=== PATIENT | male | born 1945 | race Caucasian/White ===

== ENCOUNTER 2024-08-06 20:17 | Emergency (ER) | payer MEDICARE, BC, SELFPAY ==
[2024-08-06] VITALS (7 sets, daily range): BP systolic 124–136; BP diastolic 76–81; PULSE 72–78; RESP 12–23; TEMP 36.8–36.9; O2SAT 93–95; BMI 29.8; BMI 40.6
--- NOTE | 2024-08-06 21:32 | PD.EDBACK ---
ED Back Injury Pain RME/HPI General Chief Complaint: Back Pain/Injury Stated Complaint: BACK PAIN Time Seen by Provider: 08/06/24 21:34 Source: patient, EMS, RN notes reviewed and old records reviewed Arrival date/time: 08/06/24 20:17 Mode of arrival: EMS Limitations: no limitations RME / HPI RME / HPI Narrative: 78-year-old male with past medical history of diabetes, CKD, hypertension, prostate cancer with ? Mets, HFpEF on 80 mg of Lasix who presented to the ED due to back pain. Patient states that she has been having stabbing, non-radiationg back pain for the past 3 months, increased today rated 10 out of 10, denies any trauma to the area, he also endorses some shortness of breath but relates it to the pain at this time. Patient denies other associated symptoms to include fever, urinary complaints, hematuria, acute chest pain, syncope, or abdominal pain. Improved with rest, worse with movement today Patient at baseline uses a walker to perform his ADLs however currently is unable to walk, however is able to extend the knee bend the knee bilaterally with equal sensation on all 4 extremities, he denies any urinary or bowel incontinence Treatments prior to arrival: other (No meds prior to arrival) Related Data Home Medications ?Medication ?Instructions ?Recorded ?Confirmed aspirin 81 mg capsule 81 mg PO QDAY 12/15/22 12/15/22 atorvastatin 20 mg tablet 20 mg PO QDAY 12/15/22 12/15/22 clonidine HCl 0.1 mg tablet 0.1 mg PO QDAY 12/15/22 12/15/22 dapagliflozin propanediol 10 mg 10 mg PO QDAY 12/15/22 12/15/22 tablet (Farxiga) finerenone 20 mg tablet (Kerendia) 20 mg PO QDAY 12/15/22 12/15/22 furosemide 40 mg tablet (Lasix) 40 mg PO QAM 12/15/22 12/15/22 hydralazine 50 mg tablet 50 mg PO TID 12/15/22 12/15/22 pantoprazole 40 mg tablet,delayed 40 mg PO QDAY 12/15/22 12/15/22 release pregabalin 50 mg capsule 50 mg PO QDAY 12/15/22 12/15/22 sildenafil 25 mg tablet 25 mg PO QDAY PRN Lung function 12/15/22 12/15/22 sitagliptin phosphate 100 mg 100 mg PO QDAY 12/15/22 12/15/22 tablet (Januvia) Allergies Allergy/AdvReac Type Severity Reaction Status Date / Time No Known Allergies Allergy Verified 08/06/24 20:20 Review of Systems Review of Systems Systems Reviewed: All systems reviewed, normal except as documented ED Exam Narrative Physical exam: Physical Exam GENERAL: NAD, AAOx3, obese HEENT: Moist mucosa. Eyes open, symmetrical, & clear CARDIO: Heart RRR, no obvious murmurs PULM: No noted coughing/dyspnea CTA B/L, no R/W/R GI: Abdomen soft, nondistended, no pain on palpation. BSx4 SKIN/MSK/EXT: No wounds/rashes/edema/amputations, no pain on palpation. Pedal pulses present B/L NEURO: AAOx3, able to move all 4 extremities, good extension and fexion of all 4 extremities, reflexes on B/L lower extremities +2, anal wink present. Normal L4-5 S1 reflexes motor or sensory. General Limitations: Present no limitations Course Course Course Narrative: 2149 CBC, CMP, Mag, UA ordered, CT lumbar wo contrast ordered 2209 CBC, CMP unremarkable, creatinine 2.1 which is around the patients baseline, pending CT lumbar at [facility] time [address] shows Postop fluid collection posterior to L4 4 x 3.3 x 2.5 cm, Status post transpedicular lumbar fusion L4-S1 with anatomic alignment, Small fractures involving the inferior left endplate L3, clinical correlation is advised, Moderate spinal stenosis L3-L4. Will order MRI lumbar spine w/wo contrast in the am. Quality Measures none Orders Category Date Time Status Insert IV STAT Care 08/06/24 21:45 Active MRI Screening NOW Care 08/07/24 00:[address] lumbar spine wo con Stat Exams 08/06/24 21:36 Completed MR lumbar spine wo/w con Stat Exams 08/07/24 Ordered CBC Stat Lab 08/06/24 22:10 Completed CMP [Comprehensive Metabolic Panel] Stat Lab 08/06/24 22:10 Completed Magnesium Stat Lab 08/06/24 22:10 Completed Urinalysis Stat Lab 08/06/24 20:54 Completed HYDROmorphone INJ [Dilaudid Inj] Med 08/06/24 22:10 Discontinued 0.5 mg IVP X1 ONE BiPAP / CPAP HS RT 08/06/24 23:04 Active Vital Signs Vital signs: Vital Signs Temperature 98.4 F 08/06/24 20:18 Pulse Rate 77 08/06/24 20:18 Respiratory Rate 17 08/06/24 20:18 Blood Pressure 124/76 08/06/24 20:18 Pulse Oximetry (%) 93 L 08/06/24 20:18 Oxygen Delivery Method Nasal Cannula 08/06/24 20:18 Oxygen Flow Rate 6 08/06/24 20:18 Back Pain / Injury MDM Narrative MDM Narrative:: 78-year-old male with past medical history of diabetes, CKD, hypertension, prostate cancer with ? Mets, HFpEF on 80 mg of Lasix who presented to the ED due to back pain. Patient states that she has been having back pain for the past 3 months ran out rated 10 out of 10 he also endorses some shortness of breath but relates it to the pain at this time. Patient at baseline uses a walker to perform his ADLs however currently is unable to walk, however is able to extend the knee bend the knee bilaterally with equal sensation on all 4 extremities, he denies any urinary or bowel incontinence. Labs evaluated found to be negative. Patient without abdominal pain, no pulsatile abdominal mass, doubt AAA. CT lumbar spine showed Small fractures involving the inferior left endplate L3, axial image 83, Moderate spinal stenosis L3-L4, Postop fluid collection posterior to L4 4 x 3.3 x 2.5 cm. Will order Lumbar MRI w/wo con to be done in the am. Patient data External records reviewed:: [facility] previous records Clinical information provided by:: patient and family Social determinants that could affect healthcare access:: none Patient has the following chronic illnesses:: HFpEF, CKD, HTN, DM, prostate cancer How is presenting disease/condition affected by chronic disease/condition?: caused by Evaluation data The following diagnostics were reviewed and interpreted by me:: lab results Lab and/or radiology exams considered but not ordered:: CT abdomen Interpretation Summary: No anemia, thrombocytopenia, or leukocytosis. BUN/creatinine 37/2.1 but the patient's baseline creatinine is approximately 1.8-2.0, urinalysis without evidence of infection. Medications / Prescriptions Medications or Prescriptions considered but not ordered:: see above Medication administrations:: Medication Administration History Discontinued Medications Hydromorphone HCl (Hydromorphone Inj 2 Mg/Ml Vial) 0.5 mg IVP X1 ONE Stop: 08/06/24 22:11 Last Admin: 08/06/24 22:22 Dose: 0.5 mg Documented By: CG as above Consultations Consultation(s) initiated? (list below): No Diagnosis Differential diagnosis back pain/injury: lumbar radiculopathy, sciatica, renal colic and AAA Most likely diagnosis given after review of the tests above:: radiculopathy of lumbar spine Admission Indicated Admission indicated?: not indicated (Patient signed out pending MRI) Admission Request Was there a request for admission?: No Disposition Plan Disposition Plan: other (specify) (Signed out to ED attending, Dr Ashley, pending MRIs, reevaluation, and final disposition.) Discharge Plan Plan Discharge Disposition comment: Stable at sign out Prescriptions/Referrals Prescriptions/Med Rec: No Action furosemide [Lasix] 40 mg Tablet 40 mg PO QAM clonidine HCl 0.1 mg Tablet 0.1 mg PO QDAY atorvastatin 20 mg Tablet 20 mg PO QDAY sildenafil 25 mg Tablet 25 mg PO QDAY PRN (Reason: Lung function) Rx Instructions: administer 30 minutes to 4 hours before activity pantoprazole 40 mg Tablet,Delayed Release (Dr/Ec) 40 mg PO QDAY hydralazine 50 mg Tablet 50 mg PO TID pregabalin 50 mg Capsule 50 mg PO QDAY Januvia 100 mg Tablet 100 mg PO QDAY Farxiga 10 mg Tablet 10 mg PO QDAY Kerendia 20 mg Tablet 20 mg PO QDAY aspirin 81 mg Capsule 81 mg PO QDAY Referrals: No Primary/Family,Physician [Primary Care Provider] - In 1 week Problem List Clinical Impression: Acute back pain Patient/Caregiver Discharge Instructions Print Language: Bulgarian Attestation Attestation I did a history and physical exam, was present during the pertinent positive negatives of the history physical exam, review of systems, management of the patient emergency department with the resident, reviewed his note and agree
--- NOTE | 2024-08-06 21:36 | XR_ITS ---
Examination: CT lumbar spine, without contrast. 2-D sagittal reconstructions. 2-D coronal reconstructions. 3-D reconstructions. Date and time of exam:August 07, 1999 2517 hours INDICATIONS: Onset back pain today CTDI: vol (mGy):71 DLP: (mGycm):1848 Technique: Multiple 1.25 mm axial sections of the lumbar spine without intravenous contrast have been obtained. 2-D sagittal and coronal reconstructions have been obtained. 3-D reconstructions have been obtained. Low dose protocols were performed. One or more of the following dose reduction techniques were used; automated exposure control, adjustment of the mA and/or KV according to patient size, use of iterative reconstruction technique. Findings: Status post transpedicular lumbar fusion L4-S1 with anatomic alignment Laminectomies L3-L5 Lumbar pedicles and transverse processes intact Degenerative disc disease L2-L3, L3-L4 with gas and disc phenomena Postop fluid collection posterior to L4 4 x 3.3 x 2.5 cm A small fractures involving the inferior left endplate of L3, axial image 83, clinical correlation advised L3-L4 spinal stenosis, axial image 65, secondary to facet arthropathy with moderate left mild right neural foraminal stenosis IMPRESSION: Status post transpedicular lumbar fusion L4-S1 with anatomic alignment Small fractures involving the inferior left endplate L3, axial image 83, clinical correlation is advised Moderate spinal stenosis L3-L4
[2024-08-06 22:07] LABS: Collection Type, Urine Clean Catch; Squamous Epithelial Cell,Urine 0 /hpf (0-5)
[2024-08-06] MEDS: HYDROmorphone INJ 2 MG/ML VIAL 0.5 MG IVP (22:22)
[2024-08-06 22:26] LABS: Bilirubin,Urine Negative (Negative); Blood,Urine Negative (Negative); Clarity,Urine Clear (Clear/Hazy); Color,Urine Lt-Yellow (Lt Yel-Yel); Glucose, Urine 3+ (Negative); Ketones,Urine Negative (Negative); Leukocyte Esterase,Urine Negative (Negative); Nitrite,Urine Negative (Negative); PH,Urine 6.0 (5.0-7.0); Protein,Urine Trace (Neg - Trace); RBC,Urine 3 /hpf (0-3); Specific Gravity,Urine 1.010 (1.001-1.035); Urobilinogen,Urine Negative mg/dL (0.0-1.0); WBC,Urine 1 /hpf (0-5)
[2024-08-06 22:41] LABS: Basophils # (Auto) 0.1 Thou/mm3 (0.0-0.2); Basophils % (Auto) 1 % (0-2.5); Eosinophils # (Auto) 0.3 Thou/mm3 (0.0-0.5); Eosinophils % (Auto) 4 % (0-10); Hematocrit 44.8 % (41.0-53.0); Hemoglobin 16.1 g/dL (13.5-16.0); Immature Granulocytes Auto 0.03 Thou/mm3 (0.00-0.00); Lymphocytes # (Auto) 0.6 Thou/mm3 (1.0-4.8); Lymphocytes % (Auto) 7 % (10-50); Mean Corpuscular HGB Conc 35.9 g/dl (31.0-37.0); Mean Corpuscular Hemoglobin 30.1 pg (25.0-35.0); Mean Corpuscular Volume 84 fL (80-100); Monocytes # (Auto) 1.0 Thou/mm3 (0.0-0.8); Monocytes % (Auto) 12 % (0-12); Neutrophils # (Auto) 6.7 Thou/mm3 (1.8-7.7); Neutrophils % (Auto) 77 % (37-80); Nucleated Red Blood Cell # 0.00 Thou/mm3 (0.00-0.00); Nucleated Red Blood Cell % 0 /100 WBC (0); Platelet Count 176 Thou/mm3 (140-440); RDW Standard Deviation 50.7 fL (35.1-43.9); Red Blood Count 5.34 Miln/mm3 (4.50-5.90); White Blood Count 8.8 Thou/mm3 (3.8-10.6)
[2024-08-06 23:03] LABS: Alanine Aminotransferase 8 U/L (10-49); Albumin, Serum 4.4 gm/dL (3.4-4.8); Albumin/Globulin Ratio 1.5 (1.2-2.2); Alkaline Phosphatase 77 U/L (46-116); Anion Gap 9 (7-16); Aspartate Amino Transferase < 10 U/L (0-34); BUN/Creatinine Ratio 18 Ratio (12-20); Bilirubin,Total 0.5 mg/dL (0.3-1.2); Blood Urea Nitrogen 37 mg/dL (9-23); Calcium 9.4 mg/dL (8.3-10.6); Calcium (Corrected) 9.4 mg/dL (8.5-10.1); Carbon Dioxide 28.5 mMol/L (20.0-31.0); Chloride 98 mMol/L (98-107); Creatinine (Component) 2.1 mg/dL (0.6-1.3); Estimated Creatinine Clearance 29.5 mL/min (>60); Globulin 2.9 gm/dL (2.3-3.5); Glucose 111 mg/dL (74-106); Magnesium 2.1 mg/dL (1.6-2.6); Osmolality,Calculated 279 (275-295); Potassium 4.1 mMol/L (3.4-5.1); Sodium 135 mMol/L (136-145); Total Protein 7.3 gm/dL (5.7-8.2); eGFR 32 See Note
[2024-08-07] VITALS (13 sets, daily range): BP systolic 107–149; BP diastolic 64–92; PULSE 61–79; RESP 12–20; TEMP 36.1–37; O2SAT 92–99
--- NOTE | 2024-08-07 | XR_ITS ---
Examination: MRI lumbar spine without contrast Date and time of exam: August 07, 2024 1415 hours INDICATIONS: Back pain stabbing sensation 3 months Technique: Multiple MRI axial and sagittal sections lumbar spine. Sagittal T2-weighted images, TR 3500, TE 118 T1 weighted transverse sections, TR 688 T8.5, T2-weighted sagittal sections T1 weighted sagittal sections TR 621, TE 30 T2 axial sections, TR 4, 190, TE 84. Findings: Adequate alignment lumbar vertebral bodies Laminectomies L4, L5 with transpedicular lumbar stabilization L4-S1 No lumbar fracture Hemangiomatous change L3 L5-S1 3 mm left paracentral disc bulge L4-L5 2 mm central lumbar disc bulge L3-L4 9 mm central lumbar disc bulge extending to the foraminal regions with moderate bilateral L3 ganglionic compression L2-L3 5 mm right foraminal disc bulge producing moderate right L2 ganglionic compression L1-L2 no disc protrusion IMPRESSION: L5-S1 3 mm left paracentral disc bulge L4-L5 2 mm central lumbar disc bulge L3-L4 9 mm central lumbar disc bulge extending to the foraminal regions with moderate bilateral L3 ganglionic compression L2-L3 5 mm right foraminal disc bulge producing moderate right L2 ganglionic compression
--- NOTE | 2024-08-07 03:16 | PC.NURSE ---
WE HAD DOWN TIME FROM [id number].
--- NOTE | 2024-08-07 07:21 | EDNOTE_ITS ---
Emergency Room Addendum Addendum Narrative: 0600: Care assumed from Dr. Rain, the previous shift emergency physician. Past medical, surgical, social and family history reviewed. Vitals and home medications reviewed. I will assume the care of the patient at this time, pending MRI lumbar spine w/wo con. Please refer to the emergency department record for history and examination from initial visit.?The following addendum documentation note is intended to reflect any pending information, findings, or radiology results not included in the patient?s initial chart. We reviewed all the results, analysis, and treatment plans. Patient states he is followed by spine surgeon Dr. Abrams in [place] and has an appointment scheduled 08/27/2023. Patient mentioned he was scheduled for an MRI tomorrow. However, not that he had the MRI performed today, will wait for his appointment on 08/26/2024. Patient is amenable to discharge. RADIOLOGY Ordering Physician: Alyce Ashley MD Date of Service: 08/07/24 Procedure(s): MR lumbar spine wo con Accession Number(s): [id number] cc: Deon Mckeon MD; NO PRIMARY/FAMILY,PHYSICIAN; Alyce Ashley MD~ Examination: MRI lumbar spine without contrast Date and time of exam: August 07, 2024 1415 hours INDICATIONS: Back pain stabbing sensation 3 months Technique: Multiple MRI axial and sagittal sections lumbar spine. Sagittal T2-weighted images, TR 3500, TE 118 T1 weighted transverse sections, TR 688 T8.5, T2-weighted sagittal sections T1 weighted sagittal sections TR 621, TE 30 T2 axial sections, TR 4, 190, TE 84. Findings: Adequate alignment lumbar vertebral bodies Laminectomies L4, L5 with transpedicular lumbar stabilization L4-S1 No lumbar fracture Hemangiomatous change L3 L5-S1 3 mm left paracentral disc bulge L4-L5 2 mm central lumbar disc bulge L3-L4 9 mm central lumbar disc bulge extending to the foraminal regions with moderate bilateral L3 ganglionic compression L2-L3 5 mm right foraminal disc bulge producing moderate right L2 ganglionic compression L1-L2 no disc protrusion IMPRESSION: L5-S1 3 mm left paracentral disc bulge L4-L5 2 mm central lumbar disc bulge L3-L4 9 mm central lumbar disc bulge extending to the foraminal regions with moderate bilateral L3 ganglionic compression L2-L3 5 mm right foraminal disc bulge producing moderate right L2 ganglionic compression Dictated By: Deon Mckeon MD Signed By: <Electronically signed by Deon Mckeon MD in [place]>08/07/24 1455
--- NOTE | 2024-08-07 08:32 | PC.NURSE ---
Report received from pm nurse, patient to er with c/o generalized back pain, awaiting MRI, patient rates pain at 4/10 at this time and states it is tolerable, patient on bipap at 65% Fi02 with 02 sats at 98% at this time and is falling asleep intermittently. Patient has h/o sleep apnea. at bedside, patient has no other needs at this time, call light within reach.
--- NOTE | 2024-08-07 09:44 | PC.OT ---
Called pathology technician states their machine is down at this time, unknown when it will be available, charge nurse, Leidy made aware as well as patient and at bedside made aware.
--- NOTE | 2024-08-07 10:45 | PC.NURSE ---
Patient assisted with urinal by his . Patient sleeping internittently. Patient remains on bipap and is awaiting MRI. Patient and have no other needs at this time.
--- NOTE | 2024-08-07 14:00 | PC.NURSE ---
Patient at proof technician helper states MR Lumbar spine can not be done do to patient's creatinine being elevated, Dr. Ashley made aware, new orders received.
--- NOTE | 2024-08-07 15:57 | PC.NURSE ---
Patient back from MRI patient's on 5l oxymask, 02 sats 82-84%, Dr. Ashley made aware, RT called to place patient back on bi pap.
--- NOTE | 2024-08-07 16:30 | PC.NURSE ---
at bedside states patient uses home 02 and cpap at night, 5l 02 as needed and continuosly at home if neede, Dr. Ashley made aware states can go home and bring 02 to ER to be discharged home with, patient and made aware.
--- NOTE | 2024-08-07 17:45 | PC.NURSE ---
Patient sitting up in wheelchair on 5l/oxymask, 02 sats 91%, per patient normal 02 sats on oxygen is 90-91%, ok to d/c per Dr. Ashley, awaiting MRI cd then will d/c home
== END 2024-08-07 17:25 | disposition home or self-care (01) ==
PROVIDERS: Student in an Organized Health Care Education/Training Program; Emergency Provider Emergency Medicine
DX: M54.9 Dorsalgia, unspecified (principal); I13.0 Hypertensive heart and chronic kidney disease with heart failure and stage 1 through stage 4 chronic kidney disease, or unspecified chronic kidney disease; E11.22 Type 2 diabetes mellitus with diabetic chronic kidney disease; N18.9 Chronic kidney disease, unspecified; I50.30 Unspecified diastolic (congestive) heart failure; M51.379 Other intervertebral disc degeneration, lumbosacral region without mention of lumbar back pain or lower extremity pain; M51.369 Other intervertebral disc degeneration, lumbar region without mention of lumbar back pain or lower extremity pain; M48.061 Spinal stenosis, lumbar region without neurogenic claudication
CPT/HCPCS: 36415; 72131; 72148; 80053; 81001; 83735; 85025; 94660; 96374; 99284; J1171

== ENCOUNTER 2024-08-07 22:18 | Emergency (ER) | payer MEDICARE, BC, SELFPAY ==
[2024-08-07 22:19] VITALS: PULSE 76
[2024-08-07 22:23] VITALS: BP 116/66; PULSE 81; RESP 19; TEMP 37.2; O2SAT 91
--- NOTE | 2024-08-07 22:23 | EKG_ITS ---
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: : 1945 Requested By: ED Temporary Provider Order Number: [id number] Reading MD: ED Temporary Provider Measurements Intervals Drake Rate: 80 P: 38 PA: 189 QRS: 150 QRSD: 115 T: 22 QT: 411 QTc: 476 Interpretive Statements SINUS RHYTHM INDETERMINATE AXIS INCOMPLETE RIGHT BUNDLE BRANCH BLOCK [90+ ms QRS DURATION, TERMINAL R IN V1/V2, 40+ ms S IN I/aVL/V4/V5/V6] POSSIBLE RIGHT VENTRICULAR HYPERTROPHY [SOME/ALL OF: PROMINENT R IN V1, LATE TRANSITION, RAD, RUDY, SSS] POSSIBLE ANTERIOR MYOCARDIAL INFARCTION , OF INDETERMINATE AGE [30 ms Q WAVE IN V3/V4, OR R < 0.2 mV IN V4] Compared to ECG 12/12/2022 09:36:51 Incomplete right bundle-branch block now present Myocardial infarct finding now present Right bundle-branch block no longer present /store/S0/[id number].pdf
[2024-08-07 22:33] VITALS: O2SAT 95
--- NOTE | 2024-08-07 23:02 | PD.EDSOB ---
ED SOB =RME/HPI General Chief Complaint: Shortness of Breath/Dyspnea Stated Complaint: SOB Time Seen by Provider: 08/07/24 22:47 Source: patient and RN notes reviewed Arrival date/time: 08/07/24 22:18 Limitations: no limitations RME / HPI RME / HPI Narrative: Dr. Smith's Main ED Evaluation: 78yo male with a history of DM, CKD, HTN, prostate CA with ? Mets, HFpEF, NICOLAS BIBA from home presents to the ED for a chief complaint of shortness of breath. Patient states he started having left-sided chest pain (that has since resolved) and shortness of breath just HYPOID GEAR TESTER. Patient states he was unable to bring up his oxygen at home, so he called 911 to come in for evaluation. Patient denies any fever, chills, N/V, weakness, new back pain or any other associated symptoms. Patient is on CPAP at home. Patient denies any tobacco use. NKA. Related Data Home Medications ?Medication ?Instructions ?Recorded ?Confirmed aspirin 81 mg capsule 81 mg PO QDAY 12/15/22 08/07/24 atorvastatin 20 mg tablet 20 mg PO QDAY 12/15/22 08/07/24 dapagliflozin propanediol 10 mg 10 mg PO QDAY 12/15/22 08/07/24 tablet (Farxiga) finerenone 20 mg tablet (Kerendia) 20 mg PO .qod 12/15/22 08/07/24 furosemide 40 mg tablet (Lasix) 80 mg PO QAM 12/15/22 08/07/24 hydralazine 50 mg tablet 50 mg PO TID 12/15/22 08/07/24 pregabalin 50 mg capsule 50 mg PO QDAY 12/15/22 08/07/24 sildenafil 25 mg tablet 25 mg PO QDAY PRN Lung function 12/15/22 08/07/24 sitagliptin phosphate 100 mg 100 mg PO QDAY 12/15/22 08/07/24 tablet (Januvia) carvedilol 6.25 mg tablet 40 mg PO BID 08/07/24 08/07/24 tirzepatide 10 mg/0.5 mL 10 mg subcut 08/07/24 subcutaneous pen injector (Dre) Allergies Allergy/AdvReac Type Severity Reaction Status Date / Time No Known Allergies Allergy Verified 08/07/24 22:27 Review of Systems Review of Systems Systems Reviewed: All systems reviewed, normal except as documented Past Medical History Past Medical History NEUROLOGIC: Positive Neurological Disorders, Dementia (early dementia) and Brain Tumor; Negative Cerebrovascular Accident, Transient Ischemic Attacks (TIA), Alzheimer's Disease, Parkinson's Disease, Meningitis, Seizures, Epilepsy, Multiple Sclerosis, Cerebral Palsy, Amyotrophic Lateral Sclerosis (ALS/Tanya Gehrig's), Guillain-[place] Syndrome, Spina Bifida, Paralysis, Peripheral Neuropathy, Joseph's Palsy, Subdural Hematoma, Migraine, Head Trauma, Spinal Cord Injury or Traumatic Brain Injury CARDIAC: Positive Cardiac Disorders, Hypercholesterolemia, Congestive Heart Failure, Cardiomyopathy, Edema, Cellulitis, Deep Vein Thrombosis and Hypertension; Negative Myocardial Infarction, Cardiac Arrhythmia, Atrial Fibrillation, Angina, Heart Murmur, Coronary Artery Disease, Atherosclerotic Heart Disease, Peripheral Vascular Disease, Aneurysm, Congenital Heart Disease, Valvular Heart Disease, Rheumatic Fever, Pericarditis, Hypotension or Varicose Veins RESPIRATORY: Positive Bronchitis (in the past), Pneumonia (in the past), Tuberculosis (in past) and Sleep Apnea (use machine at night); Negative Chronic Obstructive Pulmonary Disease (COPD), Asthma, Emphysema, Pulmonary Fibrosis, Cystic Fibrosis, Pulmonary Embolism or Pulmonary Edema GASTROINTESTINAL: Positive Ulcer, Hemorrhoids and Obesity; Negative Gastrointestinal Disorders, Hepatitis, Cirrhosis, Pancreatitis, Celiac Disease, Gall Bladder Disease, Gastrointestinal Bleed, Esophageal Varices, Overton's Esophagus, Colitis, Ulcerative Colitis, Diverticulitis, Diverticulosis, Colorectal Cancer, Irritable Bowel, Crohn's Disease, Obstructive Bowel, Hiatal Hernia or Gastroesophageal Reflux Disease GENITOURINARY: Positive Genitourinary Disorders, Renal Disease, Prostate Cancer and Benign Prostatic Hyperplasia; Negative Kidney Stones, Polycystic Kidney Disease, Neurogenic Bladder, Inguinal Hernia or Dialysis REPRODUCTIVE: Negative Fibroids or Testicular Cancer MUSCULOSKELETAL: Positive Musculoskeletal Disorders, Scoliosis and Carpal Tunnel Syndrome; Negative Muscular Dystrophy, Myasthenia Gravis, Marfan's Syndrome, Bone Cancer, Arthritis, Rheumatoid Arthritis, Osteoporosis, Gout, Fibromyalgia, Fractures, Degenerative Joint Disease, Osteomyelitis or Poliovirus ENT: Positive Cataracts; Negative Glaucoma, Blind, Retinal Detachment, Macular Degeneration, Ear Infection, Deafness, Head Trauma or Eye Prosthesis ENDOCRINE: Positive Endocrine Disorders and Diabetes Mellitus Type 2; Negative Diabetes Mellitus Type 1, Hypoglycemia, [place]'s Syndrome, Betito's Disease, Hyperthyroidism, Hypothyroidism, Parathyroid Disease, Pituitary Disease, Syndrome of Inappropriate Antidiuretic Hormone (SIADH), Adrenal Disease or Graves' Disease HEMATOLOGIC: Negative Blood Disorders, Anemia, Leukemia, Hemophilia, Thalassemia, Sickle Cell Disease or Clotting Problems PSYCHO/SOCIAL: Positive Post Traumatic Stress Disorder; Negative Psychiatric Problems, Schizophrenia, Recreational Drug Use, Bipolar Disorder, Depression, Anxiety, Behavior Problems, Self-Mutilation, Attention Deficit Disorder, Attention Deficit Hyperactivity Disorder or Eating Disorder OTHER HISTORY: Positive Hospitalization, Autoimmune Disease, Falls, Anesthesia Reactions (trigger PTSD), Radiation Therapy, Chicken Pox, Measles, Mumps, Cancer (stage 4 cancer in back, shoulder and ribs) and Prostate Cancer; Negative Down Syndrome, Autism, Developmental Delay, Shingles, Blood Transfusions, Blood Transfusion Reaction, Organ Transplant, Chemotherapy, Hyperbaric Therapy, MRSA, VRSA, Vancomycin-Resistant Enterococci, Human Immunodeficiency Virus (HIV), Rubella (Azeri Measles), Pertussis, Clostridium Difficile, Colorectal Cancer, Lung Cancer or Testicular Cancer Family History FAMILY HISTORY: Positive Family Cardiac Disorders and Family Surgery; Negative Family Psychiatric Problems, Family Respiratory Disorders, Family Gastrointestinal Problems, Family Cancer or Family Anesthesia Reaction Surgical History SURGICAL: Negative Cardiac Surgery, Open Heart Surgery, Coronary Artery Bypass Graft, Valve Replacement, Vascular Surgery, Coronary Stent, Cardiac Catheterization, Pacemaker, Angiogram, Auto Implanted Cardiovert Defib, Carotid Endarterectomy, Endocrine Surgery, Thyroidectomy, Ear Surgery, Tympanostomy Tube, Eye Surgery, Nose Surgery, Oral Surgery, Tonsillectomy, Adenoidectomy, Cochlear Implant, Corneal Transplant, Throat Surgery, Abdominal Surgery, Tracheostomy, Gastric Bypass Surgery, Gastrostomy, Bowel Surgery, Nephrectomy, Transurethral Resection, Joint Replacement, Amputation, Open Reduction Internal Fixation, Arthroscopy, Neurologic Surgery, Brain Shunt, Vasectomy or Organ Transplant Social History SMOKING STATUS: Never smoker SUBSTANCE USE: does not use ED Exam General Limitations: Present no limitations General appearance: Present alert, in no apparent distress, obese and other (appears chronically ill) Head Head exam: Present atraumatic Eye Eye exam: Present normal appearance, PERRL and EOMI ENT ENT exam: Present normal exam, normal oropharynx and mucous membranes moist Neck Neck exam: Present normal inspection, full ROM and trachea midline Chest Chest inspection: Present normal inspection and symmetric chest wall rise Respiratory Respiratory exam: Present other (minimal crackles); Absent respiratory distress, wheezes or accessory muscle use Cardiovascular Cardiovascular exam: Present regular rate, normal rhythm and normal heart sounds Abdominal Exam Abdominal exam: Present soft and normal bowel sounds Extremities Exam Extremities exam: Present normal inspection and full ROM Back Exam Back exam: Present normal inspection and full ROM Neurological Exam Neurological exam: Present alert, oriented X3 and CN II-XII intact Psychiatric Psychiatric exam: Present normal affect and normal mood Skin Skin exam: Present warm, dry, intact and normal color Course Course Course Narrative: CXR is ordered for determining the etiology of shortness of breath. Quality Measures none Orders Category Date Time Status EKG (ED ONLY) *Do not use* NOW Care 08/07/24 22:23 Completed EKG (ED ONLY) *Do not use* NOW Care 08/07/24 23:11 Completed Referral Physical Therapy Stat Cons 08/08/24 04:19 Active EKG (ED Only) Stat Exams 08/07/24 22:23 Draft EKG (ED Only) Stat Exams 08/07/24 23:11 Draft XR chest 1V portable Stat Exams 08/07/24 23:11 Completed B-Type Natriuretic Peptide Stat Lab 08/07/24 23:41 Completed CBC Stat Lab 08/07/24 23:41 Completed Comprehensive Metabolic Panel Stat Lab 08/07/24 23:41 Completed Drug Screen,Urine Stat Lab 08/08/24 01:55 Completed LDH (Lactate Dehydrogenase) Stat Lab 08/07/24 23:41 Completed Magnesium Stat Lab 08/07/24 23:41 Completed Partial Thromboplastin Time Stat Lab 08/07/24 23:41 Completed Prothrombin Time with INR Stat Lab 08/07/24 23:41 Completed Troponin I Stat Lab 08/07/24 23:41 Completed Troponin I Stat Lab 08/08/24 04:48 Received Urinalysis Stat Lab 08/08/24 01:55 Completed O2 [Oxygen Delivery] NOW RT 08/07/24 22:27 Active Vital Signs Vital signs: Vital Signs Temperature 98.9 F 08/07/24 22:23 Pulse Rate 81 08/07/24 22:23 Respiratory Rate 19 08/07/24 22:23 Blood Pressure 116/66 08/07/24 22:23 Pulse Oximetry (%) 91 L 08/07/24 22:23 Oxygen Delivery Method Room Air 08/07/24 22:23 Shortness of Breath / Dyspnea MDM Narrative MDM Narrative:: 78-year-old male with history of diabetes, hypertension, chronic renal insufficiency, high cholesterol return to the emergency department for increasing oxygen level tonight. The patient is normally on 5 L of oxygen. In the emergency department EKG does not show any ST elevations or depressions. Blood pressure here is 116/66 and 95% on 5 L. White count is 10 without ischemia, anemia, or thrombocytopenia INR is 1.2. Chest x-ray does not show acute CHF. Patient claims he is more weak. If the patient cannot take care of himself at home then he will need a PT OT evaluation. At this time I do not believe the patient is having a pulmonary embolism Patient data External records reviewed:: [facility] previous records (Per chart review, patient states he was seen here yesterday for back pain.) Clinical information provided by:: patient Social determinants that could affect healthcare access:: none Patient has the following chronic illnesses:: DM, CKD, HTN, prostate CA with ? Mets, HFpEF, NICOLAS How is presenting disease/condition affected by chronic disease/condition?: exacerbated by Evaluation data The following diagnostics were reviewed and interpreted by me:: lab results, radiology exam(s) and EKG tracing(s) Lab and/or radiology exams considered but not ordered:: none Interpretation Summary: EKG done at 2225, NSR, rate of 80, incomplete RBBB, DC: 159, QTc: 447, ST changes in V2 and V3, no ST elevations or depressions, according to my interpretation. Medications / Prescriptions Medications or Prescriptions considered but not ordered:: none Medication administrations:: as above Consultations Consultation(s) initiated? (list below): No Diagnosis Shortness of Breath Differential Diagnosis: community acquired pneumonia and other (CHF exacerbation, STEMI, NSTEMI, atypical chest pain) Most likely diagnosis given after review of the tests above:: see clinical impression below Admission Indicated Admission indicated?: not indicated Admission Request Was there a request for admission?: No Disposition Plan Disposition Plan: other (specify) (PT/OT for possible placement. Signed out to Dr. Morales pending final disposition) Discharge Plan Prescriptions/Referrals Prescriptions/Med Rec: No Action furosemide [Lasix] 40 mg Tablet 80 mg PO QAM atorvastatin 20 mg Tablet 20 mg PO QDAY sildenafil 25 mg Tablet 25 mg PO QDAY PRN (Reason: Lung function) Rx Instructions: administer 30 minutes to 4 hours before activity hydralazine 50 mg Tablet 50 mg PO TID pregabalin 50 mg Capsule 50 mg PO QDAY Januvia 100 mg Tablet 100 mg PO QDAY dapagliflozin propanediol [Farxiga] 10 mg Tablet 10 mg PO QDAY Kerendia 20 mg Tablet 20 mg PO .qod aspirin 81 mg Capsule 81 mg PO QDAY carvedilol 6.25 mg tablet 40 mg PO BID Mounjaro 10 mg/0.5 mL pen injector 10 mg SUBCUT Patient Comments: INJECT 10MG SUBCUTANEOUSLY WEEKLY Referrals: No Primary/Family,Physician [Primary Care Provider] - In 1 week Problem List Clinical Impression: NICOLAS (obstructive sleep apnea) Patient/Caregiver Discharge Instructions Print Language: Polish
--- NOTE | 2024-08-07 23:11 | XR_ITS ---
Examination: AP chest single view TECHNIQUE: Portable sitting AP chest single view Date and time: August 07, 2024 11:31 PM Comparison March 18, 2022 INDICATION: Shortness of breath today. FINDINGS: Mild enlargement cardiac contour Prominent vascular congestion including central vascular engorgement No lobar pneumonia Moderate osteopenia IMPRESSION: Prominent vascular congestion No lobar pneumonia
--- NOTE | 2024-08-07 23:11 | EKG_ITS ---
[facility] Test Date: 2024-08-07 Pat Name: IVONE BENOIT Department: Room: - Gender: Male Nicu Rn: : 1945 Requested By: Red Mcmahon Order Number: [id number] Reading MD: Red Mcmahon Measurements Intervals [place] Rate: 80 P: 42 ID: [id number] QRS: 148 QRSD: 114 T: 19 QT: 387 QTc: 448 Interpretive Statements SINUS RHYTHM INDETERMINATE AXIS INCOMPLETE RIGHT BUNDLE BRANCH BLOCK [90+ ms QRS DURATION, TERMINAL R IN V1/V2, 40+ ms S IN I/aVL/V4/V5/V6] POSSIBLE RIGHT VENTRICULAR HYPERTROPHY [SOME/ALL OF: PROMINENT R IN V1, LATE TRANSITION, RAD, RUDY, SSS] POSSIBLE ANTERIOR MYOCARDIAL INFARCTION , OF INDETERMINATE AGE [30 ms Q WAVE IN V3/V4, OR R < 0.2 mV IN V4] INFERIOR MYOCARDIAL INFARCTION , OF INDETERMINATE AGE [40+ ms Q WAVE AND/OR ST/T ABNORMALITY IN II/aVF] Compared to ECG 12/12/2022 09:36:51 Incomplete right bundle-branch block now present Myocardial infarct finding now present Right bundle-branch block no longer present /store/S0/[id number].pdf
[2024-08-07 23:53] LABS: Basophils # (Auto) 0.1 Thou/mm3 (0.0-0.2); Basophils % (Auto) 1 % (0-2.5); Eosinophils # (Auto) 0.2 Thou/mm3 (0.0-0.5); Eosinophils % (Auto) 2 % (0-10); Hematocrit 46.5 % (41.0-53.0); Hemoglobin 16.1 g/dL (13.5-16.0); Immature Granulocytes Auto 0.04 Thou/mm3 (0.00-0.00); Lymphocytes # (Auto) 0.4 Thou/mm3 (1.0-4.8); Lymphocytes % (Auto) 4 % (10-50); Mean Corpuscular HGB Conc 34.6 g/dl (31.0-37.0); Mean Corpuscular Hemoglobin 30.2 pg (25.0-35.0); Mean Corpuscular Volume 87 fL (80-100); Monocytes # (Auto) 1.0 Thou/mm3 (0.0-0.8); Monocytes % (Auto) 10 % (0-12); Neutrophils # (Auto) 9.0 Thou/mm3 (1.8-7.7); Neutrophils % (Auto) 84 % (37-80); Nucleated Red Blood Cell # 0.00 Thou/mm3 (0.00-0.00); Nucleated Red Blood Cell % 0 /100 WBC (0); Platelet Count 173 Thou/mm3 (140-440); RDW Standard Deviation 54.4 fL (35.1-43.9); Red Blood Count 5.33 Miln/mm3 (4.50-5.90); White Blood Count 10.7 Thou/mm3 (3.8-10.6)
[2024-08-08] VITALS (7 sets, daily range): BP systolic 111–127; BP diastolic 58–72; PULSE 81–84; RESP 17–87; TEMP 36.6–37; O2SAT 93–96; BMI 41.5
[2024-08-08 00:22] LABS: INR 1.2 (0.9-1.3); Partial Thromboplastin Time 29.1 Seconds (22.0-36.0); Prothrombin Time 12.5 Seconds (9.0-12.2)
[2024-08-08 00:36] LABS: B-Type Natriuretic Peptide 183 pg/mL (0-100)
[2024-08-08 00:51] LABS: Alanine Aminotransferase < 7 U/L (10-49); Albumin, Serum 4.0 gm/dL (3.4-4.8); Albumin/Globulin Ratio 1.4 (1.2-2.2); Alkaline Phosphatase 74 U/L (46-116); Anion Gap 9 (7-16); Aspartate Amino Transferase 10 U/L (0-34); BUN/Creatinine Ratio 19 Ratio (12-20); Bilirubin,Total 0.7 mg/dL (0.3-1.2); Blood Urea Nitrogen 37 mg/dL (9-23); Calcium 9.5 mg/dL (8.3-10.6); Calcium (Corrected) 9.5 mg/dL (8.5-10.1); Carbon Dioxide 27.5 mMol/L (20.0-31.0); Chloride 100 mMol/L (98-107); Creatinine (Component) 2.0 mg/dL (0.6-1.3); Globulin 2.9 gm/dL (2.3-3.5); Glucose 130 mg/dL (74-106); Magnesium 2.1 mg/dL (1.6-2.6); Osmolality,Calculated 282 (275-295); Potassium 4.0 mMol/L (3.4-5.1); Sodium 136 mMol/L (136-145); Total Protein 6.9 gm/dL (5.7-8.2); Troponin I 0.020 ng/mL (0.0-0.045); eGFR 34 See Note
[2024-08-08 01:03] LABS: LDH (Lactate Dehydrogenase) 206 U/L (120-246)
[2024-08-08 02:12] LABS: Collection Type, Urine Clean Catch; Squamous Epithelial Cell,Urine 0 /hpf (0-5)
[2024-08-08 02:22] LABS: Bilirubin,Urine Negative (Negative); Blood,Urine Negative (Negative); Clarity,Urine Clear (Clear/Hazy); Color,Urine Yellow (Lt Yel-Yel); Glucose, Urine 3+ (Negative); Hyaline Casts,Urine < 1 /hpf (0-1); Ketones,Urine Negative (Negative); Leukocyte Esterase,Urine Negative (Negative); Nitrite,Urine Negative (Negative); PH,Urine 6.0 (5.0-7.0); Protein,Urine 1+ (Neg - Trace); RBC,Urine 1 /hpf (0-3); Specific Gravity,Urine 1.019 (1.001-1.035); Urobilinogen,Urine Negative mg/dL (0.0-1.0); WBC,Urine < 1 /hpf (0-5)
[2024-08-08 04:00] LABS: Amphetamine/Methamp Scrn,U Negative (Negative); Barbiturate Screen,Urine Negative (Negative); Benzodiazepines Screen,Urine Negative (Negative); Benzoylecgonine Screen, Ur Negative (Negative); Fentanyl Screen,Urine Negative (Negative); Opiate Screen,Urine Positive (Negative); THC Screen,Urine Negative (Negative)
[2024-08-08 05:26] LABS: Troponin I 0.022 ng/mL (0.0-0.045)
--- NOTE | 2024-08-08 06:23 | PD.EDADDENDU ---
Emergency Room Addendum Addendum Narrative: 0600: Care assumed from Dr. Rain the previous shift emergency physician. Past medical, surgical, social and family history reviewed. Vitals and home medications reviewed. I will assume the care of the patient at this time, pending PT/OT for possible placement and final disposition. Please refer to the emergency department record for history and examination from initial visit.? Physical exam by me shows patient under no acute distress at this time. environmental services supervisor set up home health to start on 08/13. 1200: Patient discharged with home health and was told to follow up with his PCP to discuss long-term home placement. Continue same medications.\ Diagnoses: -Obstructive sleep apnea -Weakness
--- NOTE | 2024-08-08 09:10 | PC.CC ---
Patient is a 78 year-old male who presents to the hospital from home for SBO. ASW received referral for possible SNF placement. ASWKera made ebrk-oe-duow contact with patient. ASW introduced self, role, and reason for visit. Patient appeared alert and oriented to self, location, and situation. ASW completed initial with patient's , Christelle Cabello as he has the oxygen mask and unable to answer question. Patient's reports that her and the patient live home alone. She reports that patient has had a hard time ambulating and completing his own ADLs recently. Patient does have a lift chair at home and two different walker that patient he uses to ambulate. Patient uses a C-PAP machine at home. ASW informed patient and that the patient would require a 3 midnight stay for SNF placement to be authorized by insurance. Patient does not meet criteria for in-patient admit per Dr. Morales. ASW offered patient and Home Health Services. Patient and requested [facility]. Patient's primary provider is Jose. ASW to send referral for home health services.
--- NOTE | 2024-08-08 10:21 | PC.NURSE ---
ATTEMPTED TO GET PT UP FROM BED SO HE CAN USE THE URINAL, PT WAS UNABLE TO STAND UP AND WAS PLACED BACK ON THE BED.
--- NOTE | 2024-08-08 10:43 | PC.CC ---
[facility] was able to accept the patient Start of Date 08/13/2024. ASW made telephone contact with , Christelle who was receptive to information and start date. ASW, Kera was informed by Dr. Morales that he will be discharging the patient back home and to arrange transportation. Patient is on 6 Liter of Oxygen and is not able to ambulate requiring gurney transport back home. Patient's is unable to provide patient for transportation and is concerned about the patient returning back home. ASW informed that is patient worsens to return to the ED. ASW obtained an [facility] for [facility] from screw machine set up operator Светлана. Transportation arranged for 1200.
--- NOTE | 2024-08-08 10:59 | PC.CC ---
ASW informed patient and patient's Christelle that transportation was arranged for 12:00pm.
== END 2024-08-08 12:12 | disposition home or self-care (01) ==
PROVIDERS: Emergency Medicine; Student in an Organized Health Care Education/Training Program; Emergency Provider Family Medicine; PCP Internal Medicine
DX: G47.33 Obstructive sleep apnea (adult) (pediatric) (principal); I45.10 Unspecified right bundle-branch block; I13.0 Hypertensive heart and chronic kidney disease with heart failure and stage 1 through stage 4 chronic kidney disease, or unspecified chronic kidney disease; E11.22 Type 2 diabetes mellitus with diabetic chronic kidney disease; Z79.84 Long term (current) use of oral hypoglycemic drugs; E78.00 Pure hypercholesterolemia, unspecified; I50.30 Unspecified diastolic (congestive) heart failure; I42.9 Cardiomyopathy, unspecified; N18.9 Chronic kidney disease, unspecified
CPT/HCPCS: 36415; 71045; 80053; 80307; 81001; 83615; 83735; 83880; 84484; 85025; 85610; 85730; 93005; 99283

== ENCOUNTER 2024-08-14 10:51 | Inpatient (IN) | payer MEDICARE, BC, SELFPAY ==
[2024-08-14] VITALS (8 sets, daily range): BP systolic 141–197; BP diastolic 74–103; PULSE 62–74; RESP 18–24; TEMP 36.6; O2SAT 95–98; BMI 40.6
--- NOTE | 2024-08-14 11:08 | EKG_ITS ---
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1945 Requested By: ED Temporary Provider Order Number: [id number] Reading MD: ED Temporary Provider Measurements Intervals [place] Rate: 73 P: 59 [place]: 196 QRS: 143 QRSD: 132 T: 48 QT: 403 QTc: 445 Interpretive Statements SINUS RHYTHM RIGHT AXIS DEVIATION [QRS AXIS > 100] RIGHT BUNDLE BRANCH BLOCK [120+ ms QRS DURATION, UPRIGHT V1, 40+ ms S IN I/aVL/V4/V5/V6] Compared to ECG 08/07/2024 22:25:33 Right-axis deviation now present Right bundle-branch block now present Indeterminate axis no longer present Incomplete right bundle-branch block no longer present Myocardial infarct finding no longer present /store/S0/[id number]/ecg/[id number].pdf
--- NOTE | 2024-08-14 11:53 | EDNOTE_ITS ---
ED General RME/HPI General Chief complaint: Weakness Stated complaint: WEAKNESS Time Seen by Provider: 08/14/24 11:24 Arrival date/time: 08/14/24 10:51 RME / HPI RME / HPI narrative: DR. VORA MAIN ED EVALUATION: 78 year old male presents to the Emergency Department [facility] with complaints of generalized weakness, inability to ambulate, and left leg lower leg pain. Patient states he last saw Dr. Gueavra a week ago and today over the phone was told to come in for admission to be placed in a prison. PMHx: Lumbar spine surgery 20 years ago. Diabetes, CKD, hypertension, prostate cancer with ? Mets, HFpEF on 80 mg of Lasix. Social Hx: No tobacco, alcohol, or substance use. Related Data Home Medications ?Medication ?Instructions ?Recorded ?Confirmed aspirin 81 mg capsule 81 mg PO QDAY 12/15/2208/07 atorvastatin 20 mg tablet 20 mg PO QDAY 12/15/2208/07 dapagliflozin propanediol 10 mg 10 mg PO QDAY 12/15/22 08/07/24 tablet (Farxiga) finerenone 20 mg tablet (Kerendia) 20 mg PO .qod 12/1508/07/24 furosemide 40 mg tablet (Lasix) 80 mg PO QAM 12/15/22 08/07/24 hydralazine 50 mg tablet 50 mg PO TID 12/15/22 pregabalin 50 mg capsule 50 mg PO QDAY 12/15/2208/07 sildenafil 25 mg tablet 25 mg PO QDAY PRN Lung funct ion 12/15/22 08/07/24 sitagliptin phosphate 100 mg 100 mg PO QDAY 12/15/22 0 08/07/24 tablet (Januvia) carvedilol 6.25 mg tablet 40 mg PO BID 08/07/24 tirzepatide 10 mg/0.5 mL 10 mg subcut 08/07/24 subcutaneous pen injector (Dre) Allergies Allergy/AdvReac Type Severity Reaction Status Date / Time No Known Allergies Allergy Verified 08/07/24 22:27 Review of Systems Review of Systems Systems Reviewed: All systems reviewed, normal except as documented Past Medical History Past Medical History NEUROLOGIC: Positive Neurological Disorders, Dementia and Brain Tumor CARDIAC: Positive Cardiac Disorders, Hypercholesterolemia, Congestive Heart Failure, Cardiomyopathy, Edema, Cellulitis, Deep Vein Thrombosis and Hypertension RESPIRATORY: Positive Bronchitis, Pneumonia, Tuberculosis and Sleep Apnea GASTROINTESTINAL: Positive Ulcer, Hemorrhoids and Obesity GENITOURINARY: Positive Genitourinary Disorders, Renal Disease, Prostate Cancer and Benign Prostatic Hyperplasia MUSCULOSKELETAL: Positive Musculoskeletal Disorders, Scoliosis and Carpal Tunnel Syndrome ENT: Positive Cataracts ENDOCRINE: Positive Endocrine Disorders and Diabetes Mellitus Type 2 PSYCHO/SOCIAL: Positive Post Traumatic Stress Disorder OTHER HISTORY: Positive Hospitalization, Autoimmune Disease, Falls, Radiation Therapy, Chicken Pox, Mumps and Prostate Cancer Family History FAMILY HISTORY: Positive Family Cardiac Disorders and Family Surgery Social History SMOKING STATUS: Never smoker SUBSTANCE USE: does not use ED Exam Narrative Physical exam: Physical Exam: General: The vital signs were reviewed. The patient is non-toxic, in no apparent distress and appears healthy with a patent airway, no respiratory distress and has no apparent circulatory problems. Head & Scalp: Normocephalic, atraumatic. Face: Appears normal and is without lesions, deformity. Ears: Left external pinna appears normal. Right external pinna appears normal. Eyes: The sclera is anicteric. No obvious photophobia. The Left and Right Orbit/Lid/Conjunctiva appears normal without swelling, discoloration or injection. Nose: The nose is without deformity, discharge or tenderness; Throat: Appears normal. The mucous membranes are pink and moist without exudates, redness or mass seen. The tongue appears normal. Neck: The neck is supple and no apparent mass or adenopathy. Chest: The chest wall is normal in size and symmetry and has no chest wall tenderness or crepitus. The patient displays normal ventilator effort without retractions, accessory muscle use and has adequate air movement bilaterally with no wheezes and no rales. Cardiovascular: Regular rate and rhythm; No murmurs, rubs, or gallops; Gastrointestinal: The abdomen appears normal. No obvious hernias or mass. The abdomen is soft and benign, non-distended, with no pain, no guarding and no rebound tenderness. Bowel sounds are present and normal sounding. No CVA tenderness. Genitourinary: Back/Spine: Tenderness over low back Extremities/Musculoskeletal/lymphatic: The bilateral upper and lower extremities are warm. There is no evidence of arterial insufficiency. There is no evidence of venous insufficiency/edema. The patient spontaneously moves bilateral upper and lower extremities with no pain and no limitation of movement. There is no apparent, injury or trauma. Skin: The skin is warm, dry and intact. No rashes. No petechia. No purpura. No abnormal bruising. The color is appropriate with no cyanosis. Mental status/Psychiatric: Mental status is appropriate for age. The patient has no apparent delusions, visual hallucinations, no apparent audible hallucinations. The patient has no apparent suicidal thoughts/ideation and no apparent homicidal thoughts/ideation. Neurological: The patient is awake, alert, interactive, cordial, cooperative and is oriented to name and situation. The patient follows commands and answers historical question with no impairment. There is no visual disturbance apparent. The pupils are equal and reactive bilaterally with normal eye movements and no diplopia The bilateral upper and lower extremities have normal strength, normal range of motion and normal functioning. The gait, station and balance not tested as patient is unable to stand and walk due to intractable back pain Course Quality Measures none Orders Category Date Time Status Admit to Inpatient Status Routine Admission 08/14/24 13:18 Active Patient Condition Routine Admission 08/14/24 13:18 Ordered Continuous Pulse Oximetry NOW Care 08/14/24 13:22 Active EKG (ED ONLY) *Do not use* NOW Care 08/14/24 11:08 Completed Miscellaneous Nursing Order NOW Care 08/14/24 13:33 Active Notify provider NEEDED Care 08/14/24 13:18 Active Strict Intake and Output Routine Care 08/14/24 13:22 Ordered Consult to Cardiology Routine Cons 08/14/24 13:32 Ordered Diet Low Sodium (2gm) Diet 08/14/24 Dinner Active EKG (ED Only) Stat Exams 08/14/24 11:08 Draft CBC AM DRAW Lab 08/15/24 05:00 Ordered CBC AM DRAW Lab 08/16/24 05:00 Ordered CBC AM DRAW Lab 08/17/24 05:00 Ordered CBC Stat Lab 08/14/24 12:12 Completed CMP [Comprehensive Metabolic Panel] Stat Lab 08/14/24 12:12 Completed Comprehensive Metabolic Panel AM DRAW Lab 08/15/24 05:00 Ordered Comprehensive Metabolic Panel AM DRAW Lab 08/16/24 05:00 Ordered Comprehensive Metabolic Panel AM DRAW Lab 08/17/24 05:00 Ordered Magnesium AM DRAW Lab 08/15/24 05:00 Ordered Phosphorous AM DRAW Lab 08/15/24 05:00 Ordered Acetaminophen Tab [Tylenol Tab] Med 08/14/24 13:22 Active 650 mg PO Q6H PRN HYDROcodone*/APAP 5/325 [Pablo 5/325] Med 08/14/24 12:37 Discontinued 1 tab PO X1 ONE HYDROmorphone INJ [Dilaudid Inj] Med 08/14/24 12:22 Discontinued 1 mg IVP X1 ONE Heparin Inj Med 08/14/24 14:00 Active 5,000 unit SC Q8HR Morphine Inj Med 08/14/24 13:27 Active 2 mg IVP Q4HR PRN Ondansetron Inj [Zofran Inj] Med 08/14/24 13:22 Active 4 mg IVP Q6H PRN Ondansetron Inj [Zofran Inj] Med 08/14/24 12:22 Discontinued 4 mg IVP X1 ONE Code Status Routine Oth 08/14/24 13:17 Ordered Oxygen Delivery PRN RT 08/14/24 13:22 Active Vital Signs Vital signs: Vital Signs Temperature 97.9 F 08/14/24 10:54 Pulse Rate 72 08/14/24 10:54 Respiratory Rate 20 08/14/24 10:54 Blood Pressure 179/89 H 08/14/24 10:54 Pulse Oximetry (%) 97 08/14/24 10:54 Oxygen Delivery Method Nasal Cannula 08/14/24 10:54 Oxygen Flow Rate 6 08/14/24 10:54 Discharge Plan Plan Patient Disposition: Admit Acute Care w/in Hospital Discharge Disposition comment: Dr Guevara intractable pain Problem List Clinical Impression: Intractable back pain, Diabetes, Unable to ambulate, Chronic renal insufficiency MDM Narrative MDM hospital course: Patient is sent here by Dr. Aguero as he is been to this emergency department 3 times prior to today in the past couple weeks for intractable back pain and CT and MRIs that reveal bulging disc. He saw his neurosurgeon and the PA advised him that he is not a surgical candidate because he is unable to care for himself and the is unable to get him up and his pain is not controlled he is back for reevaluation. I contacted Dr. Aguero the patient's primary care and she wants admit the patient for intractable pain. Note the recent labs were done which were essentially negative. At this time patient will be admitted. Note I reviewed the CTs and MRIs and shows the pathology as we mentioned above above the level of the previous surgery I spoke with patient's primary care doctor Dr. Aguero and she wants to admit the patient for intractable pain. Note there are some chronic renal insufficiency. I, Ronit Chan, am scribing for and in the presence of Dr. Vora. Clinical Information Provided by patient and EMS Medical Records Reviewed [facility] and EMS Meds/Rx Considered, not Ordered None Labs/Rad/Tests considered, not Ordered None Chronic Illness/Social Conditions Add or document further as needed: Lumbar spine surgery 20 years ago. Diabetes, CKD, hypertension, prostate cancer with ? Mets, HFpEF on 80 mg of Lasix. EKG EKG Interpretation narrative: My interpretation: EKG performed at 1109 hours, sinus rhythm, rate 73, no STEMI Lab Interpretation Labs: see narrative above Imaging Imaging interpretation: none Medication Administration(s) Medication Administration History Acetaminophen (Acetaminophen 325 Mg Tablet) 650 mg PO Q6H PRN PRN Reason: Fever >100.3 or pain 1-3 Stop: 09/13/24 13:21 Dextrose (Dextrose 50%-Water Inj 50 Ml Syringe) 25 ml IV Q15MIN PRN PRN Reason: BG 50-70 responsive npo pt Stop: 09/13/24 15:55 Dextrose (Dextrose 50%-Water Inj 50 Ml Syringe) 50 ml IV Q15MIN PRN PRN Reason: BG <50 OR BG <70 & pt unresponsive Stop: 09/13/24 15:55 Glucagon (Glucagon Inj 1 Mg Vial) 1 mg IM Q15MIN PRN PRN Reason: BG <70, and no IV access Heparin Sodium (Porcine) (Heparin Sod Inj 5000 Unit/Ml Vial) 5,000 unit SC Q8HR [facility] Stop: 08/28/24 13:59 Insulin Human Lispro (Insulin Lispro (Admelog) 1 Unit/0.01 Ml Unit) 0 unit SC [facility]; Protocol Stop: 09/13/24 16:59 Morphine Sulfate (Morphine Sulf Inj 10 Mg/Ml Vial) 2 mg IVP Q4HR PRN PRN Reason: PAIN SCALE 7-10 (Severe Stop: 08/19/24 13:26 Ondansetron HCl (Ondansetron Inj 2 Mg/Ml Inj 2 Ml) 4 mg IVP Q6H PRN; Protocol PRN Reason: NAUSEA OR VOMITING Stop: 09/13/24 13:21 Discontinued Medications Hydrocodone Bitart/Acetaminophen (Hydrocodone/Apap 5/325 Tablet) 1 tab PO X1 ONE Stop: 08/14/24 12:38 Last Admin: 08/14/24 13:17 Dose: 1 tab Documented By: SHANNON Hydromorphone HCl (Hydromorphone Inj 2 Mg/Ml Vial) 1 mg IVP X1 ONE Stop: 08/14/24 12:23 Last Admin: 08/14/24 12:30 Dose: Not Given Documented By: NATALIIA Non-Admin Reason: Cancelled by Provider Ondansetron HCl (Ondansetron Inj 2 Mg/Ml Inj 2 Ml) 4 mg IVP X1 ONE; Protocol Stop: 08/14/24 12:23 Last Admin: 08/14/24 13:14 Dose: Not Given Documented By: SHANNON Non-Admin Reason: Change of Condition Consultations/Discussions re: Management Consult #1: Date/time: 08/14/24 12:26 pm Physician, specialty, service, details: Discussed test HPI, PMHx, lab, radiology results and/or management with Dr. Meyers ri. Wants to admit for intractable pain. Diagnosis Differential diagnosis: intractable pain, gait problems, DVT Most likely dx, and/or detailed dx discussion: Intractable back pain Diabetes Unable to ambulate Dispositon Disposition: Admit
--- NOTE | 2024-08-14 12:20 | PC.NURSE ---
Patient states pain 10/10. Informed ER provider and received verbal order from Dr. Vora for 1 mg Dilaudid IV and 4 mg Zofran IV
[2024-08-14 13:01] LABS: Basophils # (Auto) 0.1 Thou/mm3 (0.0-0.2); Basophils % (Auto) 1 % (0-2.5); Eosinophils # (Auto) 0.4 Thou/mm3 (0.0-0.5); Eosinophils % (Auto) 5 % (0-10); Hematocrit 44.3 % (41.0-53.0); Hemoglobin 15.9 g/dL (13.5-16.0); Immature Granulocytes Auto 0.02 Thou/mm3 (0.00-0.00); Lymphocytes # (Auto) 0.4 Thou/mm3 (1.0-4.8); Lymphocytes % (Auto) 6 % (10-50); Mean Corpuscular HGB Conc 35.9 g/dl (31.0-37.0); Mean Corpuscular Hemoglobin 30.2 pg (25.0-35.0); Mean Corpuscular Volume 84 fL (80-100); Monocytes # (Auto) 0.6 Thou/mm3 (0.0-0.8); Monocytes % (Auto) 9 % (0-12); Neutrophils # (Auto) 5.3 Thou/mm3 (1.8-7.7); Neutrophils % (Auto) 78 % (37-80); Nucleated Red Blood Cell # 0.00 Thou/mm3 (0.00-0.00); Nucleated Red Blood Cell % 0 /100 WBC (0); Platelet Count 186 Thou/mm3 (140-440); RDW Standard Deviation 49.9 fL (35.1-43.9); Red Blood Count 5.27 Miln/mm3 (4.50-5.90); White Blood Count 6.8 Thou/mm3 (3.8-10.6)
[2024-08-14] MEDS: HYDROcodone/APAP 5/325 TABLET 1 TAB PO (13:17)
[2024-08-14 13:30] LABS: Alanine Aminotransferase < 7 U/L (10-49); Albumin, Serum 4.1 gm/dL (3.4-4.8); Albumin/Globulin Ratio 1.4 (1.2-2.2); Alkaline Phosphatase 87 U/L (46-116); Anion Gap 8 (7-16); Aspartate Amino Transferase < 10 U/L (0-34); BUN/Creatinine Ratio 17 Ratio (12-20); Bilirubin,Total 0.7 mg/dL (0.3-1.2); Blood Urea Nitrogen 36 mg/dL (9-23); Calcium 8.9 mg/dL (8.3-10.6); Calcium (Corrected) 8.9 mg/dL (8.5-10.1); Carbon Dioxide 34.1 mMol/L (20.0-31.0); Chloride 97 mMol/L (98-107); Creatinine (Component) 2.1 mg/dL (0.6-1.3); Estimated Creatinine Clearance 41.4 mL/min (>60); Globulin 2.9 gm/dL (2.3-3.5); Glucose 159 mg/dL (74-106); Osmolality,Calculated 288 (275-295); Potassium 3.9 mMol/L (3.4-5.1); Sodium 139 mMol/L (136-145); Total Protein 7.0 gm/dL (5.7-8.2); eGFR 32 See Note
--- NOTE | 2024-08-14 13:36 | ESHP_ITS ---
<Statement entered by Erica Antoine MD - 08/14/24 16:20> Jimmy Trujillo is a 78 year old male with PMH of hypertension, hyperlipidemia, type 2 diabetes mellitus, CKD stage III, NICOLAS on 5L O2 at home, and HFpEF (EF 55- 60% in 2022) presenting to ED 08/14/24. Per , his mobility is declining due to severe back pain and LE pain. Family is requesting SNF placement for additional PT until any surgical intervention can be done. Patient follows cardiology Dr. Streeter outpatient with most recent visit in May. No changes in management at that time. At bedside he was saturating 96% on 5-6L NC. Admit for acute CHF exacerbation with diuresis, INOs, CPAP HS, oxygen PRN. The patient's management plan was discussed with my attending physician Dr. Guevara. Erica Antoine, PGY-2 Documentation for date of: 08/14/24 HPI History of Present Illness Chief complaint: SOB, CHF Intractable back pain, falls History of present illness: Chief Complaint: Intractable ack and leg pain, weakness HPI: Jimmy Trujillo is a 78 year old male with a past medical hx including multiple comorbidities including hypertension, hyperlipidemia, type 2 diabetes mellitus, obesity, CHF, NICOLAS, CKD stage III who arrived in the emergency department with his with the complaint of back pain (hx of slipped discs) that has been worsening over the last 3 months (for the current episode) along with associated leg pain and poor mobility. Patient states that he sees an orthopedic doctor in [place]. The patient states that last week he fell and was unable to walk with his walker (baseline) ever since then. Without the walker before the fall, the patient's gait is limited. Patient also has extensive cardiac history with CHF/cardiomyopathy. His states that he has a Cardiac history and sees Dr. Streeter (last seen in May and next appt with him Next Monday08/19/2024). States he uses CPAP with 5L O2 every night. Patient came to the emergency department twice and this is his third visit to the emergency department. Past Medical History: Diabetes, Intractable back pain, Weakness, NICOLAS, CHF, HTN Surgical Hx: None noted Medications: Januvia 100 mg, Farxiga 10 mg, Kerendia 20 mg every other day, Mounjaro 10 mg Fer AM, Furosdemide 80 mg, Hydralazine 50 mg 3x/day, Carvedilol 40 mg am/pm, pregabalin 50 mg x2 qhs, sildenafil 20 mg, atorvastatin 20 mg, aspirin 81 mg, vitamin d3 2000 iu, vitamin b12 1000 mg. 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 Labs notable for BUN 36, Cr 2.1 (appears to be about baseline), glucose 159; EKG sinus rhythm. REVIEW OF SYSTEMS: CONST: Negative for fever, body aches and chills. HENT: Negative for neck pain/stiffness, headache, congestion, sore throat, swelling. EYES: Negative for discharge/pain or vision changes. RESP: Negative for cough/hemoptysis and shortness of breath. CV: Negative chest pain, difficulty breathing, palpitations. ABD: Negative pain, nausea, vomiting. : Negative increase frequency, dysuria, blood in urine or stool. MUSC: Endorses Back and Leg pain. SKIN: Negative rash, lesions/sores. NEURO: Endorses diffuse lower extremity mild weakness, Negative headache, dizziness. Past Medical History Past Medical History NEUROLOGIC: Positive Neurological Disorders, Dementia and Brain Tumor CARDIAC: Positive Cardiac Disorders, Hypercholesterolemia, Congestive Heart Failure, Cardiomyopathy, Edema, Cellulitis, Deep Vein Thrombosis and Hypertension RESPIRATORY: Positive Bronchitis, Pneumonia, Tuberculosis and Sleep Apnea GASTROINTESTINAL: Positive Ulcer, Hemorrhoids and Obesity GENITOURINARY: Positive Genitourinary Disorders, Renal Disease, Prostate Cancer and Benign Prostatic Hyperplasia MUSCULOSKELETAL: Positive Musculoskeletal Disorders, Scoliosis and Carpal Tunnel Syndrome ENT: Positive Cataracts ENDOCRINE: Positive Endocrine Disorders and Diabetes Mellitus Type 2 PSYCHO/SOCIAL: Positive Post Traumatic Stress Disorder OTHER HISTORY: Positive Hospitalization, Autoimmune Disease, Falls, Radiation Therapy, Chicken Pox, Mumps and Prostate Cancer Family History FAMILY HISTORY: Positive Family Cardiac Disorders and Family Surgery Social History SMOKING STATUS: Never smoker SUBSTANCE USE: does not use Exam Vital Signs Temp Pulse Resp BP Pulse Ox O2 Del Method O2 Flow Rate 97.9 F 72 24 H 151/100 H 98 Nasal Cannula 6 08/14/24 10:54 08/14/24 11:33 08/14/24 11:33 08/14/24 11:33 08/14/24 11:33 08/14/24 11:33 08/14/24 11:33 Narrative Exam Gen: A&Ox3, NAD, resting in bed. Obese gentleman by BMI seen in the ER. HEENT: NCAT, EOMI, not icteric. Moist mucous membranes. Neck: Supple, full range of motion, no observable masses, No meningeal sign. Lungs: On 6L NC, No Respiratory distress. CV: RRR, 2+ edema in the lower extremities Abdomen: Soft, nondistended, No rebound tenderness. MSK: No joint swelling, no redness. Skin: No rashes, petechiae, lesions. Stasis dermatitis of the lower extremities Neuro: No focal neuro deficits; diffuse mild weakness in lower extremities. Psych: Appropriate for situation. Results: Labs 08/15/24 05:12 08/15/24 05:12 Labs: Short CBC 08/14/24 Range/Units 12:12 WBC 6.8 (3.8-10.6) Thou/mm3 Hgb 15.9 (13.5-16.0) g/dL Hct 44.3 (41.0-53.0) % Plt Count 186 (140-440) Thou/mm3 BMP 08/14/24 12:12 Sodium 139 Potassium 3.9 Chloride 97 L Carbon Dioxide 34.1 H BUN 36 H Creatinine 2.1 H Glucose 159 H Calcium 8.9 Liver Function 08/14/24 Range/Units 12:12 Total Bilirubin 0.7 (0.3-1.2) mg/dL AST < 10 (0-34) U/L ALT < 7 L (10-49) U/L Alkaline Phosphatase 87 (46-116) U/L Albumin 4.1 (3.4-4.8) gm/dL Quality Measures Quality Measures VTE prophylaxis Advance care planning discussed with:: patient and spouse Medications Home Medications and Allergies Home Medications ?Medication ?Instructions ?Recorded ?Confirmed ?Type aspirin 81 mg capsule 81 mg PO .evening 12/15/22 0 08/15/24 History atorvastatin 20 mg tablet 20 mg PO HS 12/15/22 5 History dapagliflozin propanediol 10 mg 10 mg PO QDAY 12/15/22 08/15/24 History tablet (Farxiga) finerenone 20 mg tablet (Kerendia) 20 mg PO .qod 12/1508/15/24 History furosemide 40 mg tablet (Lasix) 80 mg PO QAM 12/15/22 08/15/24 History hydralazine 50 mg tablet 50 mg PO TID 12/15/22 History pregabalin 50 mg capsule 100 mg PO .evening 12/15/22 08/15/24 History sildenafil 25 mg tablet 20 mg PO .evening PRN Lung f unction 12/15/22 08/15/24 History sitagliptin phosphate 100 mg 100 mg PO QDAY 12/15/22 0 08/15/24 History tablet (Januvia) carvedilol 6.25 mg tablet 6.25 mg PO BID 08/07/2408/06 History tirzepatide 10 mg/0.5 mL 10 mg subcut QWEEK 08/07/24 08/15/24 History subcutaneous pen injector (Dre) cholecalciferol (vitamin D3) 25 2,000 unit PO QDAY 11/3008/15/24 History mcg (1,000 unit) tablet (Vitamin D3) Allergies Allergy/AdvReac Type Severity Reaction Status Date / Time No Known Allergies Allergy Verified 08/07/24 22:27 Visit Medications Acetaminophen (Acetaminophen 325 Mg Tablet) 650 mg PO Q6H PRN PRN Reason: Fever >100.3 or pain Stop: 09/13/24 13:21 Heparin Sodium (Porcine) (Heparin Sod Inj 5000 Unit/Ml Vial) 5,000 unit SC Q8HR [facility]OD Stop: 08/28/24 13:59 Morphine Sulfate (Morphine Sulf Inj 10 Mg/Ml Vial) 2 mg IVP Q4HR PRN PRN Reason: PAIN SCALE 7-10 (Severe Stop: 08/19/24 13:26 Ondansetron HCl (Ondansetron Inj 2 Mg/Ml Inj 2 Ml) 4 mg IVP Q6H PRN; Protocol PRN Reason: NAUSEA OR VOMITING Stop: 09/13/24 13:21 Discontinued Medications Hydrocodone Bitart/Acetaminophen (Hydrocodone/Apap 5/325 Tablet) 1 tab PO X1 ONE Stop: 08/14/24 12:38 Last Admin: 08/14/24 13:17 Dose: 1 tab Hydromorphone HCl (Hydromorphone Inj 2 Mg/Ml Vial) 1 mg IVP X1 ONE Stop: 08/14/24 12:23 Last Admin: 08/14/24 12:30 Dose: Not Given Ondansetron HCl (Ondansetron Inj 2 Mg/Ml Inj 2 Ml) 4 mg IVP X1 ONE; Protocol Stop: 08/14/24 12:23 Last Admin: 08/14/24 13:14 Dose: Not Given Assessment & Plan Plan In summary, Jimmy Trujillo is 76-year-old male with multiple comorbidities including hypertension, hyperlipidemia, type 2 diabetes mellitus, CKD stage III who presented to the ED with a chief complaint of intractable back pain, associated leg pain and immobility. #CHF//hypoxic respiratory failure Patient with congestive heart failure. Continue with furosemide 80 mg, carvedilol 40 mg. - monitor I/Os, clinical status Cardiology was consulted #Intractable Back pain #Leg pain #Immobility #Weakness Patient has chronic back pain that has been worsening over the last 3 months. Patient's baseline ambulation includes using a walker. Last week, patient fell and has not been able to use a walker and has been bed bound, unable to ambulate since due to feeling weak as well. Failed outpatient p.o. pain management. - Ordered acetaminophen 650 mg q6h PRN (ckd), morphine IV for severe pain. - Monitor/Address pain appropriately. #CKD Stage III - home meds: Furosdemide 80 mg, Farxiga 10 mg, Kerendia 20 mg every other day, Mounjaro 10 mg Monday AM. - Pharmacy renal dosing - Monitoring/correcting/repleting electrolytes as needed - Monitoring I/Os #Type 2 Diabetes - home meds: (see above under CKD problem) - A1c 6.0 (11/2023) - SSI, glucose checks ACHS #PHTN #NICOLAS Patient uses CPAP with 5L at night - pain/nausea mgmt PRN - CPAP HS, O2 support PRN, keep O2 sats 88-92%. #HTN Home meds include hydralazine 50 mg, carvedilol 40 mg. #HLD Home meds include atorvastatin 20 mg. Health Maintenance Diet: Low Sodium/carb consist GI: No prophylaxis DVT: Heparin SubQ Espinal: No Dispo: Tele Code: DNR/DNI Patient was seen, plan was discussed with attending Dr. Paola Vivar MD PGY-1 Internal Medicine Attending Provider Attestation/Addendum Patient seen and examined with resident physician Dr. Vivar. Note reviewed, agree with findings and recommendations with few changes made. Patient has hypoxic respiratory failure secondary to CHF /NICOLAS-continue with diuretics patient apparently having intractable back pain for the last 3 weeks with frequent falls and unable to take care of him at home. She brought him to the ED twice. Imaging showed patient has significant disc bulge and stenosis. He was supposed to get shots and other treatment options at [place] family intervention specialist Not a surgical candidate. Will admit him for pain management, physical therapy and disposition to rehab. Plan of care discussed with at bedside.
[2024-08-14] MEDS: HEPARIN SOD INJ 5000 UNIT/ML VIAL SC (16:51)
--- NOTE | 2024-08-14 21:24 | PD.RESCONSUL ---
HPI Data of Consult Requesting Physician: Ken Guevara MD Admitting Provider: Ken Guevara MD Attending Provider: Ken Guevara MD Primary Care Provider: Ken Guevara MD Consult Narrative History of present illness: The patient is a 78-year-old gentleman with past medical history significant for HFpEF, initially severe PAH with RSVP of 100 mmHg by right heart cath but currently stable, PAD, NICOLAS, DM type II, hyperlipidemia, hypertension, CKD, obesity, BPH and lumbar disc bulge presented to ED on 08/14/2024 with chief complaint of worsening of back pain leading to ground-level fall. After the fall, he has not been able to walk with his walker. He has been seeing an orthopedic provider at [place], he will be following up next Monday. He had recently presented to ED on 08/08/2024, and was discharged after social service set up at home, and further being managed for generalized weakness. However, his weakness continued to worsen along with his back pain. He was recommended by his in the ED. He was saturating 98% on 5 L NC, that is close to his baseline. He denied any headache, chest pain, palpitations, leg swelling, orthopnea or PND, or severe SOB. He also denied any urinary symptoms, fever or chills, nausea or vomiting. During my evaluation in the ED, His vitals were 194/97, pulse 62, saturating 95% on 5 L NC. Labs revealed stable white count of 6.8, hemoglobin 15.9, potassium 3.9, bicarb 34.1, creatinine 2.1, BUN 36, GFR 32, EKG revealed sinus rhythm with RBBB and right axis deviation. PMH: As mentioned above SHX: Back surgery, cardiac cath, Family history: Father and mother had hypertension Social history: Lives with at [place], denies any tobacco use, alcohol use or any illicit drug use Allergies: No known allergies Medications: Furosemide 80 Mg daily, aspirin 81 Mg daily, atorvastatin 20 Mg daily, pregabalin 50 Mg twice daily, Januvia 100 Mg daily, Farxiga 10 Mg daily, sildenafil 25 Mg daily, carvedilol 25 Mg twice daily. Cardiology consultation was done for further management of HFpEF, PAH, hyperlipidemia, and PAD management. cc:: cc: Ken Guevara MD Review of Systems Review of Systems Systems Reviewed: All systems reviewed, normal except as documented Exam Vital Signs Temp Pulse Resp BP Pulse Ox O2 Del Method O2 Flow Rate 97.8 F 62 20 141/79 H 95 Nasal Cannula 5 08/14/24 20:09 08/14/24 20:09 08/14/24 20:09 08/14/24 21:01 08/14/24 20:09 08/14/24 18:18 08/14/24 18:18 Narrative Exam General: No acute distress, Alert and Oriented x 3 HEENT: Moist mucous membranes, oropharynx clear Neck: Supple, No masses, No JVD CVS: S1S2 Regular rate and rhythm, No murmurs, rubs or gallops Lungs: Clear to auscultation with no accessory use, no wheeze no rhonchi, saturating 96% on 5 L NC. Abd: Soft, NT/ND, +BS, no organomegaly Back: Mild tenderness over L3-L4 region Ext: No edema, warm and well perfused Skin: No rash Psych: Appropriate mood and affect Results Labs 08/15/24 05:12 08/15/24 05:12 Labs: Short CBC 08/14/24 Range/Units 12:12 WBC 6.8 (3.8-10.6) Thou/mm3 Hgb 15.9 (13.5-16.0) g/dL Hct 44.3 (41.0-53.0) % Plt Count 186 (140-440) Thou/mm3 BMP 08/14/24 12:12 Sodium 139 Potassium 3.9 Chloride 97 L Carbon Dioxide 34.1 H BUN 36 H Creatinine 2.1 H Glucose 159 H Calcium 8.9 Liver Function 08/14/24 Range/Units 12:12 Total Bilirubin 0.7 (0.3-1.2) mg/dL AST < 10 (0-34) U/L ALT < 7 L (10-49) U/L Alkaline Phosphatase 87 (46-116) U/L Albumin 4.1 (3.4-4.8) gm/dL Quality Measures Quality Measures VTE prophylaxis Advance care planning discussed with:: patient and spouse Medications Home Medications and Allergies Home Medications ?Medication ?Instructions ?Recorded ?Confirmed ?Type aspirin 81 mg capsule 81 mg PO .evening 12/15/22 08/15/24 History atorvastatin 20 mg tablet 20 mg PO HS 12/15/22 08/15/24 History dapagliflozin propanediol 10 mg 10 mg PO QDAY 12/15/22 08/15/24 History tablet (Farxiga) finerenone 20 mg tablet (Kerendia) 20 mg PO .qod 12/15/22 08/15/24 History furosemide 40 mg tablet (Lasix) 80 mg PO QAM 12/15/22 08/15/24 History hydralazine 50 mg tablet 50 mg PO TID 12/15/22 08/15/24 History pregabalin 50 mg capsule 100 mg PO .evening 12/15/22 08/15/24 History sildenafil 25 mg tablet 20 mg PO .evening PRN Lung function 12/15/22 08/15/24 History sitagliptin phosphate 100 mg 100 mg PO QDAY 12/15/22 08/15/24 History tablet (Januvia) carvedilol 6.25 mg tablet 6.25 mg PO BID 08/07/24 08/15/24 History tirzepatide 10 mg/0.5 mL 10 mg subcut QWEEK 08/07/24 08/15/24 History subcutaneous pen injector (Dre) cholecalciferol (vitamin D3) 25 2,000 unit PO QDAY 08/15/24 08/15/24 History mcg (1,000 unit) tablet (Vitamin D3) Allergies Allergy/AdvReac Type Severity Reaction Status Date / Time No Known Allergies Allergy Verified 08/07/24 22:27 Visit Medications Acetaminophen (Acetaminophen 325 Mg Tablet) 650 mg PO Q6H PRN PRN Reason: Fever >100.3 or pain 1-3 Stop: 09/13/24 13:21 Dextrose (Dextrose 50%-Water Inj 50 Ml Syringe) 25 ml IV Q15MIN PRN PRN Reason: BG 50-70 responsive npo pt Stop: 09/13/24 15:55 Dextrose (Dextrose 50%-Water Inj 50 Ml Syringe) 50 ml IV Q15MIN PRN PRN Reason: BG <50 OR BG <70 & pt unresponsive Stop: 09/13/24 15:55 Glucagon (Glucagon Inj 1 Mg Vial) 1 mg IM Q15MIN PRN PRN Reason: BG <70, and no IV access Heparin Sodium (Porcine) (Heparin Sod Inj 5000 Unit/Ml Vial) 5,000 unit SC Q8HR ROD Stop: 08/28/24 13:59 Last Admin: 08/14/24 16:51 Dose: 5,000 unit Insulin Human Lispro (Insulin Lispro (Admelog) 1 Unit/0.01 Ml Unit) 0 unit SC [facility] ROD; Protocol Stop: 09/13/24 16:59 Last Admin: 08/14/24 16:52 Dose: Not Given Morphine Sulfate (Morphine Sulf Inj 10 Mg/Ml Vial) 2 mg IVP Q4HR PRN PRN Reason: PAIN SCALE 7-10 (Severe Stop: 08/19/24 13:26 Ondansetron HCl (Ondansetron Inj 2 Mg/Ml Inj 2 Ml) 4 mg IVP Q6H PRN; Protocol PRN Reason: NAUSEA OR VOMITING Stop: 09/13/24 13:21 Discontinued Medications Hydrocodone Bitart/Acetaminophen (Hydrocodone/Apap 5/325 Tablet) 1 tab PO X1 ONE Stop: 08/14/24 12:38 Last Admin: 08/14/24 13:17 Dose: 1 tab Hydromorphone HCl (Hydromorphone Inj 2 Mg/Ml Vial) 1 mg IVP X1 ONE Stop: 08/14/24 12:23 Last Admin: 08/14/24 12:30 Dose: Not Given Ondansetron HCl (Ondansetron Inj 2 Mg/Ml Inj 2 Ml) 4 mg IVP X1 ONE; Protocol Stop: 08/14/24 12:23 Last Admin: 08/14/24 13:14 Dose: Not Given Assessment & Plan Plan The patient is a 78-year-old gentleman with past medical history significant for HFpEF, initially severe PAH with RSVP of 100 mmHg by right heart cath currently stable, PAD, NICOLAS, DM type II, hyperlipidemia, hypertension, CKD stage III, obesity, BPH and lumbar disc bulge presented to ED on 08/14/2024 with chief complaint of worsening of back pain leading to ground-level fall is currently being managed for generalized weakness and back pain. Given the patient's extensive cardiac history, cardiology consultation was done. #HFpEF #Hypertension #Pulmonary arterial hypertension His above conditions are stable with current medications. Hypertensive likely secondary to severe intractable pain. - Continue with home antihypertensive, GDMT and furosemide 80 Mg daily. - Sildenafil 20 mg daily #Intractable back pain #Generalized weakness #Immobility Secondary to lumbar disc bulge as seen in previous lumbar MRI. - Pain management - Physical therapy #NICOLAS - Continue with CPAP at night along with 5 L oxygen #CKD stage III - Continue with Kerendia 20 Mg every other day, Mounjaro 10 Mg Monday morning, along with Farxiga 10 Mg. - Avoid nephrotoxic drugs - Renal dose medications #Hyperlipidemia #DM type II -Continue with atorvastatin 20 Mg at night - Maintain euglycemia with blood sugar range between 140-180. Thank you for consulting cardiology team. We appreciate for the opportunity to participate in this patient care. Cardiology team will continue to follow-up on this patient. The patient's management plan was discussed with my attending physician MD Wilman [place] MD, PGY3 Attending Provider Attestation/Addendum I have personally seen and examined the patient separately on the above date of service and discussed the plan of care with the resident. I reviewed the resident Dr. Wilman Corea consultation progress note and agree with the resident findings and plan in the note above and have also edited the documentation to reflect my findings and plan. A 78-year-old male with a past medical history of diastolic congestive heart failure, moderate to severe PAH [possibly combined group 2 and group 3], essential hypertension, type 2 diabetes mellitus, peripheral vascular disease status post ICT SUPPORT ENGINEER bilateral lower extremities, chronic kidney disease stage III, hyperlipidemia, morbid obesity, obstructive sleep apnea, history of back or lumbar spine surgery previously with chronic low back pain, prostate cancer with bony metastasis status post radiotherapy and chemotherapy presented to the emergency department on 08/14/2024 for further worsening of back pain status post fall. Patient was actually seen in the [facility] emergency department a week ago after which he was discharged home and patient continued to have severe back pain and was unable to maintain his balance and had fall at home and was brought in for further evaluation. As per the who was at the bedside patient has not had previous spine surgery and there is some issue with the previous hardware that has been placed and he was seen by orthopedic surgery in [place] but only by PA and recommended that would be a difficult surgery but would discuss with the orthopedic surgeon whose appointment is for next week Monday. Patient otherwise denies any kind of chest pain chest pressure orthopnea or PND or any significant leg swelling. Patient weight apparently has been stable at home along with the vitals. Patient does have shortness of breath at baseline and also has obstructive sleep apnea and uses CPAP at home. Now patient is on 2 L oxygen via nasal cannula during my examination. 1. Fall-appears more mechanical secondary to the back pain 2. Moderate to severe PAH 3. Diastolic CHF or HFpEF 4. Peripheral vascular disease status post ICT SUPPORT ENGINEER bilateral lower extremities 5. Acute on chronic low back pain with history of previous lumbar spine surgery with hardware Patient fall appears to be more mechanical secondary to the back pain and loss of balance but no evidence of any dizziness or syncope any other cardiac symptoms including any palpitations. He has no history of arrhythmias previously. Patient as noted in the HPI has been seen by orthopedic surgery PA and will have to see orthopedic surgical doctor next week Monday for further evaluation of his back pain and some issues with his hardware that was placed previously. Patient possibly might need surgery and patient was informed by me that he would need further ischemic evaluation including a left and right heart catheter. Patient was offered a left heart cardiac catheterization previously as his stress test was inconclusive given his morbid obesity and appeared to have mildly reduced uptake in the inferior segments but patient was not interested in having left heart cardiac catheterization he did not have chest pain or chest pressure and is undergoing treatments for his prostate cancer.. Ischemic evaluation was started because patient had PAD and all significant risk factors for CAD. Discussed with patient again today that he will need further ischemic evaluation with a cardiac catheterization if he is scheduled for an orthopedic surgery for his back pain. Regarding his of moderate to severe pulmonary hypertension patient has been started on sildenafil 20 mg once daily along with aggressive diuresis and is on Lasix 80 mg orally once a day and whenever he has fluid overload he was diuresed with additional Lasix as outpatient. His last admission for heart failure exacerbation was not 2022 when he was initially diagnosed with PAH. Since then patient has been doing well and had no admissions for any heart failure. Present admission is for the fall. Patient was also recommended [facility] for further continued monitoring of his PA pressures for which the patient refused. Recommend to continue sildenafil 20 mg once daily and diuresis with Lasix 80 mg once daily. Patient does have CKD stage III with a creatinine of around 2.0 and creatinine continues to be stable at the present point of time and hence continue the diuresis as noted above. He has peripheral arterial disease with multiple interventions and ICT SUPPORT ENGINEER performed both his lower extremities at [place] by his previous digital content manager and vascular team. Patient is on aspirin and Plavix along with high intensity statin which we recommend to continue at the present point of time. Blood pressure appears to be adequately controlled and recommend to continue the home regimen. Management of rest of the medical conditions as per primary team and other consultants. Thank you for the consult and allowing me to participate in the care of the patient. Cardiology will continue to follow. Librado Streeter M.D. Interventional Cardiology
--- NOTE | 2024-08-14 22:45 | PC.NURSE ---
No longer taking patient.
--- NOTE | 2024-08-14 23:03 | PC.NURSE ---
Report received from ED pt arrived via gurney to room 353, was able to shift self over to bed. Oriented pt to room and call light placed within reach.
[2024-08-15] VITALS (15 sets, daily range): BP systolic 125–149; BP diastolic 75–91; PULSE 68–97; RESP 15–20; TEMP 36.1–37.3; O2SAT 92–99
[2024-08-15] MEDS: HEPARIN SOD INJ 5000 UNIT/ML VIAL SC ×3 (00:14→21:06)
[2024-08-15] MEDS: MORPHINE SULF INJ 10 MG/ML VIAL 2 MG IVP ×2 (00:15→21:06)
--- NOTE | 2024-08-15 00:41 | PC.NURSE ---
Pt unable to recall home medications, stated does have list with her she will provide when visiting
[2024-08-15 05:59] LABS: Basophils # (Auto) 0.1 Thou/mm3 (0.0-0.2); Basophils % (Auto) 1 % (0-2.5); Eosinophils # (Auto) 0.3 Thou/mm3 (0.0-0.5); Eosinophils % (Auto) 6 % (0-10); Hematocrit 44.0 % (41.0-53.0); Hemoglobin 15.7 g/dL (13.5-16.0); Immature Granulocytes Auto 0.02 Thou/mm3 (0.00-0.00); Lymphocytes # (Auto) 0.6 Thou/mm3 (1.0-4.8); Lymphocytes % (Auto) 10 % (10-50); Mean Corpuscular HGB Conc 35.7 g/dl (31.0-37.0); Mean Corpuscular Hemoglobin 30.2 pg (25.0-35.0); Mean Corpuscular Volume 85 fL (80-100); Monocytes # (Auto) 0.7 Thou/mm3 (0.0-0.8); Monocytes % (Auto) 12 % (0-12); Neutrophils # (Auto) 4.2 Thou/mm3 (1.8-7.7); Neutrophils % (Auto) 71 % (37-80); Nucleated Red Blood Cell # 0.00 Thou/mm3 (0.00-0.00); Nucleated Red Blood Cell % 0 /100 WBC (0); Platelet Count 177 Thou/mm3 (140-440); RDW Standard Deviation 50.5 fL (35.1-43.9); Red Blood Count 5.20 Miln/mm3 (4.50-5.90); White Blood Count 5.9 Thou/mm3 (3.8-10.6)
[2024-08-15 06:18] LABS: Glucose Estimated Average 103 mg/dL (80-131); Hemoglobin A1C 5.2 % Hgb (4.8-6.0)
[2024-08-15 06:35] LABS: Alanine Aminotransferase < 7 U/L (10-49); Albumin, Serum 3.7 gm/dL (3.4-4.8); Albumin/Globulin Ratio 1.2 (1.2-2.2); Alkaline Phosphatase 75 U/L (46-116); Anion Gap 8 (7-16); Aspartate Amino Transferase < 10 U/L (0-34); BUN/Creatinine Ratio 13 Ratio (12-20); Bilirubin,Total 0.7 mg/dL (0.3-1.2); Blood Urea Nitrogen 23 mg/dL (9-23); Calcium 8.8 mg/dL (8.3-10.6); Calcium (Corrected) 9.0 mg/dL (8.5-10.1); Carbon Dioxide 31.7 mMol/L (20.0-31.0); Chloride 101 mMol/L (98-107); Creatinine (Component) 1.8 mg/dL (0.6-1.3); Estimated Creatinine Clearance 48.3 mL/min (>60); Globulin 3.0 gm/dL (2.3-3.5); Glucose 93 mg/dL (74-106); Magnesium 1.8 mg/dL (1.6-2.6); Osmolality,Calculated 284 (275-295); Phosphorous 3.4 mg/dL (2.4-5.1); Potassium 4.1 mMol/L (3.4-5.1); Sodium 141 mMol/L (136-145); Total Protein 6.7 gm/dL (5.7-8.2); eGFR 38 See Note
--- NOTE | 2024-08-15 08:12 | PD.RESPRO ---
Documentation for date of: 08/15/24 Subjective Subjective Interval history: Patient seen and examined at the bedside this morning. He reported mild lower back pain. Vitals were fairly stable, mildly hypertensive because of pain. Continues to be in 4 L NC saturating well. CBC stable, CMP at baseline with improvement in creatinine function Patient will be continued on pain medications Continue the patient with Lasix 40 Mg IV daily, aspirin 81 Mg in the evening, atorvastatin 20 Mg daily at night, carvedilol 6.25 Mg twice daily, Farxiga 10 Mg daily, sildenafil 20 Mg daily in the evening. Exam Vital Signs Temp Pulse Resp BP Pulse Ox O2 Del Method O2 Flow Rate 98.9 F 97 17 139/79 H 96 Nasal Cannula 4 08/15/24 07:48 08/15/24 07:48 08/15/24 07:48 08/15/24 07:48 08/15/24 07:48 08/15/24 07:48 08/15/24 07:48 Narrative Exam General: Morbidly obese gentleman, cooperative, no acute distress, Alert and Oriented x 3 HEENT: Moist mucous membranes, oropharynx clear Neck: Supple, No masses, No JVD CVS: S1S2 Regular rate and rhythm, No murmurs, rubs or gallops Lungs: Clear to auscultation with no accessory use, no wheeze no rhonchi, saturating 99% on 4 L NC. Abd: Soft, NT/ND, +BS, no organomegaly Back: Mild tenderness over L3-L4 region Ext: No edema, warm and well perfused Skin: No rash Psych: Appropriate mood and affect Objective Labs 08/15/24 05:12 08/15/24 05:12 Labs: Laboratory Results - last 24 hr 08/14/24 08/15/24 12:12 05:12 WBC 6.8 5.9 RBC 5.27 5.20 Hgb 15.9 15.7 Hct 44.3 44.0 MCV 84 85 MCH 30.2 30.2 MCHC 35.9 35.7 RDW Std Deviation 49.9 H 50.5 H Plt Count 186 177 Neut % (Auto) 78 71 Lymph % (Auto) 6 L 10 Merrick % (Auto) 9 12 Eos % (Auto) 5 6 Baso % (Auto) 1 1 Neut # (Auto) 5.3 4.2 Lymph # (Auto) 0.4 L 0.6 L Merrick # (Auto) 0.6 0.7 Eos # (Auto) 0.4 0.3 Baso # (Auto) 0.1 0.1 Immature Gran # (Auto) 0.02 H 0.02 H Absolute Nucleated RBC 0.00 0.00 Immature Gran % 0 0 Nucleated RBC % 0 0 Sodium 139 141 Potassium 3.9 4.1 Chloride 97 L 101 Carbon Dioxide 34.1 H 31.7 H Anion Gap 8 8 BUN 36 H 23 Creatinine 2.1 H 1.8 H Estim Creat Clear Calc 41.4 L 48.3 L eGFR 32 L 38 L BUN/Creatinine Ratio 17 13 Glucose [address] Glu mg/dL 103 Hemoglobin A1c 5.2 Calculated Osmolality 288 284 Calcium 8.9 8.8 Corrected Calcium 8.9 9.0 Phosphorus 3.4 Magnesium 1.8 Total Bilirubin 0.7 0.7 AST < 10 < 10 ALT < 7 L < 7 L Alkaline Phosphatase 87 75 Total Protein 7.0 6.7 Albumin 4.1 3.7 Globulin 2.9 3.0 Albumin/Globulin Ratio 1.4 1.2 Quality Measures Quality Measures VTE prophylaxis Advance care planning discussed with:: patient and spouse Assessment & Plan Assessment Current Active Medications: Generic Name Dose Route Start Last Admin Trade Name Freq PRN Reason Stop Dose Admin Acetaminophen 650 mg 08/14/24 13:22 Acetaminophen 325 Mg Tablet PO 09/13/24 13:21 Q6H PRN Fever >100.3 or pain 1-3 Dextrose 25 ml 08/14/24 15:56 Dextrose 50%-Water Inj 50 Ml Syringe IV 09/13/24 15:55 Q15MIN PRN BG 50-70 responsive npo pt Dextrose 50 ml 08/14/24 15:56 Dextrose 50%-Water Inj 50 Ml Syringe IV 09/13/24 15:55 Q15MIN PRN BG <50 OR BG <70 & pt unresponsive Glucagon 1 mg 08/14/24 15:56 Glucagon Inj 1 Mg Vial IM Q15MIN PRN BG <70, and no IV access Heparin Sodium (Porcine) 5,000 unit 08/14/24 14:00 08/15/24 05:40 Heparin Sod Inj 5000 Unit/Ml Vial SC 08/28/24 13:59 Not Given Q8HR ROD Insulin Human Lispro 0 unit 08/14/24 17:00 08/15/24 07:37 Insulin Lispro (Admelog) 1 Unit/0.01 Ml Unit SC 09/13/24 16:59 Not Given ACHS ROD Protocol Morphine Sulfate 2 mg 08/14/24 13:27 08/15/24 00:15 Morphine Sulf Inj 10 Mg/Ml Vial IVP 08/19/24 13:26 2 mg Q4HR PRN Administration PAIN SCALE 7-10 (Severe Ondansetron HCl 4 mg 08/14/24 13:22 Ondansetron Inj 2 Mg/Ml Inj 2 Ml IVP 09/13/24 13:21 Q6H PRN NAUSEA OR VOMITING Protocol Plan The patient is a 78-year-old gentleman with past medical history significant for HFpEF, initially severe PAH with RSVP of 100 mmHg by right heart cath currently stable, PAD, NICOLAS, DM type II, hyperlipidemia, hypertension, CKD stage III, obesity, BPH and lumbar disc bulge presented to ED on 08/14/2024 with chief complaint of worsening of back pain leading to ground-level fall is currently being managed for generalized weakness and back pain. Given the patient's extensive cardiac history, cardiology consultation was done. #Intractable back pain #Generalized weakness #Immobility Secondary to lumbar disc bulge as seen in previous lumbar MRI. - Pain management - Physical therapy #HFpEF #Hypertension #Pulmonary arterial hypertension His above conditions are stable with current medications. Hypertensive likely secondary to severe intractable pain. - Continue with home antihypertensive, GDMT and furosemide 80 Mg daily. - Sildenafil 25 mg daily #NICOLAS - Continue with CPAP at night along with 5 L oxygen #CKD stage III - Continue with Kerendia 20 Mg every other day, Mounjaro 10 Mg Monday morning, along with Farxiga 10 Mg. - Avoid nephrotoxic drugs - Renal dose medications #Hyperlipidemia #DM type II -Continue with atorvastatin 20 Mg at night - Maintain euglycemia with blood sugar range between 140-180. Thank you for consulting cardiology team. We appreciate for the opportunity to participate in this patient care. Cardiology team will continue to follow-up on this patient. The patient's management plan was discussed with my attending physician MD Wilman Wade MD, PGY3 Attending Provider Attestation/Addendum I have personally seen and examined the patient separately on the above date of service and discussed the plan of care with the resident. I reviewed the resident Dr. Wilman Corea consultation progress note and agree with the resident findings and plan in the note above and have also edited the documentation to reflect my findings and plan. A 78-year-old male with a past medical history of diastolic congestive heart failure, moderate to severe PAH [possibly combined group 2 and group 3], essential hypertension, type 2 diabetes mellitus, peripheral vascular disease status post WILDLIFE PHOTOGRAPHER bilateral lower extremities, chronic kidney disease stage III, hyperlipidemia, morbid obesity, obstructive sleep apnea, history of back or lumbar spine surgery previously with chronic low back pain, prostate cancer with bony metastasis status post radiotherapy and chemotherapy presented to the emergency department on 08/14/2024 for further worsening of back pain status post fall. Patient was actually seen in the [facility] emergency department a week ago after which he was discharged home and patient continued to have severe back pain and was unable to maintain his balance and had fall at home and was brought in for further evaluation. As per the who was at the bedside patient has not had previous spine surgery and there is some issue with the previous hardware that has been placed and he was seen by orthopedic surgery in [place] but only by PA and recommended that would be a difficult surgery but would discuss with the orthopedic surgeon whose appointment is for next week Monday. Patient otherwise denies any kind of chest pain chest pressure orthopnea or PND or any significant leg swelling. Patient weight apparently has been stable at home along with the vitals. Patient does have shortness of breath at baseline and also has obstructive sleep apnea and uses CPAP at home. Now patient is on 2 L oxygen via nasal cannula during my examination. 1. Fall-appears more mechanical secondary to the back pain 2. Moderate to severe PAH 3. Diastolic CHF or HFpEF 4. Peripheral vascular disease status post WILDLIFE PHOTOGRAPHER bilateral lower extremities 5. Acute on chronic low back pain with history of previous lumbar spine surgery with hardware Patient fall appears to be more mechanical secondary to the back pain and loss of balance but no evidence of any dizziness or syncope any other cardiac symptoms including any palpitations. He has no history of arrhythmias previously. Patient as noted in the HPI has been seen by orthopedic surgery PA and will have to see orthopedic surgical doctor next week Monday for further evaluation of his back pain and some issues with his hardware that was placed previously. Patient possibly might need surgery and patient was informed by me that he would need further ischemic evaluation including a left and right heart catheter. Patient was offered a left heart cardiac catheterization previously as his stress test was inconclusive given his morbid obesity and appeared to have mildly reduced uptake in the inferior segments but patient was not interested in having left heart cardiac catheterization he did not have chest pain or chest pressure and is undergoing treatments for his prostate cancer.. Ischemic evaluation was started because patient had PAD and all significant risk factors for CAD. Discussed with patient again today that he will need further ischemic evaluation with a cardiac catheterization if he is scheduled for an orthopedic surgery for his back pain. Regarding his of moderate to severe pulmonary hypertension patient has been started on sildenafil 20 mg once daily along with aggressive diuresis and is on Lasix 80 mg orally once a day and whenever he has fluid overload he was diuresed with additional Lasix as outpatient. His last admission for heart failure exacerbation was not 2022 when he was initially diagnosed with PAH. Since then patient has been doing well and had no admissions for any heart failure. Present admission is for the fall. Patient was also recommended [facility]io[facility]S for further continued monitoring of his PA pressures for which the patient refused. Recommend to continue sildenafil 20 mg once daily and diuresis with Lasix 80 mg once daily. Patient does have CKD stage III with a creatinine of around 2.0 and creatinine continues to be stable at the present point of time and hence continue the diuresis as noted above. Creatinine better at 1.8 today. He has peripheral arterial disease with multiple interventions and WILDLIFE PHOTOGRAPHER performed both his lower extremities at [place] by his previous workers compensation legal secretary and vascular team. Patient is on aspirin and Plavix along with high intensity statin which we recommend to continue at the present point of time. Recommend to check cholesterol level and increase the statin Blood pressure appears to be adequately controlled and recommend to continue the home regimen and uptitrate it as needed. Management of rest of the medical conditions as per primary team and other consultants. Thank you for the consult and allowing me to participate in the care of the patient. Cardiology will continue to follow. Librado Streeter M.D. Interventional Cardiology
--- NOTE | 2024-08-15 10:04 | PC.SS ---
SNF referral submitted via TED, pending responses
--- NOTE | 2024-08-15 10:23 | PC.SS ---
Jimmy Trujillo is a 78-year-old male admitted to [facility] for CHF Exacerbation. SS conducted bedside contact with the patient to complete initial assessment and to discuss discharge planning. Role and reason explained. Patient confirmed demographic information. Patient identifies his as Christelle Cabello [phone] as his surrogate decision maker. Pt states he lives with his and currently requires assistance to complete ADLs; pt utilizes a walker, transport chair, and oxygen from [facility]. Pt states he is requiring a lot more assistance recently due to pain and weakness. Pts PCP is , last visit was about 1 week ago. Discharge options discussed with pts , they are interested in short-term rehab for the pt. currently they do not have a preference other than NOT going to [facility].? Pt will need assistance with transport at the time of DC. No further intervention required at this time, social work supervisor would be available to address any further concerns. DC Plan: SNF (referral submitted) Contact: Christelle Alvarezroxanne [phone] Address: Confirmed on face sheet PCP: Paola
--- NOTE | 2024-08-15 11:20 | ESPR_ITS ---
Documentation for date of: 08/15/24 Subjective Subjective Interval history: Chief Complaint: CHF, Intractable back and leg pain, weakness HPI: Jimmy Trujillo is a 78 year old male with a past medical hx including multiple comorbidities including hypertension, hyperlipidemia, type 2 diabetes mellitus, obesity, CHF, NICOLAS, CKD stage III who arrived in the emergency department with his with the complaint of back pain (hx of slipped discs) that has been worsening over the last 3 months (for the current episode) along with associated leg pain and poor mobility. Patient states that he sees an orthopedic doctor in [place]. The patient states that last week he fell and was unable to walk with his walker (baseline) ever since then. Without the walker before the fall, the patient's gait is limited. His states that he has a Cardiac history and sees Dr. Streeter (last seen in May and next appt with him Next Monday08/19/2024). States he uses CPAP with 5L O2 every night. Patient came to the emergency department twice and this is his third visit to the emergency department. 08/14/2024 patient was seen and examined in the ED with complaints being is back & leg pain, along with his decreased mobility. Labs notable for BUN 36, Cr 2.1 (appears to be about baseline), glucose 159; EKG sinus rhythm. 08/15/2024 No acute over night events. Patient was seen and examined. Patient states his back pain is feeling a little better. Patient endorses constipation, denies chest pain. ++ shortness of breath, labs notable for BUN 23, Cr 1.8, glucose 93. Exam Vital Signs Temp Pulse Resp BP Pulse Ox O2 Del Method O2 Flow Rate 98.9 F 75 17 139/79 H 96 Nasal Cannula 4 08/15/24 07:48 08/15/24 08:00 08/15/24 07:48 08/15/24 07:48 08/15/24 07:48 08/15/24 07:48 08/15/24 07:48 Narrative Exam Gen: A&Ox3, NAD, resting in bed. at bedside HEENT: NCAT, EOMI, not icteric. Moist mucous membranes. Neck: Supple, full range of motion, no observable masses, No meningeal sign. Lungs: On 4L NC, No Respiratory distress. CV: RRR, 1+ edema in the lower extremities Abdomen: Soft, nondistended, No rebound tenderness. MSK: No joint swelling, no redness. Skin: No rashes, petechiae, lesions. Neuro: No focal neuro deficits; diffuse mild weakness in lower extremities. Psych: Appropriate for situation. Objective Labs 08/15/24 05:12 08/15/24 05:12 Labs: Laboratory Results - last 24 hr 08/14/24 08/15/24 12:12 05:12 WBC 6.8 5.9 RBC 5.27 5.20 Hgb 15.9 15.7 Hct 44.3 44.0 MCV 84 85 MCH 30.2 30.2 MCHC 35.9 35.7 RDW Std Deviation 49.9 H 50.5 H Plt Count 186 177 Neut % (Auto) 78 71 Lymph % (Auto) 6 L 10 Kinney % (Auto) 9 12 Eos % (Auto) 5 6 Baso % (Auto) 1 1 Neut # (Auto) 5.3 4.2 Lymph # (Auto) 0.4 L 0.6 L Kinney # (Auto) 0.6 0.7 Eos # (Auto) 0.4 0.3 Baso # (Auto) 0.1 0.1 Immature Gran # (Auto) 0.02 H 0.02 H Absolute Nucleated RBC 0.00 0.00 Immature Gran % 0 0 Nucleated RBC % 0 0 Sodium 139 141 Potassium 3.9 4.1 Chloride 97 L 101 Carbon Dioxide 34.1 H 31.7 H Anion Gap 8 8 BUN 36 H 23 Creatinine 2.1 H 1.8 H Estim Creat Clear Calc 41.4 L 48.3 L eGFR 32 L 38 L BUN/Creatinine Ratio 17 13 Glucose [address] Glu mg/dL 103 Hemoglobin A1c 5.2 Calculated Osmolality 288 284 Calcium 8.9 8.8 Corrected Calcium 8.9 9.0 Phosphorus 3.4 Magnesium 1.8 Total Bilirubin 0.7 0.7 AST < 10 < 10 ALT < 7 L < 7 L Alkaline Phosphatase 87 75 Total Protein 7.0 6.7 Albumin 4.1 3.7 Globulin 2.9 3.0 Albumin/Globulin Ratio 1.4 1.2 Quality Measures Quality Measures VTE prophylaxis Advance care planning discussed with:: patient and spouse Assessment & Plan Assessment Current Active Medications: Generic Name Dose Route Start Last Admin Trade Name Freq PRN Reason Stop Dose Admin Acetaminophen 650 mg 07/09/25 13:22 Acetaminophen 325 Mg Tablet PO 09/13/24 13:21 Q6H PRN Fever >100.3 or pain 1-3 Dextrose 25 ml 08/14/24 15:56 Dextrose 50%-Water Inj 50 Ml Syringe IV 09/13/24 15:55 Q15MIN PRN BG 50-70 responsive npo pt Dextrose 50 ml 08/14/24 15:56 Dextrose 50%-Water Inj 50 Ml Syringe IV 09/13/24 15:55 Q15MIN PRN BG <50 OR BG <70 & pt unresponsive Docusate Sodium 100 mg 08/15/24 11:18 Docusate Sod 100 Mg Capsule PO 09/14/24 11:17 QDAY PRN CONSTIPATION Protocol Glucagon 1 mg 08/14/24 15:56 Glucagon Inj 1 Mg Vial IM Q15MIN PRN BG <70, and no IV access Heparin Sodium (Porcine) 5,000 unit 08/14/24 14:00 08/15/24 05:40 Heparin Sod Inj 5000 Unit/Ml Vial SC 08/28/24 13:59 Not Given Q8HR [facility] Insulin Human Lispro 0 unit 08/14/24 17:00 08/15/24 07:37 Insulin Lispro (Admelog) 1 Unit/0.01 Ml Unit SC 09/13/24 16:59 Not Given ACHS [facility] Protocol Morphine Sulfate 2 mg 08/14/24 13:27 08/15/24 00:15 Morphine Sulf Inj 10 Mg/Ml Vial IVP 08/19/24 13:26 2 mg Q4HR PRN Administration PAIN SCALE 7-10 (Severe Ondansetron HCl 4 mg 08/14/24 13:22 Ondansetron Inj 2 Mg/Ml Inj 2 Ml IVP 09/13/24 13:21 Q6H PRN NAUSEA OR VOMITING Protocol Plan In summary, Jimmy Trujillo is 76-year-old male with multiple comorbidities including hypertension, hyperlipidemia, type 2 diabetes mellitus, CKD stage III admitted for intractable back pain. #Acute on chronic hypoxic respiratory failure 2/2 #Acute CHF exacerbation Presented to ED with some SOB requiring 6 L oxygen. Appears that his baseline use is 4-5L as needed for SOB. Worsens with activity. Complains of LE swelling. Vitals are stable, labs unremarkable. Home meds include Furosemide 80 mg, carvedilol 40 mg. Patient follows with Dr. Streeter. -consulted cardiology Dr. Streeter--appreciate recommendations -IV lasix 40mg daily -daily weights -strict INOs -low sodium diet -restrict fluid to 1500mL -keep potassium >4, mag >2 -daily CBC, CMP #Intractable Back pain #Leg pain #Immobility #Weakness Patient has chronic back pain that has been worsening over the last 3 months. Patient's baseline ambulation includes using a walker. Last week, patient fell and has not been able to use a walker and has been bed bound, unable to ambulate since due to feeling weak as well. Failed outpatient p.o. pain management. - Allergy And Immunology Chief referred; when appropriate, will plan to DC to rehab with PT. - Continue pain regimen PRN: acetaminophen 650 mg q6h PRN (ckd), morphine IV for severe pain. - Monitor/Address pain appropriately. #CKD Stage III - home meds: Furosdemide 80 mg, Farxiga 10 mg, Kerendia 20 mg every other day, Mounjaro 10 mg Monday. - Pharmacy renal dosing - Monitoring/correcting/repleting electrolytes as needed - Monitoring I/Os #Type 2 Diabetes - home meds: (see above under CKD problem) - A1c 6.0 (11/2023) - SSI, glucose checks ACHS #PHTN #NICOLAS Patient uses CPAP with 5L at night - pain/nausea mgmt PRN - CPAP HS, O2 support PRN, keep O2 sats 88-92%. #constipation Started Colace 100 mg PRN #HTN Home meds include hydralazine 50 mg, carvedilol 40 mg. #HLD Home meds include atorvastatin 20 mg. Health Maintenance Diet: Low Sodium/carb consist GI: No prophylaxis DVT: Heparin SubQ Espinal: No Dispo: Tele Code: DNR/DNI Patient was seen, plan was discussed with attending Dr. Paola Vivar MD PGY-1 Internal Medicine Attending Provider Attestation/Addendum Patient seen and examined with resident physician Dr. Vivar. Note reviewed, agree with findings and recommendations with few changes made. Patient has hypoxic respiratory failure secondary to CHF /NICOLAS-continue with diuretics patient apparently having intractable back pain for the last 3 weeks with frequent falls and unable to take care of him at home. She brought him to the ED twice. Imaging showed patient has significant disc bulge and stenosis. He was supposed to get shots and other treatment options at [place] technical services specialist Not a surgical candidate. Will admit him for pain management, physical therapy and disposition to rehab. Plan of care discussed with at bedside.
--- NOTE | 2024-08-15 13:11 | PC.SS ---
SS attempted to get in contact with Dr. Guevara in regards to pt not meeting inpt criteria for SNF placement, no answer, VM left.
--- NOTE | 2024-08-15 13:30 | PC.SS ---
SS received a call from Dr. Guevara who stated she will review and get back to SS. SS also met with pt and at bedside, was tearful when speaking to SS in regards to the possibility of having to take pt home. As she has no help at home and caring for the pt has become too much for her. SS informed her we are doing what we can and will communicate with her if there are any changes.
[2024-08-15] MEDS: FUROSEMIDE INJ 10 MG/ML 4ML VIAL 40 MG IVP (14:04)
--- NOTE | 2024-08-15 14:19 | PC.PT ---
Patient is safe to transfer to a bedside commode with a FWW and 1 staff assist. RN made aware.
[2024-08-15] MEDS: DAPAGLIFLOZIN PROPANEDIOL 5 MG TABLET 10 MG PO (17:04)
[2024-08-15] MEDS: ATORVASTATIN CALCIUM 20 MG TABLET PO (21:06)
[2024-08-15] MEDS: ASPIRIN EC 81 MG TABEC PO (21:07)
[2024-08-15] MEDS: DOCUSATE SOD 100 MG CAPSULE PO (21:17)
[2024-08-16] VITALS (12 sets, daily range): BP systolic 99–147; BP diastolic 70–83; PULSE 71–81; RESP 15–26; TEMP 36.2–37; O2SAT 92–98
[2024-08-16] MEDS: HEPARIN SOD INJ 5000 UNIT/ML VIAL SC ×3 (06:02→20:41)
[2024-08-16 06:12] LABS: Basophils # (Auto) 0.1 Thou/mm3 (0.0-0.2); Basophils % (Auto) 1 % (0-2.5); Eosinophils # (Auto) 0.3 Thou/mm3 (0.0-0.5); Eosinophils % (Auto) 5 % (0-10); Hematocrit 44.6 % (41.0-53.0); Hemoglobin 15.5 g/dL (13.5-16.0); Immature Granulocytes Auto 0.03 Thou/mm3 (0.00-0.00); Lymphocytes # (Auto) 0.6 Thou/mm3 (1.0-4.8); Lymphocytes % (Auto) 9 % (10-50); Mean Corpuscular HGB Conc 34.8 g/dl (31.0-37.0); Mean Corpuscular Hemoglobin 30.6 pg (25.0-35.0); Mean Corpuscular Volume 88 fL (80-100); Monocytes # (Auto) 1.0 Thou/mm3 (0.0-0.8); Monocytes % (Auto) 14 % (0-12); Neutrophils # (Auto) 4.9 Thou/mm3 (1.8-7.7); Neutrophils % (Auto) 71 % (37-80); Nucleated Red Blood Cell # 0.00 Thou/mm3 (0.00-0.00); Nucleated Red Blood Cell % 0 /100 WBC (0); Platelet Count 205 Thou/mm3 (140-440); RDW Standard Deviation 52.9 fL (35.1-43.9); Red Blood Count 5.07 Miln/mm3 (4.50-5.90); White Blood Count 6.9 Thou/mm3 (3.8-10.6)
[2024-08-16 07:12] LABS: Alanine Aminotransferase < 7 U/L (10-49); Albumin, Serum 3.7 gm/dL (3.4-4.8); Albumin/Globulin Ratio 1.3 (1.2-2.2); Alkaline Phosphatase 75 U/L (46-116); Anion Gap 11 (7-16); Aspartate Amino Transferase < 8 U/L (0-34); BUN/Creatinine Ratio 16 Ratio (12-20); Bilirubin,Total 0.8 mg/dL (0.3-1.2); Blood Urea Nitrogen 29 mg/dL (9-23); Calcium 8.8 mg/dL (8.3-10.6); Calcium (Corrected) 9.0 mg/dL (8.5-10.1); Carbon Dioxide 32.9 mMol/L (20.0-31.0); Cardiac Risk Estimate 3.0 RATIO (4.0-6.7); Chloride 99 mMol/L (98-107); Cholesterol 104 mg/dL (132-200); Creatinine (Component) 1.8 mg/dL (0.6-1.3); Estimated Creatinine Clearance 48.4 mL/min (>60); Globulin 2.9 gm/dL (2.3-3.5); Glucose 91 mg/dL (74-106); HDL Cholesterol 35 mg/dL (40-60); LDL Cholesterol,Calculated 50 mg/dL (0-130); Osmolality,Calculated 290 (275-295); Potassium 4.3 mMol/L (3.4-5.1); Sodium 143 mMol/L (136-145); Total Protein 6.6 gm/dL (5.7-8.2); Triglycerides 95 mg/dL (30-150); eGFR 38 See Note
[2024-08-16] MEDS: FUROSEMIDE INJ 10 MG/ML 4ML VIAL 40 MG IVP (08:22)
[2024-08-16] MEDS: DAPAGLIFLOZIN PROPANEDIOL 5 MG TABLET 10 MG PO (08:22)
--- NOTE | 2024-08-16 10:41 | PD.RESPRO ---
Documentation for date of: 08/16/24 Subjective Subjective Interval history: Chief Complaint: CHF, Intractable back and leg pain, weakness HPI: Jimmy Trujillo is a 78 year old male with a past medical hx including multiple comorbidities including hypertension, hyperlipidemia, type 2 diabetes mellitus, obesity, CHF, NICOLAS, CKD stage III who arrived in the emergency department with his with the complaint of back pain (hx of slipped discs) that has been worsening over the last 3 months (for the current episode) along with associated leg pain and poor mobility. Patient states that he sees an orthopedic doctor in [place]. The patient states that last week he fell and was unable to walk with his walker (baseline) ever since then. Without the walker before the fall, the patient's gait is limited. His states that he has a Cardiac history and sees Dr. Streeter (last seen in May and next appt with him Next Monday08/19/2024). States he uses CPAP with 5L O2 every night. Patient came to the emergency department twice and this is his third visit to the emergency department. 08/14/2024 patient was seen and examined in the ED with complaints being is back & leg pain, along with his decreased mobility. Labs notable for BUN 36, Cr 2.1 (appears to be about baseline), glucose 159; EKG sinus rhythm. 08/15/2024 No acute over night events. Patient was seen and examined. Patient states his back pain is feeling a little better. Patient endorses constipation, denies chest pain. ++ shortness of breath, labs notable for BUN 23, Cr 1.8, glucose 93. 08/16/2024 No acute over night events. Patient was seen and examined. Patient states he still has some lower back pain. Patient endorses continued shortness of breath that has slightly improved. Denies fever, chest pain, abdominal pain. Labs notable for CO2 32.9, BUN 29, Cr 1.8. Exam Vital Signs Temp Pulse Resp BP Pulse Ox O2 Del Method O2 Flow Rate 97.3 F 75 18 127/71 96 Nasal Cannula 5 08/16/24 08:00 08/16/24 08:22 08/16/24 08:00 08/16/24 08:22 08/16/24 08:00 08/16/24 08:00 08/16/24 08:00 Narrative Exam Gen: A&Ox3, NAD, resting in bed. HEENT: NCAT, EOMI, not icteric. Moist mucous membranes. Neck: Supple, full range of motion, no observable masses, No meningeal sign. Lungs: On 5L NC, No Respiratory distress. CV: RRR, 1+ edema in the lower extremities Abdomen: Soft, nondistended, No rebound tenderness. MSK: No joint swelling, no redness. Skin: No rashes, petechiae, lesions. Neuro: No focal neuro deficits; diffuse mild weakness in lower extremities. Psych: Appropriate for situation. Objective Labs 08/16/24 05:05 08/16/24 05:05 Labs: Laboratory Results - last 24 hr 08/16/24 05:05 WBC 6.9 RBC 5.07 Hgb 15.5 Hct 44.6 MCV 88 MCH 30.6 MCHC 34.8 RDW Std Deviation 52.9 H Plt Count 205 Neut % (Auto) 71 Lymph % (Auto) 9 L [place] % (Auto) 14 H Eos % (Auto) 5 Baso % (Auto) 1 Neut # (Auto) 4.9 Lymph # (Auto) 0.6 L [place] # (Auto) 1.0 H Eos # (Auto) 0.3 Baso # (Auto) 0.1 Immature Gran # (Auto) 0.03 H Absolute Nucleated RBC 0.00 Immature Gran % 0 Nucleated RBC % 0 Sodium 143 Potassium 4.3 Chloride 99 Carbon Dioxide 32.9 H Anion Gap 11 BUN 29 H Creatinine 1.8 H Estim Creat Clear Calc 48.4 L eGFR 38 L BUN/Creatinine Ratio 16 Glucose 91 Calculated Osmolality 290 Calcium 8.8 Corrected Calcium 9.0 Total Bilirubin 0.8 AST < 8 ALT < 7 L Alkaline Phosphatase 75 Total Protein 6.6 Albumin 3.7 Globulin 2.9 Albumin/Globulin Ratio 1.3 Triglycerides 95 Cholesterol 104 L LDL Cholesterol, Calc 50 HDL Cholesterol 35 L Cholesterol/HDL Ratio 3.0 L Quality Measures Quality Measures VTE prophylaxis Advance care planning discussed with:: patient and spouse Assessment & Plan Assessment Current Active Medications: Generic Name Dose Route Start Last Admin Trade Name Freq PRN Reason Stop Dose Admin Acetaminophen 650 mg 08/14/24 13:22 Acetaminophen 325 Mg Tablet PO 09/13/24 13:21 Q6H PRN Fever >100.3 or pain 1-3 Aspirin 81 mg 08/15/24 21:00 08/15/24 21:07 Aspirin Ec 81 Mg Tabec PO 09/14/24 20:59 81 mg QPM ROD Administration Atorvastatin Calcium 20 mg 08/15/24 21:00 08/15/24 21:06 Atorvastatin Calcium 20 Mg Tablet PO 09/14/24 20:59 20 mg HS ROD Administration Carvedilol 6.25 mg 08/15/24 21:00 08/16/24 08:22 Carvedilol 3.125 Mg Tablet PO 09/14/24 20:59 6.25 mg BID ROD Administration Dapagliflozin 10 mg 08/15/24 16:15 08/16/24 08:22 Dapagliflozin Propanediol 5 Mg Tablet PO 09/14/24 16:14 10 mg QDAY ROD Administration Dextrose 25 ml 08/14/24 15:56 Dextrose 50%-Water Inj 50 Ml Syringe IV 09/13/24 15:55 Q15MIN PRN BG 50-70 responsive npo pt Dextrose 50 ml 08/14/24 15:56 Dextrose 50%-Water Inj 50 Ml Syringe IV 09/13/24 15:55 Q15MIN PRN BG <50 OR BG <70 & pt unresponsive Docusate Sodium 100 mg 08/15/24 11:18 08/15/24 21:17 Docusate Sod 100 Mg Capsule PO 09/14/24 11:17 100 mg QDAY PRN Administration CONSTIPATION Protocol Furosemide 40 mg 08/15/24 14:00 08/16/24 08:22 Furosemide Inj 10 Mg/Ml 4ml Vial IVP 09/14/24 13:59 40 mg QDAY ROD Administration Glucagon 1 mg 08/14/24 15:56 Glucagon Inj 1 Mg Vial IM Q15MIN PRN BG <70, and no IV access Heparin Sodium (Porcine) 5,000 unit 08/14/24 14:00 08/16/24 06:02 Heparin Sod Inj 5000 Unit/Ml Vial SC 08/28/24 13:59 5,000 unit Q8HR ROD Administration Insulin Human Lispro 0 unit 08/14/24 17:00 08/16/24 07:35 Insulin Lispro (Admelog) 1 Unit/0.01 Ml Unit SC 09/13/24 16:59 Not Given ACHS ROD Protocol Morphine Sulfate 2 mg 08/14/24 13:27 08/15/24 21:06 Morphine Sulf Inj 10 Mg/Ml Vial IVP 08/19/24 13:26 2 mg Q4HR PRN Administration PAIN SCALE 7-10 (Severe Ondansetron HCl 4 mg 08/14/24 13:22 Ondansetron Inj 2 Mg/Ml Inj 2 Ml IVP 09/13/24 13:21 Q6H PRN NAUSEA OR VOMITING Protocol Sildenafil Citrate 20 mg 08/15/24 16:27 Sildenafil Cit 20 Mg Tablet (Non-Formulary) PO 09/14/24 16:26 HS PRN LUNG FUNCTION Plan In summary, Jimmy Trujillo is 76-year-old male with multiple comorbidities including hypertension, hyperlipidemia, type 2 diabetes mellitus, CKD stage III admitted for acute on chronic respiratory failure. #Acute on chronic hypoxic respiratory failure 03/10 #Acute CHF exacerbation Presented to ED with some SOB requiring 6 L oxygen. Appears that his baseline use is 4-5L as needed for SOB. Worsens with activity. Complains of LE swelling. Vitals are stable, labs unremarkable. Home meds include Furosemide 80 mg, carvedilol 40 mg. Patient follows with Dr. Streeter. -consulted cardiology Dr. Streeter--appreciate recommendations -IV lasix 40mg daily -daily weights -strict INOs -low sodium diet -restrict fluid to 1500mL -keep potassium >4, mag >2 -daily CBC, CMP #Back pain #Leg pain #Immobility #Weakness Patient has chronic back pain that has been worsening over the last 3 months. Patient's baseline ambulation includes using a walker. Last week, patient fell and has not been able to use a walker and has been bed bound, unable to ambulate since due to feeling weak as well. Failed outpatient p.o. pain management. - [employer] referred; when appropriate, will plan to DC to rehab with PT. - Continue pain regimen PRN: acetaminophen 650 mg q6h PRN (ckd), morphine IV for severe pain. - Monitor/Address pain appropriately. #CKD Stage III - home meds: Furosemide 80 mg, Farxiga 10 mg, Kerendia 20 mg every other day, Mounjaro 10 mg Monday AM. - Pharmacy renal dosing - Monitoring/correcting/repleting electrolytes as needed - Monitoring I/Os #Type 2 Diabetes - home meds: (see above under CKD problem) - A1c 6.0 (11/2023) - SSI, glucose checks ACHS #PHTN #NICOLAS Patient uses CPAP with 5L at night - pain/nausea mgmt PRN - CPAP HS, O2 support PRN, keep O2 sats 88-92%. #constipation Started Colace 100 mg PRN #HTN Home meds include hydralazine 50 mg, carvedilol 40 mg. -continue the home regimen and uptitrate it as needed. #HLD Home meds include atorvastatin 20 mg. -continue the home regimen. Health Maintenance Diet: Low Sodium/carb consist GI: No prophylaxis DVT: Heparin SubQ Espinal: No Dispo: Tele for [facility] [employer] [facility] Code: DNR/DNI Patient was seen, plan was discussed with attending Dr. Paola Vivar MD PGY-1 Internal Medicine Attending Provider Attestation/Addendum Patient seen and examined with resident physician Dr. Vivar. Note reviewed, agree with findings and recommendations with few changes made. Patient has hypoxic respiratory failure secondary to CHF /NICOLAS-continue with diuretics patient apparently having intractable back pain for the last 3 weeks with frequent falls and unable to take care of him at home. She brought him to the ED twice. Imaging showed patient has significant disc bulge and stenosis. He was supposed to get shots and other treatment options at [place] [facility] Not a surgical candidate. Will admit him for IV diuretics, pain management, physical therapy and disposition to rehab.
--- NOTE | 2024-08-16 10:52 | PC.SS ---
Follow up note: Is on IV Lasix. Pt is possible d/c to SNF once he meets Medicare guide lines which is 3 midnight hospital in pt stay.
[2024-08-16] MEDS: HYDROcodone/APAP 5/325 TABLET 1 TAB PO (11:55)
--- NOTE | 2024-08-16 15:49 | PC.CC ---
PASRR Level 1 complete and downloaded. Level 2 not required.
[2024-08-16] MEDS: MORPHINE SULF INJ 10 MG/ML VIAL 2 MG IVP (16:09)
[2024-08-16] MEDS: INSULIN LISPRO (AdmeLOG) 1 UNIT/0.01 ML UNIT SC ×2 (16:55→20:41)
--- NOTE | 2024-08-16 19:10 | ESPR_ITS ---
Documentation for date of: 08/16/24 Subjective Subjective Interval history: Patient seen and examined at the bedside this morning. He reported mild lower back pain. Vitals were fairly stable, mildly hypertensive because of pain. Continues to be in 4 L NC saturating well. CBC stable, CMP at baseline with improvement in creatinine function Patient will be continued on pain medications Continue the patient with Lasix 40 Mg IV daily, aspirin 81 Mg in the evening, atorvastatin 20 Mg daily at night, carvedilol 6.25 Mg twice daily, Farxiga 10 Mg daily, sildenafil 20 Mg daily in the evening. Echo pending Exam Vital Signs Temp Pulse Resp BP Pulse Ox O2 Del Method O2 Flow Rate 98.1 F 80 26 H 112/71 98 Nasal Cannula 5 08/16/24 16:00 08/16/24 16:00 08/16/24 16:00 08/16/24 16:00 08/16/24 16:00 08/16/24 16:00 08/16/24 16:00 Narrative Exam General: Morbidly obese gentleman, cooperative, no acute distress, Alert and [place] x 3 HEENT: Moist mucous membranes, oropharynx clear Neck: Supple, No masses, No JVD CVS: S1S2 Regular rate and rhythm, No murmurs, rubs or gallops Lungs: Clear to auscultation with no accessory use, no wheeze no rhonchi, saturating 99% on 4 L NC. Abd: Soft, NT/ND, +BS, no organomegaly Back: Mild tenderness over L3-L4 region Ext: No edema, warm and well perfused Skin: No rash Psych: Appropriate mood and affect Objective Labs 08/17/24 05:07 08/17/24 05:07 Labs: Laboratory Results - last 24 hr 08/16/24 05:05 WBC 6.9 RBC 5.07 Hgb 15.5 Hct 44.6 MCV 88 MCH 30.6 MCHC 34.8 RDW Std Deviation 52.9 H Plt Count 205 Neut % (Auto) 71 Lymph % (Auto) 9 L [place] % (Auto) 14 H Eos % (Auto) 5 Baso % (Auto) 1 Neut # (Auto) 4.9 Lymph # (Auto) 0.6 L [place] # (Auto) 1.0 H Eos # (Auto) 0.3 Baso # (Auto) 0.1 Immature Gran # (Auto) 0.03 H Absolute Nucleated RBC 0.00 Immature Gran % 0 Nucleated RBC % 0 Sodium 143 Potassium 4.3 Chloride 99 Carbon Dioxide 32.9 H Anion Gap 11 BUN 29 H Creatinine 1.8 H Estim Creat Clear Calc 48.4 L eGFR 38 L BUN/Creatinine Ratio 16 Glucose 91 Calculated Osmolality 290 Calcium 8.8 Corrected Calcium 9.0 Total Bilirubin 0.8 AST < 8 ALT < 7 L Alkaline Phosphatase 75 Total Protein 6.6 Albumin 3.7 Globulin 2.9 Albumin/Globulin Ratio 1.3 Triglycerides 95 Cholesterol 104 L LDL Cholesterol, Calc 50 HDL Cholesterol 35 L Cholesterol/HDL Ratio 3.0 L Quality Measures Quality Measures VTE prophylaxis Advance care planning discussed with:: patient Assessment & Plan Assessment Current Active Medications: Generic Name Dose Route Start Last Admin Trade Name Freq PRN Reason Stop Dose Admin Acetaminophen 650 mg 08/14/24 13:22 Acetaminophen 325 Mg Tablet PO 09/13/24 13:21 Q6H PRN Fever >100.3 or pain 1-3 Hydrocodone Bitart/Acetaminophen 1 tab 08/16/24 11:51 08/16/24 11:55 Hydrocodone/Apap 5/325 Tablet PO 08/21/24 11:50 1 tab Q6HR PRN Administration PAIN SCALE 4-6 (Moderate Aspirin 81 mg 08/15/24 21:00 08/15/24 21:07 Aspirin Ec 81 Mg Tabec PO 09/14/24 20:59 81 mg QPM ROD Administration Atorvastatin Calcium 20 mg 08/15/24 21:00 08/15/24 21:06 Atorvastatin Calcium 20 Mg Tablet PO 09/14/24 20:59 20 mg HS ROD Administration Carvedilol 6.25 mg 08/15/24 21:00 08/16/24 08:22 Carvedilol 3.125 Mg Tablet PO 09/14/24 20:59 6.25 mg BID ROD Administration Dapagliflozin 10 mg 08/15/24 16:15 08/16/24 08:22 Dapagliflozin Propanediol 5 Mg Tablet PO 09/14/24 16:14 10 mg QDAY ROD Administration Dextrose 25 ml 08/14/24 15:56 Dextrose 50%-Water Inj 50 Ml Syringe IV 09/13/24 15:55 Q15MIN PRN BG 50-70 responsive npo pt Dextrose 50 ml 08/14/24 15:56 Dextrose 50%-Water Inj 50 Ml Syringe IV 09/13/24 15:55 Q15MIN PRN BG <50 OR BG <70 & pt unresponsive Docusate Sodium 100 mg 08/15/24 11:18 08/15/24 21:17 Docusate Sod 100 Mg Capsule PO 09/14/24 11:17 100 mg QDAY PRN Administration CONSTIPATION Protocol Furosemide 40 mg 08/15/24 14:00 08/16/24 08:22 Furosemide Inj 10 Mg/Ml 4ml Vial IVP 09/14/24 13:59 40 mg QDAY ROD Administration Glucagon 1 mg 08/14/24 15:56 Glucagon Inj 1 Mg Vial IM Q15MIN PRN BG <70, and no IV access Heparin Sodium (Porcine) 5,000 unit 08/14/24 14:00 08/16/24 14:57 Heparin Sod Inj 5000 Unit/Ml Vial SC 08/28/24 13:59 5,000 unit Q8HR ROD Administration Insulin Human Lispro 0 unit 08/14/24 17:00 08/16/24 16:55 Insulin Lispro (Admelog) 1 Unit/0.01 Ml Unit SC 09/13/24 16:59 1 unit ACHS ROD Administration Protocol Morphine Sulfate 2 mg 08/14/24 13:27 08/16/24 16:09 Morphine Sulf Inj 10 Mg/Ml Vial IVP 08/19/24 13:26 2 mg Q4HR PRN Administration PAIN SCALE 7-10 (Severe Ondansetron HCl 4 mg 08/14/24 13:22 Ondansetron Inj 2 Mg/Ml Inj 2 Ml IVP 09/13/24 13:21 Q6H PRN NAUSEA OR VOMITING Protocol Sildenafil Citrate 20 mg 08/15/24 16:27 Sildenafil Cit 20 Mg Tablet (Non-Formulary) PO 09/14/24 16:26 HS PRN LUNG FUNCTION Plan The patient is a 78-year-old gentleman with past medical history significant for HFpEF, initially severe PAH with RSVP of 100 mmHg by right heart cath currently stable, PAD, NICOLAS, DM type II, hyperlipidemia, hypertension, CKD stage III, obesity, BPH and lumbar disc bulge presented to ED on 08/14/2024 with chief complaint of worsening of back pain leading to ground-level fall is currently being managed for generalized weakness and back pain. Given the patient's extensive cardiac history, cardiology consultation was done. #Intractable back pain #Generalized weakness #Immobility Secondary to lumbar disc bulge as seen in previous lumbar MRI. - Pain management - Physical therapy #HFpEF #Hypertension #Pulmonary arterial hypertension His above conditions are stable with current medications. Hypertensive likely secondary to severe intractable pain. - Continue with home antihypertensive, GDMT and furosemide 80 Mg daily. - Sildenafil 20 mg daily - Echo pending #PAD #Possible CAD Patient will probably need surgery of his lower back, and for presurgical cardiac assessment, he will need left and right heart catheterization. Previously patient was offered left heart catheterization, as a stress test was inconclusive 2/2 morbid obesity and was found to have mildly reduced uptake in the inferior segment, but patient declined the procedure for left heart at that time. The patient has significant history of PAD, and significant risk factor for CAD with CKD stage III, hyperlipidemia, morbid obesity, NICOLAS, diabetes mellitus type 2 further requiring cardiac catheterization. -Continue with aspirin and atorvastatin for now - Left and right heart catheterization likely to be done soon, if presurgical cardiac assessment is required. #NICOLAS - Continue with CPAP at night along with 5 L oxygen #CKD stage III - Continue with Kerendia 20 Mg every other day, Mounjaro 10 Mg Monday morning, along with Farxiga 10 Mg. - Avoid nephrotoxic drugs - Renal dose medications #Hyperlipidemia #DM type II -Continue with atorvastatin 20 Mg at night - Maintain euglycemia with blood sugar range between 140-180. Thank you for consulting cardiology team. We appreciate for the opportunity to participate in this patient care. Cardiology team will continue to follow-up on this patient. The patient's management plan was discussed with my attending physician MD Wilman Wade MD, PGY3 Attending Provider Attestation/Addendum I have personally seen and examined the patient separately on the above date of service and discussed the plan of care with the resident. I reviewed the resident Dr. Wilman Corea consultation progress note and agree with the resident findings and plan in the note above and have also edited the documentation to reflect my findings and plan. Librado Streeter M.D. Interventional Cardiology
--- NOTE | 2024-08-16 19:47 | ECHO_ITS ---
Transthoracic Echo Report Ht (in): 72 Wt (lb): 300 Exam Location: Echo Lab Status: Inpatient Sole Sewer Hand: Adri Liu Indications: Procedure Performed: BP: 125 / 86 HR: 77 Technical Quality: Very Technically Difficult Due to Body Habitus MEASUREMENTS (Male / Female) Normal Values 2D ECHO LV Diastolic Diameter PLAX 5.0 cm 4.2 - 5.9 / 3.9 - 5.3 cm LV Systolic Diameter PLAX 2.8 cm IVS Diastolic Thickness 1.6 cm 0.6 - 1.0 / 0.6 - 0.9 cm LVPW Diastolic Thickness 1.3 cm 0.6 - 1.0 / 0.6 - 0.9 cm LV Relative Wall Thickness 0.6 LVOT Diameter 2.1 cm DOPPLER TR Peak Velocity 362.5 cm/s TR Peak Gradient 52.6 mmHg PV Peak Velocity 125.0 cm/s PV Peak Gradient 6.3 mmHg FINDINGS Left Ventricle Normal left ventricular size and systolic function with no obvious regional wall motion abnormalities. Moderate ventricular septal hypertrophy. The ejection fraction is visually estimated at >70% %. Off axis views obtained due to suboptimal acoustic windows. Best views from subcostal images. Unable to determine diastology due to suboptimal acoustic windows. Right Ventricle The right ventricle is severely enlarged with moderately reduced systolic function. Moderate RVH. The estimated right ventricular systolic pressure, 90 mmHg. RAP 15mmHg. Left Atrium The left atrium is normal by two-dimensional, color flow and Doppler imaging with no structural abnormalities, no thrombus formation present. Right Atrium The right atrial cavity size is severely increased. Atrial Septum The interatrial septum appears normal with no evidence of a shunt. Aorta The aorta is normal by two-dimensional, color flow and Doppler interrogation. Mitral Valve The mitral valve is normal by two-dimensional, color flow and Doppler interrogation. There is no significant mitral valve regurgitation, stenosis or prolapse. Aortic Valve The aortic valve is trileaflet and normal by two-dimensional, color flow and Doppler interrogation. There is no significant aortic valve regurgitation. Best views obtained from SAX windows. Tricuspid Valve The tricuspid valve is normal by two-dimensional, color flow and Doppler interrogation. There is trace tricuspid valve regurgitation. Pulmonic Valve The pulmonic valve is not well visualized. There is trace pulmonic valve regurgitation. Vessels The pulmonary artery appears normal. The inferior vena cava is dilated with <50% collapse. Pericardium The pericardium is normal by two-dimensional imaging. There is no significant pericardial effusion. CONCLUSIONS Indications: Pulmonary Artery Hypertension. Normal LV size with moderate LVH. Normal LV function with an estimated EF of 65 to 70%. Diastolic dysfunction present but could not be graded. Moderately dilated RV with RVH. Severely elevated RVSP between 80 to 90 mmHg. Mild flattening of the septum during systole indicating pressure overload. Mild TR and trace MR. Dilated IVC with <50% Collapse. Trace pericardial Effusion. Librado Streeter (Electronically Signed) Final Date: 17 August 2024 08:55
[2024-08-16] MEDS: ATORVASTATIN CALCIUM 20 MG TABLET PO (20:43)
[2024-08-16] MEDS: ASPIRIN EC 81 MG TABEC PO (20:43)
[2024-08-17] VITALS (13 sets, daily range): BP systolic 117–148; BP diastolic 65–83; PULSE 69–93; RESP 16–21; TEMP 36.1–36.9; O2SAT 94–99; BMI 40.5; BMI 40.4
[2024-08-17] MEDS: HEPARIN SOD INJ 5000 UNIT/ML VIAL SC ×3 (05:32→21:21)
[2024-08-17 06:21] LABS: Basophils # (Auto) 0.1 Thou/mm3 (0.0-0.2); Basophils % (Auto) 1 % (0-2.5); Eosinophils # (Auto) 0.2 Thou/mm3 (0.0-0.5); Eosinophils % (Auto) 3 % (0-10); Hematocrit 42.1 % (41.0-53.0); Hemoglobin 14.9 g/dL (13.5-16.0); Immature Granulocytes Auto 0.03 Thou/mm3 (0.00-0.00); Lymphocytes # (Auto) 0.6 Thou/mm3 (1.0-4.8); Lymphocytes % (Auto) 7 % (10-50); Mean Corpuscular HGB Conc 35.4 g/dl (31.0-37.0); Mean Corpuscular Hemoglobin 30.2 pg (25.0-35.0); Mean Corpuscular Volume 85 fL (80-100); Monocytes # (Auto) 1.2 Thou/mm3 (0.0-0.8); Monocytes % (Auto) 15 % (0-12); Neutrophils # (Auto) 5.8 Thou/mm3 (1.8-7.7); Neutrophils % (Auto) 74 % (37-80); Nucleated Red Blood Cell # 0.00 Thou/mm3 (0.00-0.00); Nucleated Red Blood Cell % 0 /100 WBC (0); Platelet Count 186 Thou/mm3 (140-440); RDW Standard Deviation 49.5 fL (35.1-43.9); Red Blood Count 4.94 Miln/mm3 (4.50-5.90); White Blood Count 7.8 Thou/mm3 (3.8-10.6)
[2024-08-17 07:11] LABS: Alanine Aminotransferase < 7 U/L (10-49); Albumin, Serum 3.7 gm/dL (3.4-4.8); Albumin/Globulin Ratio 1.3 (1.2-2.2); Alkaline Phosphatase 71 U/L (46-116); Anion Gap 7 (7-16); Aspartate Amino Transferase < 8 U/L (0-34); BUN/Creatinine Ratio 16 Ratio (12-20); Bilirubin,Total 0.9 mg/dL (0.3-1.2); Blood Urea Nitrogen 28 mg/dL (9-23); Calcium 9.0 mg/dL (8.3-10.6); Calcium (Corrected) 9.2 mg/dL (8.5-10.1); Carbon Dioxide 35.6 mMol/L (20.0-31.0); Chloride 98 mMol/L (98-107); Creatinine (Component) 1.7 mg/dL (0.6-1.3); Estimated Creatinine Clearance 51.1 mL/min (>60); Globulin 2.9 gm/dL (2.3-3.5); Glucose 99 mg/dL (74-106); Osmolality,Calculated 286 (275-295); Potassium 4.3 mMol/L (3.4-5.1); Sodium 141 mMol/L (136-145); Total Protein 6.6 gm/dL (5.7-8.2); eGFR 41 See Note
--- NOTE | 2024-08-17 09:04 | ESPR_ITS ---
Documentation for date of: 08/17/24 Subjective Subjective Interval history: Jimmy Truijllo is a 78 year old male with a past medical hx including multiple comorbidities including hypertension, hyperlipidemia, type 2 diabetes mellitus, obesity, CHF, NICOLAS, CKD stage III who arrived in the emergency department with his with the complaint of back pain (hx of slipped discs) that has been worsening over the last 3 months (for the current episode) along with associated leg pain and poor mobility. Patient states that he sees an orthopedic doctor in [place]. The patient states that last week he fell and was unable to walk with his walker (baseline) ever since then. Without the walker before the fall, the patient's gait is limited. His states that he has a Cardiac history and sees Dr. Streeter (last seen in May and next appt with him Next Monday08/19/2024). States he uses CPAP with 5L O2 every night. Patient came to the emergency department twice and this is his third visit to the emergency department. 08/14/2024 patient was seen and examined in the ED with complaints being is back & leg pain, along with his decreased mobility. Labs notable for BUN 36, Cr 2.1 (appears to be about baseline), glucose 159; EKG sinus rhythm. 08/15/2024 No acute over night events. Patient was seen and examined. Patient states his back pain is feeling a little better. Patient endorses constipation, denies chest pain. ++ shortness of breath, labs notable for BUN 23, Cr 1.8, glucose 93. 08/16/2024 No acute over night events. Patient was seen and examined. Patient states he still has some lower back pain. Patient endorses continued shortness of breath that has slightly improved. Denies fever, chest pain, abdominal pain. Labs notable for CO2 32.9, BUN 29, Cr 1.8. 08/17/2024: No acute overnight events. Patient was seen and examined at bedside. No new complaints. Still having mild back pain and mild SOB. Denies fever or chest pain. Plan for [facility] with projected discharge on Monday. Exam Vital Signs Temp Pulse Resp BP Pulse Ox O2 Del Method O2 Flow Rate 98.1 F 83 20 124/65 97 Nasal Cannula 4 08/17/24 07:45 08/17/24 07:45 08/17/24 07:45 08/17/24 07:45 08/17/24 07:45 08/17/24 07:45 08/17/24 07:45 Narrative Exam Gen: A&Ox3, NAD, resting in bed. HEENT: NCAT, EOMI, not icteric. Moist mucous membranes. Neck: Supple, full range of motion, no observable masses, No meningeal sign. Lungs: On 5L NC, No Respiratory distress. CV: RRR, 1+ edema in the lower extremities Abdomen: Soft, nondistended, No rebound tenderness. MSK: No joint swelling, no redness. Skin: No rashes, petechiae, lesions. Neuro: No focal neuro deficits; diffuse mild weakness in lower extremities. Psych: Appropriate for situation. Objective Labs 08/17/24 05:07 08/17/24 05:07 Labs: Laboratory Results - last 24 hr 08/17/24 05:07 WBC 7.8 RBC 4.94 Hgb 14.9 Hct 42.1 MCV 85 MCH 30.2 MCHC 35.4 RDW Std Deviation 49.5 H Plt Count 186 Neut % (Auto) 74 Lymph % (Auto) 7 L [place] % (Auto) 15 H Eos % (Auto) 3 Baso % (Auto) 1 Neut # (Auto) 5.8 Lymph # (Auto) 0.6 L [place] # (Auto) 1.2 H Eos # (Auto) 0.2 Baso # (Auto) 0.1 Immature Gran # (Auto) 0.03 H Absolute Nucleated RBC 0.00 Immature Gran % 0 Nucleated RBC % 0 Sodium 141 Potassium 4.3 Chloride 98 Carbon Dioxide 35.6 H Anion Gap 7 BUN 28 H Creatinine 1.7 H Estim Creat Clear Calc 51.1 L eGFR 41 L BUN/Creatinine Ratio 16 Glucose 99 Calculated Osmolality 286 Calcium 9.0 Corrected Calcium 9.2 Total Bilirubin 0.9 AST < 8 ALT < 7 L Alkaline Phosphatase 71 Total Protein 6.6 Albumin 3.7 Globulin 2.9 Albumin/Globulin Ratio 1.3 Quality Measures Quality Measures VTE prophylaxis Advance care planning discussed with:: patient Assessment & Plan Assessment Current Active Medications: Generic Name Dose Route Start Last Admin Trade Name Freq PRN Reason Stop Dose Admin Acetaminophen 650 mg 08/14/24 13:22 Acetaminophen 325 Mg Tablet PO 09/13/24 13:21 Q6H PRN Fever >100.3 or pain 1-3 Hydrocodone Bitart/Acetaminophen 1 tab 08/16/24 11:51 08/16/24 11:55 Hydrocodone/Apap 5/325 Tablet PO 08/21/24 11:50 1 tab Q6HR PRN Administration PAIN SCALE 4-6 (Moderate Aspirin 81 mg 08/15/24 21:00 08/16/24 20:43 Aspirin Ec 81 Mg Tabec PO 09/14/24 20:59 81 mg QPM ROD Administration Atorvastatin Calcium 20 mg 08/15/24 21:00 08/16/24 20:43 Atorvastatin Calcium 20 Mg Tablet PO 09/14/24 20:59 20 mg HS ORD Administration Carvedilol 6.25 mg 08/15/24 21:00 08/16/24 20:43 Carvedilol 3.125 Mg Tablet PO 09/14/24 20:59 6.25 mg BID ROD Administration Dapagliflozin 10 mg 08/15/24 16:15 08/16/24 08:22 Dapagliflozin Propanediol 5 Mg Tablet PO 09/14/24 16:14 10 mg QDAY ROD Administration Dextrose 25 ml 08/14/24 15:56 Dextrose 50%-Water Inj 50 Ml Syringe IV 09/13/24 15:55 Q15MIN PRN BG 50-70 responsive npo pt Dextrose 50 ml 08/14/24 15:56 Dextrose 50%-Water Inj 50 Ml Syringe IV 09/13/24 15:55 Q15MIN PRN BG <50 OR BG <70 & pt unresponsive Docusate Sodium 100 mg 08/15/24 11:18 08/15/24 21:17 Docusate Sod 100 Mg Capsule PO 09/14/24 11:17 100 mg QDAY PRN Administration CONSTIPATION Protocol Furosemide 40 mg 08/15/24 14:00 08/16/24 08:22 Furosemide Inj 10 Mg/Ml 4ml Vial IVP 09/14/24 13:59 40 mg QDAY ROD Administration Glucagon 1 mg 08/14/24 15:56 Glucagon Inj 1 Mg Vial IM Q15MIN PRN BG <70, and no IV access Heparin Sodium (Porcine) 5,000 unit 08/14/24 14:00 08/17/24 05:32 Heparin Sod Inj 5000 Unit/Ml Vial SC 08/28/24 13:59 5,000 unit Q8HR ROD Administration Insulin Human Lispro 0 unit 08/14/24 17:00 08/17/24 07:42 Insulin Lispro (Admelog) 1 Unit/0.01 Ml Unit SC 09/13/24 16:59 Not Given ACHS ROD Protocol Morphine Sulfate 2 mg 08/14/24 13:27 08/16/24 16:09 Morphine Sulf Inj 10 Mg/Ml Vial IVP 08/19/24 13:26 2 mg Q4HR PRN Administration PAIN SCALE 7-10 (Severe Ondansetron HCl 4 mg 08/14/24 13:22 Ondansetron Inj 2 Mg/Ml Inj 2 Ml IVP 09/13/24 13:21 Q6H PRN NAUSEA OR VOMITING Protocol Sildenafil Citrate 20 mg 08/15/24 16:27 Sildenafil Cit 20 Mg Tablet (Non-Formulary) PO 09/14/24 16:26 HS PRN LUNG FUNCTION Plan In summary, Jimmy Trujillo is 76-year-old male with multiple comorbidities including hypertension, hyperlipidemia, type 2 diabetes mellitus, CKD stage III admitted for acute on chronic respiratory failure. #Acute on chronic hypoxic respiratory failure, improving #Acute CHF exacerbation #HFpEF #HTN Presented to ED with some SOB requiring 6 L oxygen. Appears that his baseline use is 4-5L as needed for SOB. Worsens with activity. Complains of LE swelling. Vitals are stable, labs unremarkable. Home meds include Furosemide 80 mg, carvedilol 40 mg. Patient follows with Dr. Streeter. -Cardiology Dr. Streeter recommends to continue current medical management -GDMT: Carvedilol 6.25 mg BID, Farxiga 10 mg QD, IV lasix 40mg daily -strict I&Os and daily weights -low sodium diet with fluid restriction 1500mL -keep potassium >4, mag >2 #Back pain #Leg pain #Immobility #Weakness Patient has chronic back pain that has been worsening over the last 3 months. Patient's baseline ambulation includes using a walker. Last week, patient fell and has not been able to use a walker and has been bed bound, unable to ambulate since due to feeling weak as well. Failed outpatient p.o. pain management. - PT recommends inpatient rehab, will plan to discharge to [facility] - Transition morphine IV to [place] 5 for pain #CKD Stage III - Continue home meds: Farxiga 10 mg, Kerendia 20 mg every other day, Mounjaro 10 mg Fer - Continue IV lasix 40 mg QD - Strict I&Os and replete electrolytes as needed #PHTN #NICOLAS Patient uses CPAP with 5L at night - CPAP HS, O2 support PRN, keep O2 sats 88-92% - Sildenafil 20 mg qhs #Type 2 Diabetes A1c 5.2 (08/2024) - Continue home meds: (see above) - SSI #HLD - Continue home atorvastatin 20 mg QD #constipation - Colace 100 mg PRN Health Maintenance Diet: Low Sodium/carb consist GI: None DVT: Heparin q8h Espinal: No Dispo: Tele for [facility] Code: DNR/DNI Patient was seen, plan was discussed with attending Dr. Paola Lozada DO, PGY-1 Attending Provider Attestation/Addendum Patient seen and examined with resident physician Dr. Lozada. Note reviewed, agree with findings and recommendations with few changes made. Patient has hypoxic respiratory failure secondary to CHF /NICOLAS-continue with diuretics patient apparently having intractable back pain for the last 3 weeks with frequent falls and unable to take care of him at home. She brought him to the ED twice. Imaging showed patient has significant disc bulge and stenosis. He was supposed to get shots and other treatment options at [place] facility practice specialist . Will admit him for IV diuretics, pain management, physical therapy and disposition to rehab. Patient seen by cardiology. Recommended angiogram for preop clearance for the back surgery. Will go for angiogram on Monday. Plan of care discussed with at bedside Patient on and off seems to have some confusion-probably related to hospital- acquired
[2024-08-17] MEDS: FUROSEMIDE INJ 10 MG/ML 4ML VIAL 40 MG IVP (09:18)
[2024-08-17] MEDS: DAPAGLIFLOZIN PROPANEDIOL 5 MG TABLET 10 MG PO (09:19)
--- NOTE | 2024-08-17 10:48 | PD.RESPRO ---
Documentation for date of: 08/17/24 Subjective Subjective Interval history: Patient seen and examined at the bedside this morning. He reported mild lower back pain. Vitals were fairly stable, mildly hypertensive because of pain. Continues to be in 4 L NC saturating well. CBC stable, CMP at baseline with improvement in creatinine function Patient will be continued on pain medications Echo on 08/16 revealed Normal LV size with moderate LVH. Normal LV function with an estimated EF of 65 to 70%. Diastolic dysfunction present but could not be graded. Moderately dilated RV with RVH. Severely elevated RVSP between 80 to 90 mmHg. Mild flattening of the septum during systole indicating pressure overload. Mild TR and trace MR. Dilated IVC with <50% Collapse. Trace pericardial Effusion. Continue the patient with Lasix 40 Mg IV daily, aspirin 81 Mg in the evening, atorvastatin 20 Mg daily at night, carvedilol 6.25 Mg twice daily, Farxiga 10 Mg daily, sildenafil 20 Mg daily in the evening. Exam Vital Signs Temp Pulse Resp BP Pulse Ox O2 Del Method O2 Flow Rate 98.1 F 83 18 124/65 98 Nasal Cannula 5 08/17/24 07:45 08/17/24 09:19 08/17/24 08:38 08/17/24 09:19 08/17/24 08:38 08/17/24 07:45 08/17/24 08:38 Narrative Exam General: Morbidly obese gentleman, cooperative, no acute distress, Alert and Oriented x 3 HEENT: Moist mucous membranes, oropharynx clear Neck: Supple, No masses, No JVD CVS: S1S2 Regular rate and rhythm, No murmurs, rubs or gallops Lungs: Clear to auscultation with no accessory use, no wheeze no rhonchi, saturating 99% on 4 L NC. Abd: Soft, NT/ND, +BS, no organomegaly Back: Mild tenderness over L3-L4 region Ext: No edema, warm and well perfused Skin: No rash Psych: Appropriate mood and affect Objective Labs 08/17/24 05:07 08/17/24 05:07 Labs: Laboratory Results - last 24 hr 08/17/24 05:07 WBC 7.8 RBC 4.94 Hgb 14.9 Hct 42.1 MCV 85 MCH 30.2 MCHC 35.4 RDW Std Deviation 49.5 H Plt Count 186 Neut % (Auto) 74 Lymph % (Auto) 7 L [place] % (Auto) 15 H Eos % (Auto) 3 Baso % (Auto) 1 Neut # (Auto) 5.8 Lymph # (Auto) 0.6 L [place] # (Auto) 1.2 H Eos # (Auto) 0.2 Baso # (Auto) 0.1 Immature Gran # (Auto) 0.03 H Absolute Nucleated RBC 0.00 Immature Gran % 0 Nucleated RBC % 0 Sodium 141 Potassium 4.3 Chloride 98 Carbon Dioxide 35.6 H Anion Gap 7 BUN 28 H Creatinine 1.7 H Estim Creat Clear Calc 51.1 L eGFR 41 L BUN/Creatinine Ratio 16 Glucose 99 Calculated Osmolality 286 Calcium 9.0 Corrected Calcium 9.2 Total Bilirubin 0.9 AST < 8 ALT < 7 L Alkaline Phosphatase 71 Total Protein 6.6 Albumin 3.7 Globulin 2.9 Albumin/Globulin Ratio 1.3 Quality Measures Quality Measures VTE prophylaxis Advance care planning discussed with:: patient and spouse Assessment & Plan Assessment Current Active Medications: Generic Name Dose Route Start Last Admin Trade Name Freq PRN Reason Stop Dose Admin Acetaminophen 650 mg 08/14/24 13:22 Acetaminophen 325 Mg Tablet PO 09/13/24 13:21 Q6H PRN Fever >100.3 or pain 1-3 Hydrocodone Bitart/Acetaminophen 1 tab 08/16/24 11:51 08/16/24 11:55 Hydrocodone/Apap 5/325 Tablet PO 08/21/24 11:50 1 tab Q6HR PRN Administration PAIN SCALE 4-6 (Moderate Aspirin 81 mg 08/15/24 21:00 08/16/24 20:43 Aspirin Ec 81 Mg Tabec PO 09/14/24 20:59 81 mg QPM ROD Administration Atorvastatin Calcium 20 mg 08/15/24 21:00 08/16/24 20:43 Atorvastatin Calcium 20 Mg Tablet PO 09/14/24 20:59 20 mg HS ROD Administration Carvedilol 6.25 mg 08/15/24 21:00 08/17/24 09:19 Carvedilol 3.125 Mg Tablet PO 09/14/24 20:59 6.25 mg BID ROD Administration Dapagliflozin 10 mg 08/15/24 16:15 08/17/24 09:19 Dapagliflozin Propanediol 5 Mg Tablet PO 09/14/24 16:14 10 mg QDAY ROD Administration Dextrose 25 ml 08/14/24 15:56 Dextrose 50%-Water Inj 50 Ml Syringe IV 09/13/24 15:55 Q15MIN PRN BG 50-70 responsive npo pt Dextrose 50 ml 08/14/24 15:56 Dextrose 50%-Water Inj 50 Ml Syringe IV 09/13/24 15:55 Q15MIN PRN BG <50 OR BG <70 & pt unresponsive Docusate Sodium 100 mg 08/15/24 11:18 08/15/24 21:17 Docusate Sod 100 Mg Capsule PO 09/14/24 11:17 100 mg QDAY PRN Administration CONSTIPATION Protocol Furosemide 40 mg 08/15/24 14:00 08/17/24 09:18 Furosemide Inj 10 Mg/Ml 4ml Vial IVP 09/14/24 13:59 40 mg QDAY ROD Administration Glucagon 1 mg 08/14/24 15:56 Glucagon Inj 1 Mg Vial IM Q15MIN PRN BG <70, and no IV access Heparin Sodium (Porcine) 5,000 unit 08/14/24 14:00 08/17/24 05:32 Heparin Sod Inj 5000 Unit/Ml Vial SC 08/28/24 13:59 5,000 unit Q8HR ROD Administration Insulin Human Lispro 0 unit 08/14/24 17:00 08/17/24 07:42 Insulin Lispro (Admelog) 1 Unit/0.01 Ml Unit SC 09/13/24 16:59 Not Given ACHS ROD Protocol Morphine Sulfate 2 mg 08/14/24 13:27 08/16/24 16:09 Morphine Sulf Inj 10 Mg/Ml Vial IVP 08/19/24 13:26 2 mg Q4HR PRN Administration PAIN SCALE 7-10 (Severe Ondansetron HCl 4 mg 08/14/24 13:22 Ondansetron Inj 2 Mg/Ml Inj 2 Ml IVP 09/13/24 13:21 Q6H PRN NAUSEA OR VOMITING Protocol Sildenafil Citrate 20 mg 08/15/24 16:27 Sildenafil Cit 20 Mg Tablet (Non-Formulary) PO 09/14/24 16:26 HS PRN LUNG FUNCTION Plan The patient is a 78-year-old gentleman with past medical history significant for HFpEF, initially severe PAH with RSVP of 100 mmHg by right heart cath currently stable, PAD, NICOLAS, DM type II, hyperlipidemia, hypertension, CKD stage III, obesity, BPH and lumbar disc bulge presented to ED on 08/14/2024 with chief complaint of worsening of back pain leading to ground-level fall is currently being managed for generalized weakness and back pain. Given the patient's extensive cardiac history, cardiology consultation was done. #Intractable back pain #Generalized weakness #Immobility Secondary to lumbar disc bulge as seen in previous lumbar MRI. - Pain management - Physical therapy #HFpEF #Hypertension #Pulmonary arterial hypertension His above conditions are stable with current medications, except for PAH Echo on 08/16 revealed Normal LV size with moderate LVH. Normal LV function with an estimated EF of 65 to 70%. Diastolic dysfunction present but could not be graded. Moderately dilated RV with RVH. Severely elevated RVSP between 80 to 90 mmHg. Mild flattening of the septum during systole indicating pressure overload. Mild TR and trace MR. Dilated IVC with <50% Collapse. Trace pericardial Effusion. - Continue with home antihypertensive, GDMT and furosemide 80 Mg daily. - Sildenafil 20 mg daily - Echo pending #PAD #Possible CAD Patient will probably need surgery of his lower back, and for presurgical cardiac assessment, he will need left and right heart catheterization. Previously patient was offered left heart catheterization, as a stress test was inconclusive 2/2 morbid obesity and was found to have mildly reduced uptake in the inferior segment, but patient declined the procedure for left heart at that time. The patient has significant history of PAD, and significant risk factor for CAD with CKD stage III, hyperlipidemia, morbid obesity, NICOLAS, diabetes mellitus type 2 further requiring cardiac catheterization. -Continue with aspirin and atorvastatin for now -Left and right heart catheterization likely to be done soon, if presurgical cardiac assessment is required. #NICOLAS - Continue with CPAP at night along with 5 L oxygen #CKD stage III - Continue with Kerendia 20 Mg every other day, Mounjaro 10 Mg Monday morning, along with Farxiga 10 Mg. - Avoid nephrotoxic drugs - Renal dose medications #Hyperlipidemia #DM type II -Continue with atorvastatin 20 Mg at night - Maintain euglycemia with blood sugar range between 140-180. Thank you for consulting cardiology team. We appreciate for the opportunity to participate in this patient care. Cardiology team will continue to follow-up on this patient. The patient's management plan was discussed with my attending physician MD Wilman Wade MD, PGY3 Attending Provider Attestation/Addendum I have personally seen and examined the patient separately on the above date of service and discussed the plan of care with the resident. I reviewed the resident Dr. Wilman Corea consultation progress note and agree with the resident findings and plan in the note above and have also edited the documentation to reflect my findings and plan. Librado Streeter M.D. Interventional Cardiology
--- NOTE | 2024-08-17 13:58 | PC.SS ---
ASW spoke with Dr. Guevara and reported that when pt is ready for dc the family informed her that they decided the pt will dc to SNF [facility].
[2024-08-17] MEDS: ATORVASTATIN CALCIUM 20 MG TABLET PO (21:19)
[2024-08-17] MEDS: ASPIRIN EC 81 MG TABEC PO (21:19)
[2024-08-18] VITALS (12 sets, daily range): BP systolic 124–165; BP diastolic 73–96; PULSE 65–108; RESP 17–20; TEMP 36.2–36.7; O2SAT 92–97; BMI 39.8
[2024-08-18] MEDS: HEPARIN SOD INJ 5000 UNIT/ML VIAL SC ×2 (05:34→13:52)
[2024-08-18] MEDS: FUROSEMIDE INJ 10 MG/ML 4ML VIAL 40 MG IVP (08:36)
[2024-08-18] MEDS: DAPAGLIFLOZIN PROPANEDIOL 5 MG TABLET 10 MG PO (09:49)
--- NOTE | 2024-08-18 10:57 | PD.RESPRO ---
Documentation for date of: 08/18/24 Subjective Subjective Interval history: Jimmy Trujillo is a 78 year old male with a past medical hx including multiple comorbidities including hypertension, hyperlipidemia, type 2 diabetes mellitus, obesity, CHF, NICOLAS, CKD stage III who arrived in the emergency department with his with the complaint of back pain (hx of slipped discs) that has been worsening over the last 3 months (for the current episode) along with associated leg pain and poor mobility. Patient states that he sees an orthopedic doctor in [place]. The patient states that last week he fell and was unable to walk with his walker (baseline) ever since then. Without the walker before the fall, the patient's gait is limited. His states that he has a Cardiac history and sees Dr. Streeter (last seen in May and next appt with him Next Monday08/19/2024). States he uses CPAP with 5L O2 every night. Patient came to the emergency department twice and this is his third visit to the emergency department. 08/14/2024 patient was seen and examined in the ED with complaints being is back & leg pain, along with his decreased mobility. Labs notable for BUN 36, Cr 2.1 (appears to be about baseline), glucose 159; EKG sinus rhythm. 08/15/2024 No acute over night events. Patient was seen and examined. Patient states his back pain is feeling a little better. Patient endorses constipation, denies chest pain. ++ shortness of breath, labs notable for BUN 23, Cr 1.8, glucose 93. 08/16/2024 No acute over night events. Patient was seen and examined. Patient states he still has some lower back pain. Patient endorses continued shortness of breath that has slightly improved. Denies fever, chest pain, abdominal pain. Labs notable for CO2 32.9, BUN 29, Cr 1.8. 08/17/2024: No acute overnight events. Patient was seen and examined at bedside. No new complaints. Still having mild back pain and mild SOB. Denies fever or chest pain. Plan for [facility] with projected discharge on Monday. 08/18/2024: No acute overnight events. Patient was seen and examined at bedside. Patient denies any new complaints. Patient endorses still having mild back pain and mild SOB. Denies fever or chest pain. Plan for [facility] with projected discharge on Monday. Exam Vital Signs Temp Pulse Resp BP Pulse Ox O2 Del Method O2 Flow Rate 97.5 F 84 18 125/87 H 94 L Nasal Cannula 5 08/18/24 07:53 08/18/24 08:36 08/18/24 07:53 08/18/24 08:36 08/18/24 07:53 08/18/24 07:53 08/18/24 07:53 Narrative Exam Gen: A&Ox3, NAD, resting in bed. HEENT: NCAT, EOMI, not icteric. Moist mucous membranes. Neck: Supple, full range of motion, no observable masses, No meningeal sign. Lungs: On 5L NC, No Respiratory distress. CV: RRR, 1+ edema in the lower extremities Abdomen: Soft, nondistended, No rebound tenderness. MSK: No joint swelling, no redness. Skin: No rashes, petechiae, lesions. Neuro: No focal neuro deficits; diffuse mild weakness in lower extremities. Psych: Appropriate for situation. Objective Labs 08/17/24 05:07 08/17/24 05:07 Quality Measures Quality Measures VTE prophylaxis Advance care planning discussed with:: patient and spouse Assessment & Plan Assessment Current Active Medications: Generic Name Dose Route Start Last Admin Trade Name Freq PRN Reason Stop Dose Admin Acetaminophen 650 mg 08/14/24 13:22 Acetaminophen 325 Mg Tablet PO 09/13/24 13:21 Q6H PRN Fever >100.3 or pain 1-3 Hydrocodone Bitart/Acetaminophen 1 tab 08/16/24 11:51 08/16/24 11:55 Hydrocodone/Apap 5/325 Tablet PO 08/21/24 11:50 1 tab Q6HR PRN Administration PAIN SCALE 4-6 (Moderate Aspirin 81 mg 08/15/24 21:00 08/17/24 21:19 Aspirin Ec 81 Mg Tabec PO 09/14/24 20:59 81 mg QPM ROD Administration Atorvastatin Calcium 20 mg 08/15/24 21:00 08/17/24 21:19 Atorvastatin Calcium 20 Mg Tablet PO 09/14/24 20:59 20 mg HS ROD Administration Carvedilol 6.25 mg 08/15/24 21:00 08/18/24 08:36 Carvedilol 3.125 Mg Tablet PO 09/14/24 20:59 6.25 mg BID ROD Administration Dapagliflozin 10 mg 08/15/24 16:15 08/18/24 09:49 Dapagliflozin Propanediol 5 Mg Tablet PO 09/14/24 16:14 10 mg QDAY ROD Administration Dextrose 25 ml 08/14/24 15:56 Dextrose 50%-Water Inj 50 Ml Syringe IV 09/13/24 15:55 Q15MIN PRN BG 50-70 responsive npo pt Dextrose 50 ml 08/14/24 15:56 Dextrose 50%-Water Inj 50 Ml Syringe IV 09/13/24 15:55 Q15MIN PRN BG <50 OR BG <70 & pt unresponsive Docusate Sodium 100 mg 08/15/24 11:18 08/15/24 21:17 Docusate Sod 100 Mg Capsule PO 09/14/24 11:17 100 mg QDAY PRN Administration CONSTIPATION Protocol Furosemide 40 mg 08/15/24 14:00 08/18/24 08:36 Furosemide Inj 10 Mg/Ml 4ml Vial IVP 09/14/24 13:59 40 mg QDAY ROD Administration Glucagon 1 mg 08/14/24 15:56 Glucagon Inj 1 Mg Vial IM Q15MIN PRN BG <70, and no IV access Heparin Sodium (Porcine) 5,000 unit 08/14/24 14:00 08/18/24 05:34 Heparin Sod Inj 5000 Unit/Ml Vial SC 08/28/24 13:59 5,000 unit Q8HR ROD Administration Insulin Human Lispro 0 unit 08/14/24 17:00 08/18/24 07:37 Insulin Lispro (Admelog) 1 Unit/0.01 Ml Unit SC 09/13/24 16:59 Not Given ACHS ROD Protocol Morphine Sulfate 2 mg 08/14/24 13:27 08/16/24 16:09 Morphine Sulf Inj 10 Mg/Ml Vial IVP 08/19/24 13:26 2 mg Q4HR PRN Administration PAIN SCALE 7-10 (Severe Ondansetron HCl 4 mg 08/14/24 13:22 Ondansetron Inj 2 Mg/Ml Inj 2 Ml IVP 09/13/24 13:21 Q6H PRN NAUSEA OR VOMITING Protocol Sildenafil Citrate 20 mg 08/15/24 16:27 Sildenafil Cit 20 Mg Tablet (Non-Formulary) PO 09/14/24 16:26 HS PRN LUNG FUNCTION Plan In summary, Jimmy Trujillo is 76-year-old male with multiple comorbidities including hypertension, hyperlipidemia, type 2 diabetes mellitus, CKD stage III admitted for acute on chronic respiratory failure. #Acute on chronic hypoxic respiratory failure, improving #Acute CHF exacerbation #HFpEF #HTN Presented to ED with some SOB requiring 6 L oxygen. Appears that his baseline use is 4-5L as needed for SOB. Worsens with activity. Complains of LE swelling. Vitals are stable, labs unremarkable. Home meds include Furosemide 80 mg, carvedilol 40 mg. Patient follows with Dr. Streeter. -Cardiology Dr. Streeter recommends to continue current medical management -GDMT: Carvedilol 6.25 mg BID, Farxiga 10 mg QD, IV lasix 40mg daily -strict I&Os and daily weights -low sodium diet with fluid restriction 1500mL -keep potassium >4, mag >2 #Back pain #Leg pain #Immobility #Weakness Patient has chronic back pain that has been worsening over the last 3 months. Patient's baseline ambulation includes using a walker. Last week, patient fell and has not been able to use a walker and has been bed bound, unable to ambulate since due to feeling weak as well. Failed outpatient p.o. pain management. - PT recommends inpatient rehab, will plan to discharge to [facility] - Transition morphine IV to [place] 5 for pain #CKD Stage III - Continue home meds: Farxiga 10 mg, Kerendia 20 mg every other day, Mounjaro 10 mg Monday - Continue IV lasix 40 mg QD - Strict I&Os and replete electrolytes as needed #PHTN #NICOLAS Patient uses CPAP with 5L at night - CPAP HS, O2 support PRN, keep O2 sats 88-92% - Sildenafil 20 mg qhs #Type 2 Diabetes A1c 5.2 (08/2024) - Continue home meds: (see above) - SSI #HLD - Continue home atorvastatin 20 mg QD #constipation - Colace 100 mg PRN Health Maintenance Diet: Low Sodium/carb consist GI: None DVT: Heparin q8h Espinal: No Dispo: Tele for [facility] Code: DNR/DNI Patient was seen, plan was discussed with attending Dr. Paola Vivar MD PGY-1 Attending Provider Attestation/Addendum Patient seen and examined with resident physician Dr. Vivar. Note reviewed, agree with findings and recommendations with few changes made. Patient has hypoxic respiratory failure secondary to CHF /NICOLAS-continue with diuretics patient apparently having intractable back pain for the last 3 weeks with frequent falls and unable to take care of him at home. She brought him to the ED twice. Imaging showed patient has significant disc bulge and stenosis. He was supposed to get shots and other treatment options at [place] [facility] specialist . Will admit him for IV diuretics, pain management, physical therapy and disposition to rehab. Patient seen by cardiology. Recommended angiogram for preop clearance for the back surgery. Will go for angiogram on Monday. Plan of care discussed with at bedside Patient on and off seems to have some confusion-probably related to hospital-acquired
[2024-08-18] MEDS: INSULIN LISPRO (AdmeLOG) 1 UNIT/0.01 ML UNIT SC (11:39)
--- NOTE | 2024-08-18 14:32 | PC.NURSE ---
Dr. Streeter in to see pt, plan for cardiac cath 08/19, orders entered per MD.
--- NOTE | 2024-08-18 16:29 | PD.RESPRO ---
Documentation for date of: 08/18/24 Subjective Subjective Interval history: Patient seen and examined at the bedside this morning. He reported mild lower back pain. Vitals were fairly stable, mildly hypertensive because of pain. Continues to be in 4 L NC saturating well. CBC stable, CMP at baseline with improvement in creatinine function Patient will be continued on pain medications Echo on 08/16 revealed Normal LV size with moderate LVH. Normal LV function with an estimated EF of 65 to 70%. Diastolic dysfunction present but could not be graded. Moderately dilated RV with RVH. Severely elevated RVSP between 80 to 90 mmHg. Mild flattening of the septum during systole indicating pressure overload. Mild TR and trace MR. Dilated IVC with <50% Collapse. Trace pericardial Effusion. Continue the patient with Lasix 40 Mg IV daily, aspirin 81 Mg in the evening, atorvastatin 20 Mg daily at night, carvedilol 6.25 Mg twice daily, Farxiga 10 Mg daily, sildenafil 20 Mg daily in the evening. Exam Vital Signs Temp Pulse Resp BP Pulse Ox O2 Del Method O2 Flow Rate 98.1 F 65 19 124/96 H 95 Nasal Cannula 5 08/18/24 15:42 08/18/24 16:00 08/18/24 15:42 08/18/24 15:42 08/18/24 15:42 08/18/24 15:42 08/18/24 15:42 Narrative Exam General: Morbidly obese gentleman, cooperative, no acute distress, Alert and Oriented x 3 HEENT: Moist mucous membranes, oropharynx clear Neck: Supple, No masses, No JVD CVS: S1S2 Regular rate and rhythm, No murmurs, rubs or gallops Lungs: Clear to auscultation with no accessory use, no wheeze no rhonchi, saturating 99% on 4 L NC. Abd: Soft, NT/ND, +BS, no organomegaly Back: Mild tenderness over L3-L4 region Ext: No edema, warm and well perfused Skin: No rash Psych: Appropriate mood and affect Objective Labs 08/17/24 05:07 08/17/24 05:07 Quality Measures Quality Measures VTE prophylaxis Advance care planning discussed with:: patient and spouse Assessment & Plan Assessment Current Active Medications: Generic Name Dose Route Start Last Admin Trade Name Freq PRN Reason Stop Dose Admin Acetaminophen 650 mg 08/14/24 13:22 Acetaminophen 325 Mg Tablet PO 09/13/24 13:21 Q6H PRN Fever >100.3 or pain 1-3 Hydrocodone Bitart/Acetaminophen 1 tab 08/16/24 11:51 08/16/24 11:55 Hydrocodone/Apap 5/325 Tablet PO 08/21/24 11:50 1 tab Q6HR PRN Administration PAIN SCALE 4-6 (Moderate Aspirin 81 mg 08/15/24 21:00 08/17/24 21:19 Aspirin Ec 81 Mg Tabec PO 09/14/24 20:59 81 mg QPM ROD Administration Atorvastatin Calcium 20 mg 08/15/24 21:00 08/17/24 21:19 Atorvastatin Calcium 20 Mg Tablet PO 09/14/24 20:59 20 mg HS ROD Administration Carvedilol 6.25 mg 08/15/24 21:00 08/18/24 08:36 Carvedilol 3.125 Mg Tablet PO 09/14/24 20:59 6.25 mg BID ROD Administration Dapagliflozin 10 mg 08/15/24 16:15 08/18/24 09:49 Dapagliflozin Propanediol 5 Mg Tablet PO 09/14/24 16:14 10 mg QDAY ROD Administration Dextrose 25 ml 08/14/24 15:56 Dextrose 50%-Water Inj 50 Ml Syringe IV 09/13/24 15:55 Q15MIN PRN BG 50-70 responsive npo pt Dextrose 50 ml 08/14/24 15:56 Dextrose 50%-Water Inj 50 Ml Syringe IV 09/13/24 15:55 Q15MIN PRN BG <50 OR BG <70 & pt unresponsive Docusate Sodium 100 mg 08/15/24 11:18 08/15/24 21:17 Docusate Sod 100 Mg Capsule PO 09/14/24 11:17 100 mg QDAY PRN Administration CONSTIPATION Protocol Furosemide 40 mg 08/15/24 14:00 08/18/24 08:36 Furosemide Inj 10 Mg/Ml 4ml Vial IVP 09/14/24 13:59 40 mg QDAY ROD Administration Glucagon 1 mg 08/14/24 15:56 Glucagon Inj 1 Mg Vial IM Q15MIN PRN BG <70, and no IV access Insulin Human Lispro 0 unit 08/14/24 17:00 08/18/24 11:39 Insulin Lispro (Admelog) 1 Unit/0.01 Ml Unit SC 09/13/24 16:59 1 unit ACHS ROD Administration Protocol Morphine Sulfate 2 mg 08/14/24 13:27 08/16/24 16:09 Morphine Sulf Inj 10 Mg/Ml Vial IVP 08/19/24 13:26 2 mg Q4HR PRN Administration PAIN SCALE 7-10 (Severe Ondansetron HCl 4 mg 08/14/24 13:22 Ondansetron Inj 2 Mg/Ml Inj 2 Ml IVP 09/13/24 13:21 Q6H PRN NAUSEA OR VOMITING Protocol Sildenafil Citrate 20 mg 08/15/24 16:27 Sildenafil Cit 20 Mg Tablet (Non-Formulary) PO 09/14/24 16:26 HS PRN LUNG FUNCTION Plan The patient is a 78-year-old gentleman with past medical history significant for HFpEF, initially severe PAH with RSVP of 100 mmHg by right heart cath currently stable, PAD, NICOLAS, DM type II, hyperlipidemia, hypertension, CKD stage III, obesity, BPH and lumbar disc bulge presented to ED on 08/14/2024 with chief complaint of worsening of back pain leading to ground-level fall is currently being managed for generalized weakness and back pain. Given the patient's extensive cardiac history, cardiology consultation was done. #Possible CAD #PAD Patient will probably need surgery of his lower back, and for presurgical cardiac assessment, he will need left and right heart catheterization. Previously patient was offered left heart catheterization, as a stress test was inconclusive 2/2 morbid obesity and was found to have mildly reduced uptake in the inferior segment, but patient declined the procedure for left heart at that time. The patient has significant history of PAD, and significant risk factor for CAD with CKD stage III, hyperlipidemia, morbid obesity, NICOLAS, diabetes mellitus type 2 further requiring cardiac catheterization. -Continue with aspirin and atorvastatin for now -Left and right heart catheterization likely to be done on Monday08/19/2024 morning, for presurgical cardiac assessment. #Intractable back pain #Generalized weakness #Immobility Secondary to lumbar disc bulge as seen in previous lumbar MRI. - Pain management - Physical therapy #HFpEF #Hypertension #Pulmonary arterial hypertension His above conditions are stable with current medications, except for PAH Echo on 08/16 revealed Normal LV size with moderate LVH. Normal LV function with an estimated EF of 65 to 70%. Diastolic dysfunction present but could not be graded. Moderately dilated RV with RVH. Severely elevated RVSP between 80 to 90 mmHg. Mild flattening of the septum during systole indicating pressure overload. Mild TR and trace MR. Dilated IVC with <50% Collapse. Trace pericardial Effusion. - Continue with home antihypertensive, GDMT and furosemide 80 Mg daily. - Sildenafil 20 mg daily - Echo pending #NICOLAS - Continue with CPAP at night along with 5 L oxygen #CKD stage III - Continue with Kerendia 20 Mg every other day, Mounjaro 10 Mg Monday morning, along with Farxiga 10 Mg. - Avoid nephrotoxic drugs - Renal dose medications #Hyperlipidemia #DM type II -Continue with atorvastatin 20 Mg at night - Maintain euglycemia with blood sugar range between 140-180. Thank you for consulting cardiology team. We appreciate for the opportunity to participate in this patient care. Cardiology team will continue to follow-up on this patient. The patient's management plan was discussed with my attending physician MD Wilman Wade MD, PGY3 Attending Provider Attestation/Addendum I have personally seen and examined the patient separately on the above date of service and discussed the plan of care with the resident. I reviewed the resident Dr. Wilman Corea consultation progress note and agree with the resident findings and plan in the note above and have also edited the documentation to reflect my findings and plan. Librado Streeter M.D. Interventional Cardiology
[2024-08-18] MEDS: ATORVASTATIN CALCIUM 20 MG TABLET PO (21:27)
[2024-08-18] MEDS: ASPIRIN EC 81 MG TABEC PO (21:27)
[2024-08-19] VITALS (23 sets, daily range): BP systolic 106–205; BP diastolic 68–129; PULSE 67–100; RESP 15–23; TEMP 36.1–36.6; O2SAT 92–98; BMI 39.6
[2024-08-19 06:09] LABS: Basophils # (Auto) 0.1 Thou/mm3 (0.0-0.2); Basophils % (Auto) 1 % (0-2.5); Eosinophils # (Auto) 0.3 Thou/mm3 (0.0-0.5); Eosinophils % (Auto) 3 % (0-10); Hematocrit 48.0 % (41.0-53.0); Hemoglobin 17.2 g/dL (13.5-16.0); Immature Granulocytes Auto 0.08 Thou/mm3 (0.00-0.00); Lymphocytes # (Auto) 0.9 Thou/mm3 (1.0-4.8); Lymphocytes % (Auto) 11 % (10-50); Mean Corpuscular HGB Conc 35.8 g/dl (31.0-37.0); Mean Corpuscular Hemoglobin 29.9 pg (25.0-35.0); Mean Corpuscular Volume 83 fL (80-100); Monocytes # (Auto) 1.0 Thou/mm3 (0.0-0.8); Monocytes % (Auto) 13 % (0-12); Neutrophils # (Auto) 5.8 Thou/mm3 (1.8-7.7); Neutrophils % (Auto) 72 % (37-80); Nucleated Red Blood Cell # 0.00 Thou/mm3 (0.00-0.00); Nucleated Red Blood Cell % 0 /100 WBC (0); Platelet Count 211 Thou/mm3 (140-440); RDW Standard Deviation 47.0 fL (35.1-43.9); Red Blood Count 5.76 Miln/mm3 (4.50-5.90); White Blood Count 8.2 Thou/mm3 (3.8-10.6)
[2024-08-19 07:14] LABS: Alanine Aminotransferase 7 U/L (10-49); Albumin, Serum 4.3 gm/dL (3.4-4.8); Albumin/Globulin Ratio 1.2 (1.2-2.2); Alkaline Phosphatase 82 U/L (46-116); Anion Gap 16 (7-16); Aspartate Amino Transferase 15 U/L (0-34); BUN/Creatinine Ratio 22 Ratio (12-20); Bilirubin,Total 1.3 mg/dL (0.3-1.2); Blood Urea Nitrogen 38 mg/dL (9-23); Calcium 9.7 mg/dL (8.3-10.6); Calcium (Corrected) 9.7 mg/dL (8.5-10.1); Carbon Dioxide 28.1 mMol/L (20.0-31.0); Chloride 97 mMol/L (98-107); Creatinine (Component) 1.7 mg/dL (0.6-1.3); Estimated Creatinine Clearance 50.5 mL/min (>60); Globulin 3.5 gm/dL (2.3-3.5); Glucose 108 mg/dL (74-106); Magnesium 1.8 mg/dL (1.6-2.6); Osmolality,Calculated 291 (275-295); Phosphorous 2.3 mg/dL (2.4-5.1); Potassium 4.7 mMol/L (3.4-5.1); Sodium 141 mMol/L (136-145); Total Protein 7.8 gm/dL (5.7-8.2); eGFR 41 See Note
[2024-08-19] MEDS: DAPAGLIFLOZIN PROPANEDIOL 5 MG TABLET 10 MG PO (08:40)
[2024-08-19] MEDS: FUROSEMIDE INJ 10 MG/ML 4ML VIAL 40 MG IVP (08:41)
[2024-08-19] MEDS: Magnesium Sulfate 2 GM Ivpb 2 GM/50 ML BAG IV (08:52)
--- NOTE | 2024-08-19 10:10 | PD.RESDS ---
Planned Discharge Date 08/19/24 DS: Providers Provider Date of admission: 08/14/24 13:48 Primary care physician: Ken Guevara MD Admitting Provider: Ken Guevara MD Attending Provider on Admission: Ken Guevara MD Consults: 08/14/24 13:32 Consult to Cardiology Routine Comment: Patient follows outpatient with Dr. Streeter Consulting Provider: Librado Streeter 08/14/24 23:45 Referral Respiratory Therapy Routine Comment: 08/15/24 08:00 Referral Physical Therapy Routine Comment: Physician Instructions: Referral Wound Care Routine Comment: Attending Provider on DC: Ken Guevara MD Discharging Provider: Ken Guevara MD Anticipated date of discharge: 08/19/24 DS: Diagnosis Problem List Completed Was Problem List Reviewed/Reconciled?: Yes Hospital Course Hospital Course Hospital course: Jimmy Trujillo is a 78 year old male with a past medical hx including multiple comorbidities including hypertension, hyperlipidemia, type 2 diabetes mellitus, obesity, CHF, NICOLAS, CKD stage III who arrived in the emergency department with his with the complaint of back pain (hx of slipped discs) that has been worsening over the last 3 months (for the current episode) along with associated leg pain and poor mobility. Patient states that he sees an orthopedic doctor in [place]. The patient states that last week he fell and was unable to walk with his walker (baseline) ever since then. Without the walker before the fall, the patient's gait is limited. His states that he has a Cardiac history and sees Dr. Streeter (last seen in May and next appt with him Next Monday08/19/2024). States he uses CPAP with 5L O2 every night. Patient came to the emergency department twice and this is his third visit to the emergency department. 08/14/2024 patient was seen and examined in the ED with complaints being is back & leg pain, along with his decreased mobility. Labs notable for BUN 36, Cr 2.1 (appears to be about baseline), glucose 159; EKG sinus rhythm. 08/15/2024 No acute over night events. Patient was seen and examined. Patient states his back pain is feeling a little better. Patient endorses constipation, denies chest pain. ++ shortness of breath, labs notable for BUN 23, Cr 1.8, glucose 93. 08/16/2024 No acute over night events. Patient was seen and examined. Patient states he still has some lower back pain. Patient endorses continued shortness of breath that has slightly improved. Denies fever, chest pain, abdominal pain. Labs notable for CO2 32.9, BUN 29, Cr 1.8. 08/17/2024: No acute overnight events. Patient was seen and examined at bedside. No new complaints. Still having mild back pain and mild SOB. Denies fever or chest pain. Plan for [facility] with projected discharge on Monday. 08/18/2024: No acute overnight events. Patient was seen and examined at bedside. Patient denies any new complaints. Patient endorses still having mild back pain and mild SOB. Denies fever or chest pain. Plan for [facility] with projected discharge on Monday. 08/19/2024 No acute overnight events. Patient was seen and examined at bedside. Patient denies any new complaints. Patient endorses still having mild back pain and mild SOB. Denies fever or chest pain. Plan for [facility] with projected discharge later today after heart catheterization. Time Spent with Patient Time attestation: Total time spent providing and/or coordinating discharge services: Time spent: Greater than 30 minutes Exam Vital Signs Temp Pulse Resp BP Pulse Ox O2 Del Method O2 Flow Rate 97.1 F 81 18 142/89 H 97 Nasal Cannula 5 08/19/24 08:00 08/19/24 08:41 08/19/24 08:00 08/19/24 08:41 08/19/24 08:00 08/19/24 08:00 08/19/24 08:00 Narrative Exam Gen: A&Ox3, NAD, resting in bed. HEENT: NCAT, EOMI, not icteric. Moist mucous membranes. Neck: Supple, full range of motion, no observable masses, No meningeal sign. Lungs: On 5L NC, No Respiratory distress. CV: RRR, mild edema in the lower extremities Abdomen: Soft, nondistended, No rebound tenderness. MSK: No joint swelling, no redness. Skin: No rashes, petechiae, lesions. Neuro: No focal neuro deficits; mild weakness in lower extremities. Psych: Appropriate for situation. Discharge Plan Plan Patient Disposition: Xfer Skilled Nsg Fac (SNF) Disposition Comment: [facility] Patient condition on transfer: Stable Prescriptions/Referrals Prescriptions/Med Rec: Continued furosemide [Lasix] 40 mg Tablet 80 mg PO QAM atorvastatin 20 mg Tablet 20 mg PO HS sildenafil 25 mg Tablet 20 mg PO .evening PRN (Reason: Lung function) Rx Instructions: administer 30 minutes to 4 hours before activity hydralazine 50 mg Tablet 50 mg PO TID pregabalin 50 mg Capsule 100 mg PO .evening Januvia 100 mg Tablet 100 mg PO QDAY dapagliflozin propanediol [Farxiga] 10 mg Tablet 10 mg PO QDAY Kerendia 20 mg Tablet 20 mg PO .qod aspirin 81 mg Capsule 81 mg PO .evening cholecalciferol (vitamin D3) [Vitamin D3] 25 mcg (1,000 unit) tablet 2,000 unit PO QDAY carvedilol 6.25 mg tablet 6.25 mg PO BID Mounjaro 10 mg/0.5 mL pen injector 10 mg SUBCUT QWEEK Patient Comments: INJECT 10MG SUBCUTANEOUSLY WEEKLY Referrals: Ken Guevara MD [Primary Care Provider] - Patient/Caregiver Discharge Instructions Other Discharge Activity Instructions:: Pt has coban and tegaderm to right wrist. Please remove coban 08/20/24 @1445 and remove tegaderm 08/21/24 @1445. Education Materials: Chest and Lung Problems, Anatomy of a Normal Spine Print Language: Welsh Stand Alone Forms: [facility] Award Info., Patient Portal Info Letter Discharge Order Discharge Orders: Discharge (Routine); Ordered 08/19/24 Ordered By: Ken Guevara Quality Discharge Quality Measures VTE prophylaxis Attestestation MD Attestation Patient seen and examined with resident physician Dr. Vivar. Note reviewed, agree with findings and recommendations. Patient will be going to rehab. Cardiac cath showed mild coronary artery disease.
--- NOTE | 2024-08-19 14:35 | PD.RESPRO ---
Documentation for date of: 08/19/24 Subjective Subjective Interval history: Patient seen and examined at the bedside this morning. He reported mild lower back pain. Vitals were fairly stable, mildly hypertensive because of pain. Continues to be in 4 L NC saturating well. CBC stable, CMP at baseline with improvement in creatinine function Patient will be continued on pain medications Echo on 08/16 revealed Normal LV size with moderate LVH. Normal LV function with an estimated EF of 65 to 70%. Diastolic dysfunction present but could not be graded. Moderately dilated RV with RVH. Severely elevated RVSP between 80 to 90 mmHg. Mild flattening of the septum during systole indicating pressure overload. Mild TR and trace MR. Dilated IVC with <50% Collapse. Trace pericardial Effusion. 08/19/2024: The patient underwent left heart cardiac catheterization and was found to have mild CAD with less than 20% stenosis in both LAD and mid RCA. Continue the patient with Lasix 80 mg oral Lasix 80 mg oral to be continued at discharge along with aspirin 81 Mg in the evening, atorvastatin 20 Mg daily at night, carvedilol 6.25 Mg twice daily, Farxiga 10 Mg daily, sildenafil 20 Mg daily in the evening. Recommended not to lift the more than 5 lbs with right hand for 1 week and keep the wrist pressure bandage for 24-48 hours; and F/U with Dr. Streeter in 1 week. Exam Vital Signs Temp Pulse Resp BP Pulse Ox O2 Del Method O2 Flow Rate 97.9 F 81 15 140/80 H 98 Nasal Cannula 5 08/19/24 12:08 08/19/24 12:08 08/19/24 12:08 08/19/24 12:08 08/19/24 12:08 08/19/24 12:08 08/19/24 12:08 Narrative Exam General: Morbidly obese gentleman, cooperative, no acute distress, Alert and Oriented x 3 HEENT: Moist mucous membranes, oropharynx clear Neck: Supple, No masses, No JVD CVS: S1S2 Regular rate and rhythm, No murmurs, rubs or gallops Lungs: Clear to auscultation with no accessory use, no wheeze no rhonchi, saturating 99% on 4 L NC. Abd: Soft, NT/ND, +BS, no organomegaly Back: Mild tenderness over L3-L4 region Ext: No edema, warm and well perfused Skin: No rash Psych: Appropriate mood and affect Objective Labs 08/19/24 04:55 08/19/24 04:55 Labs: Laboratory Results - last 24 hr 08/19/24 04:55 WBC 8.2 RBC 5.76 Hgb 17.2 H D Hct 48.0 MCV 83 MCH 29.9 MCHC 35.8 RDW Std Deviation 47.0 H Plt Count 211 Neut % (Auto) 72 Lymph % (Auto) 11 [place] % (Auto) 13 H Eos % (Auto) 3 Baso % (Auto) 1 Neut # (Auto) 5.8 Lymph # (Auto) 0.9 L [place] # (Auto) 1.0 H Eos # (Auto) 0.3 Baso # (Auto) 0.1 Immature Gran # (Auto) 0.08 H Absolute Nucleated RBC 0.00 Immature Gran % 1 H Nucleated RBC % 0 Sodium 141 Potassium 4.7 Chloride 97 L Carbon Dioxide 28.1 Anion Gap 16 BUN 38 H Creatinine 1.7 H Estim Creat Clear Calc 50.5 L eGFR 41 L BUN/Creatinine Ratio 22 H Glucose 108 H Calculated Osmolality 291 Calcium 9.7 Corrected Calcium 9.7 Phosphorus 2.3 L Magnesium 1.8 Total Bilirubin 1.3 H AST 15 ALT 7 L Alkaline Phosphatase 82 Total Protein 7.8 Albumin 4.3 D Globulin 3.5 Albumin/Globulin Ratio 1.2 Quality Measures Quality Measures VTE prophylaxis Advance care planning discussed with:: patient and spouse Assessment & Plan Assessment Current Active Medications: Generic Name Dose Route Start Last Admin Trade Name Freq PRN Reason Stop Dose Admin Acetaminophen 650 mg 08/14/24 13:22 Acetaminophen 325 Mg Tablet PO 09/13/24 13:21 Q6H PRN Fever >100.3 or pain 1-3 Hydrocodone Bitart/Acetaminophen 1 tab 08/16/24 11:51 08/16/24 11:55 Hydrocodone/Apap 5/325 Tablet PO 08/21/24 11:50 1 tab Q6HR PRN Administration PAIN SCALE 4-6 (Moderate Aspirin 81 mg 08/15/24 21:00 08/18/24 21:27 Aspirin Ec 81 Mg Tabec PO 09/14/24 20:59 81 mg QPM ROD Administration Atorvastatin Calcium 20 mg 08/15/24 21:00 08/18/24 21:27 Atorvastatin Calcium 20 Mg Tablet PO 09/14/24 20:59 20 mg HS ROD Administration Carvedilol 6.25 mg 08/15/24 21:00 08/19/24 08:40 Carvedilol 3.125 Mg Tablet PO 09/14/24 20:59 6.25 mg BID ROD Administration Dapagliflozin 10 mg 08/15/24 16:15 08/19/24 08:40 Dapagliflozin Propanediol 5 Mg Tablet PO 09/14/24 16:14 10 mg QDAY ROD Administration Dextrose 25 ml 08/14/24 15:56 Dextrose 50%-Water Inj 50 Ml Syringe IV 09/13/24 15:55 Q15MIN PRN BG 50-70 responsive npo pt Dextrose 50 ml 08/14/24 15:56 Dextrose 50%-Water Inj 50 Ml Syringe IV 09/13/24 15:55 Q15MIN PRN BG <50 OR BG <70 & pt unresponsive Docusate Sodium 100 mg 08/15/24 11:18 08/15/24 21:17 Docusate Sod 100 Mg Capsule PO 09/14/24 11:17 100 mg QDAY PRN Administration CONSTIPATION Protocol Furosemide 40 mg 08/15/24 14:00 08/19/24 08:41 Furosemide Inj 10 Mg/Ml 4ml Vial IVP 09/14/24 13:59 40 mg QDAY ROD Administration Glucagon 1 mg 08/14/24 15:56 Glucagon Inj 1 Mg Vial IM Q15MIN PRN BG <70, and no IV access Insulin Human Lispro 0 unit 08/14/24 17:00 08/19/24 07:45 Insulin Lispro (Admelog) 1 Unit/0.01 Ml Unit SC 09/13/24 16:59 Not Given ACHS ROD Protocol Ondansetron HCl 4 mg 08/14/24 13:22 Ondansetron Inj 2 Mg/Ml Inj 2 Ml IVP 09/13/24 13:21 Q6H PRN NAUSEA OR VOMITING Protocol Sildenafil Citrate 20 mg 08/15/24 16:27 Sildenafil Cit 20 Mg Tablet (Non-Formulary) PO 09/14/24 16:26 HS PRN LUNG FUNCTION Plan The patient is a 78-year-old gentleman with past medical history significant for HFpEF, initially severe PAH with RSVP of 100 mmHg by right heart cath currently stable, PAD, NICOLAS, DM type II, hyperlipidemia, hypertension, CKD stage III, obesity, BPH and lumbar disc bulge presented to ED on 08/14/2024 with chief complaint of worsening of back pain leading to ground-level fall is currently being managed for generalized weakness and back pain. Given the patient's extensive cardiac history, cardiology consultation was done. #Mild CAD #PAD Patient will probably need surgery of his lower back, and for presurgical cardiac assessment, he will need left and right heart catheterization. Previously patient was offered left heart catheterization, as a stress test was inconclusive 2/2 morbid obesity and was found to have mildly reduced uptake in the inferior segment, but patient declined the procedure for left heart at that time. The patient has significant history of PAD, and significant risk factor for CAD with CKD stage III, hyperlipidemia, morbid obesity, NICOLAS, diabetes mellitus type 2 further requiring cardiac catheterization. -The patient underwent left heart cardiac catheterization and was found to have mild CAD with less than 20% stenosis in both LAD and mid RCA. -Continue the patient with Lasix 80 mg oral Lasix 80 mg oral to be continued at discharge along with aspirin 81 Mg in the evening, atorvastatin 20 Mg daily at night, carvedilol 6.25 Mg twice daily, Farxiga 10 Mg daily, sildenafil 20 Mg daily in the evening. -Recommended not to lift the more than 5 lbs with right hand for 1 week and keep the wrist pressure bandage for 24-48 hours; and F/U with Dr. Streeter in 1 week. -Continue with atorvastatin 20mg daily -Continue with aspirin 81mg daily. #Intractable back pain #Generalized weakness #Immobility Secondary to lumbar disc bulge as seen in previous lumbar MRI. - Pain management - Physical therapy #HFpEF #Hypertension #Pulmonary arterial hypertension His above conditions are stable with current medications, except for PAH Echo on 08/16 revealed Normal LV size with moderate LVH. Normal LV function with an estimated EF of 65 to 70%. Diastolic dysfunction present but could not be graded. Moderately dilated RV with RVH. Severely elevated RVSP between 80 to 90 mmHg. Mild flattening of the septum during systole indicating pressure overload. Mild TR and trace MR. Dilated IVC with <50% Collapse. Trace pericardial Effusion. - During discharge continue with home antihypertensive, GDMT and furosemide 80 Mg daily. - Sildenafil 20 mg daily #NICOLAS - Continue with CPAP at night along with 5 L oxygen #CKD stage III - Continue with Kerendia 20 Mg every other day, Mounjaro 10 Mg Monday morning, along with Farxiga 10 Mg. - Avoid nephrotoxic drugs - Renal dose medications #Hyperlipidemia #DM type II -Continue with atorvastatin 20 Mg at night - Maintain euglycemia with blood sugar range between 140-180. Thank you for consulting cardiology team. We appreciate for the opportunity to participate in this patient care. Recommended F/U after [address] Streeter. The patient's management plan was discussed with my attending physician MD Wilman Wade MD, PGY3 Attending Provider Attestation/Addendum I have personally seen and examined the patient separately on the above date of service and discussed the plan of care with the resident. I reviewed the resident Dr. Wilman Corea consultation progress note and agree with the resident findings and plan in the note above and have also edited the documentation to reflect my findings and plan. Librado Streeter M.D. Interventional Cardiology
--- NOTE | 2024-08-19 14:55 | PC.SS ---
SS booked [facility] via [employer]. SS spoke to Gabby who is ready to accept pt when ready. SS spoke to Marisela HUGHES who stated pt is getting heart cath. File Exchanged [facility] to [facility]
[2024-08-19] MEDS: hydrALAZINE INJ 20 MG/ML VIAL 10 MG IVP (15:14)
--- NOTE | 2024-08-19 15:52 | PC.SS ---
SS spoke to Marisela HUGHES pt has DC orders but pt still in [facility]. SS spoke to pt Christelle Cabello [phone] in regards to transport barrier. Christelle requested a quote from [facility].
--- NOTE | 2024-08-19 16:14 | PC.SS ---
SS spoke to Christelle pt , who stated she spoke to [facility] and the [place] $480 is too steep for her at this time. Pt is on 3L O2 therefore [place] will need to be utilized. [facility] will be granted for pt to DC to [facility]. SS updated [facility] [employer], who will prepare packet and transport.
--- NOTE | 2024-08-19 16:46 | PC.SS ---
Transport scheduled for 08:00 pm this evening. BOTTLE PACKING MACHINE CLEANER notified SNF, bedside nurse and patient's family.
--- NOTE | 2024-08-19 17:32 | PC.NURSE ---
patient transfered back to room. patient alert and oriented. dressing is clean dry and intact. site is soft, flat, non tender and no hematoma present. dressing assessed with antony duenas. hand off report given to antony duenas.
--- NOTE | 2024-08-19 18:20 | ESOP_ITS ---
Cardiac Cath Procedure Procedure Name Date of procedure: 08/19/2024 FURNITURE ASSEMBLER: Librado Streeter MD PROCEDURE PERFORMED: 1. Left heart cardiac catheterization- Left and right coronary angiograms with LVEDP measurement and left ventriculogram 2. Ultrasound-guided access of the right radial artery 3. Conscious sedation for 30 minutes.. 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 Patient apparently is going to see orthopedic surgeon for possible surgery or repair of previous lumbar spine hardware. Patient did have a nuclear stress test performed late last year which was positive but patient was not willing to do a left heart cardiac arrest at that point of time. Now patient is willing to do the left heart cardiac catheterization and patient is supposed to go for possible surgery and hence was scheduled for the same. Patient was explained the risk benefits and alternatives of performing a left heart cardiac catheterization including the risk of bleeding, heart attack, stroke and in detail and the agreeable for the procedure. Consent signed, placed in the chart and H&P updated. DESCRIPTION OF PROCEDURE: The patient was brought to the cardiac catheterization lab and all asceptic precautions were followed. Patient was given 1 Mg of Versed and 50 mcg of fentanyl for moderate conscious sedation. 2 mL of lidocaine was given in the right wrist. The right radial artery was accessed via the ultrasound guidance as well as micropuncture technique. A 6 [place] glide sheath was introduced. We then used a 5 [place] TIG 4 catheter to perform the left and right coronary angiograms as well as a left ventriculogram which showed the following findings. 1. LVEDP was normal at 14 mmHg. There was no significant transvalvular aortic gradient. LVEF was not measured as patient does have CKD and the creatinine was 1.6. 2. Right dominant circulation 3. Left main artery is a large-caliber vessel gives rise to LAD, LCX and without any significant disease. 4. LAD is a large sized artery with less than 20% stenosis in the mid LAD, gives rise to a medium size diagonal and without show any significant disease. 5. LCx is a large sized artery, gives rise to a medium OM1 and small OM2 without any significant disease. 6. RCA is a large artery with less than 20% stenosis in the mid RCA, gives rise to a medium RPDA and RPL without any significant disease. A radial band was used to achieve the hemostasis of the right radial artery access. Patient will be monitored in the cardiac personal property assessor for the next 2 to 3 hours and will be discharged home / telemetry later today if hemodynamically stable. Complications: None Specimens: None Blood loss: Estimated 5-10 ml Summary/findings: 1. Abnornal Stress test: LHC showed mild CAD with less than 20% gnosis in the mid LAD as well as the mid RCA. No angiographically significant obstruction. 2. LVEDP normal at 14 mmHg. No significant transvalvular aortic gradient. Recommendations: 1. Recommend aggressive medical treatment and aggressive risk factor modification. 2. Recommended no lifting more than 5 pounds for next 7-10 days and follow up in my office in 7 days. Librado Streeter MD Interventional Cardiology.
--- NOTE | 2024-08-19 19:45 | PC.NURSE ---
Report called to [facility], talked to Thais RN. Patient updated.
--- NOTE | 2024-08-19 22:00 | PC.NURSE ---
Follow up call made to dispatch. [place] updated.
== END 2024-08-19 22:25 | disposition skilled nursing facility (03) | DRG 551 ==
LOC: SERX 12:39 → SERHOLD 13:50 → S3NX 23:05
PROVIDERS: Internal Medicine Cardiovascular Disease; Student in an Organized Health Care Education/Training Program; Admitting Provider Internal Medicine; Emergency Provider Emergency Medicine; PCP Internal Medicine; Visit Provider Internal Medicine
PROC: 4A023N7 Measurement of Cardiac Sampling and Pressure, Left Heart, Percutaneous Approach (ICD-10-PCS; principal; 2024-08-19 13:00)
DX: M51.362 Other intervertebral disc degeneration, lumbar region with discogenic back pain and lower extremity pain (principal); J96.21 Acute and chronic respiratory failure with hypoxia; I13.0 Hypertensive heart and chronic kidney disease with heart failure and stage 1 through stage 4 chronic kidney disease, or unspecified chronic kidney disease; I50.32 Chronic diastolic (congestive) heart failure; Z68.41 Body mass index [BMI] 40.0-44.9, adult; I42.9 Cardiomyopathy, unspecified; M48.061 Spinal stenosis, lumbar region without neurogenic claudication; N18.30 Chronic kidney disease, stage 3 unspecified; E78.5 Hyperlipidemia, unspecified; G47.33 Obstructive sleep apnea (adult) (pediatric); Z99.81 Dependence on supplemental oxygen; E66.9 Obesity, unspecified; Z87.891 Personal history of nicotine dependence; G89.29 Other chronic pain; M54.9 Dorsalgia, unspecified; E11.22 Type 2 diabetes mellitus with diabetic chronic kidney disease; N40.0 Benign prostatic hyperplasia without lower urinary tract symptoms; Z91.81 History of falling; I45.10 Unspecified right bundle-branch block; I27.21 Secondary pulmonary arterial hypertension; E11.51 Type 2 diabetes mellitus with diabetic peripheral angiopathy without gangrene; E66.01 Morbid (severe) obesity due to excess calories; Z68.39 Body mass index [BMI] 39.0-39.9, adult; Z66 Do not resuscitate; Z74.01 Bed confinement status; I25.10 Atherosclerotic heart disease of native coronary artery without angina pectoris; K59.00 Constipation, unspecified; Z79.02 Long term (current) use of antithrombotics/antiplatelets; Z79.82 Long term (current) use of aspirin; Z79.899 Other long term (current) drug therapy; Z98.62 Peripheral vascular angioplasty status; Z85.46 Personal history of malignant neoplasm of prostate
CPT/HCPCS: 36415; 80053; 80061; 83036; 83735; 84100; 85025; 93225; 93306; 94762; 96374; 97162; 99152; 99153; A4649; C1769; C1887; C1894; J0360; J0461; J1643; J1644; J1815; J1938; J2250; J2270; J2310; J2371; J3010; J3475; J3490; J8499; Q9967; A9270; J2305

== ENCOUNTER 2024-09-09 09:10 | Inpatient (IN) | payer MEDICARE, BC, SELFPAY ==
[2024-09-09] VITALS (24 sets, daily range): BP systolic 102–156; BP diastolic 58–113; PULSE 64–114; RESP 12–83; TEMP 36.1–36.7; O2SAT 87–98
--- NOTE | 2024-09-09 09:13 | XR_ITS ---
Examination: AP chest single view Technique one AP portable upright chest single view Date and time: September 09, 2024 1005 hours Comparison August 07, 2024 INDICATIONS: Shortness breath today. FINDINGS: Mild enlargement cardiac contour Prominent central pulmonary arteries Moderate vascular congestion. No lobar pneumonia IMPRESSION: Pulmonary artery hypertension pattern Moderate vascular congestion
--- NOTE | 2024-09-09 09:13 | EKG_ITS ---
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: : 1945 Requested By: Alyce Sauer Order Number: [id number] Reading MD: Alyce Sauer Measurements Intervals [place] Rate: 85 P: 140 KS: 170 QRS: 151 QRSD: 119 T: 149 QT: 386 QTc: 460 Interpretive Statements SINUS RHYTHM INCOMPLETE RIGHT BUNDLE BRANCH BLOCK [90+ ms QRS DURATION, TERMINAL R IN V1/V2, 40+ ms S IN I/aVL/V4/V5/V6] RIGHT VENTRICULAR HYPERTROPHY [SOME/ALL OF: PROMINENT R IN V1, LATE TRANSITION, RAD, RUDY, SSS] POSSIBLE INFERIOR MYOCARDIAL INFARCTION , PROBABLY OLD [30 ms Q WAVE IN II/aVF] Compared to ECG 08/14/2024 11:09:02 Incomplete right bundle-branch block now present Atrial abnormality now present Right ventricular hypertrophy now present Myocardial infarct finding now present Right-axis deviation no longer present Right bundle-branch block no longer present /store/S0/[id number]/[id number].pdf
--- NOTE | 2024-09-09 09:13 | XR_ITS ---
Examination: CT brain head without contrast. 2-D sagittal coronal reconstructions Date and time of exam:September 09, 2024 0916 hours INDICATIONS: Stroke alert, onset slurred speech generalized body weakness focal neurologic deficits today CTDI: vol (mGy):6 9.3 DLP: (mGycm):1457 Technique: Multiple CT axial sections of the brain have been obtained, 5 mm slice thickness. Contrast has not been administered. 2-D sagittal, coronal reconstructions have been obtained Low dose protocols were performed. One or more of the following dose reduction techniques were used; automated exposure control, adjustment of the mA and/or KV according to patient size, use of iterative reconstruction technique. Findings: No significant ventricular enlargement. Intra-axial or extra-axial hemorrhage density is not seen. No mass effect or midline shift Basal cisterns are not remarkable. Fourth ventricle is midline. Cranial vault intact. Impression: Study is limited because of significant artifacts throughout the posterior fossa No gross hemorrhage mass effect or midline shift or midline shift
--- NOTE | 2024-09-09 09:13 | XR_ITS ---
Examination: CTA carotids with intravenous contrast CTA brain, head with intravenous contrast. 2-D sagittal, coronal reconstructions. 3-D reconstructions. Exam date and time: September 09, 2024 0932 hours INDICATIONS: Stroke alert today, onset focal neurologic deficit CTDI: vol (mGy) 39.6 DLP: (mGycm) 543 Technique: Multiple CTA axial brain, head carotid images post intravenous contrast injection 75 cc, [id number]. 2-D sagittal, coronal reconstructions. 3-D reconstructions, 3-D post processing including vascular maximum intensity projection images. Low dose protocols were performed. One or more of the following dose reduction techniques were used; automated exposure control, adjustment of the mA and/or KV according to patient size, use of iterative reconstruction technique. Findings: No significant common carotid carotid bifurcation or internal carotid artery stenoses Dominant left vertebral artery in the neck with no critical vertebral artery stenoses No cerebral large vessel arterial occlusions or thrombus IMPRESSION: No significant neck arterial stenoses No cerebral large vessel arterial occlusions or thrombus
--- NOTE | 2024-09-09 09:23 | PD.EDNEURO ---
Neuro Symptoms Deficit-RME/HPI General Stated Complaint: STROKE Time Seen by Provider: 09/09/24 09:22 Arrival date/time: 09/09/24 09:10 RME / HPI RME / HPI Narrative: 79 year old male with history of hypertension, diabetes, hyperlipidemia, CKD presents to the ED BIBA from [facility] for evaluation of slurred speech today. Per medics, [facility] staff reported finding the patient with slurred speech this morning during their rounds. On medics assessment, the patient noted to have mild slurred speech and left side to be weaker. Last known well at 9PM last night. Prehospital BS 154. Related Data Home Medications ?Medication ?Instructions ?Recorded ?Confirmed aspirin 81 mg capsule 81 mg PO .evening 12/15/22 08/15/24 atorvastatin 20 mg tablet 20 mg PO HS 12/15/22 08/15/24 dapagliflozin propanediol 10 mg 10 mg PO QDAY 12/15/22 08/15/24 tablet (Farxiga) finerenone 20 mg tablet (Kerendia) 20 mg PO .qod 12/15/22 08/15/24 furosemide 40 mg tablet (Lasix) 80 mg PO QAM 12/15/22 08/15/24 hydralazine 50 mg tablet 50 mg PO TID 12/15/22 08/15/24 pregabalin 50 mg capsule 100 mg PO .evening 12/15/22 08/15/24 sildenafil 25 mg tablet 20 mg PO .evening PRN Lung function 12/15/22 08/15/24 sitagliptin phosphate 100 mg 100 mg PO QDAY 12/15/22 08/15/24 tablet (Januvia) carvedilol 6.25 mg tablet 6.25 mg PO BID 08/07/24 08/15/24 tirzepatide 10 mg/0.5 mL 10 mg subcut QWEEK 08/07/24 08/15/24 subcutaneous pen injector (Mounjaro) cholecalciferol (vitamin D3) 25 2,000 unit PO QDAY 08/15/24 08/15/24 mcg (1,000 unit) tablet (Vitamin D3) Allergies Allergy/AdvReac Type Severity Reaction Status Date / Time No Known Allergies Allergy Verified 08/07/24 22:27 Review of Systems Review of Systems Systems Reviewed: All systems reviewed, normal except as documented Past Medical History Past Medical History NEUROLOGIC: Positive Neurological Disorders, Dementia, Brain Tumor and Peripheral Neuropathy CARDIAC: Positive Cardiac Disorders, Hypercholesterolemia, Congestive Heart Failure, Cardiomyopathy, Edema, Cellulitis, Deep Vein Thrombosis and Hypertension RESPIRATORY: Positive Bronchitis, Pneumonia, Tuberculosis and Sleep Apnea GASTROINTESTINAL: Positive Gastrointestinal Disorders, Ulcer, Hemorrhoids and Obesity GENITOURINARY: Positive Genitourinary Disorders, Renal Disease, Prostate Cancer and Benign Prostatic Hyperplasia MUSCULOSKELETAL: Positive Musculoskeletal Disorders, Arthritis, Scoliosis and Carpal Tunnel Syndrome ENT: Positive Cataracts ENDOCRINE: Positive Endocrine Disorders and Diabetes Mellitus Type 2 PSYCHO/SOCIAL: Positive Post Traumatic Stress Disorder OTHER HISTORY: Positive Hospitalization, Autoimmune Disease, Falls, Anesthesia Reactions, Radiation Therapy, Chicken Pox, Measles, Mumps, Cancer (prostate) and Prostate Cancer Family History FAMILY HISTORY: Positive Family Cardiac Disorders and Family Surgery Social History SMOKING STATUS: Never smoker SUBSTANCE USE: does not use ED Exam Narrative Physical exam: GENERAL APPEARANCE: alert and oriented x 4, well-developed, well-nourished, no acute distress HEENT: Normocephalic, atraumatic; pupils equal, round, reactive to light; EOMI; mucous membranes pink, moist; oropharynx clear NECK: Supple LUNGS: CTABL; no wheezes, no rales, no rhonchi HEART: Regular rate, regular rhythm; normal S1, S2; no murmurs ABDOMEN: non distended; normal BS; soft, no tenderness, no guarding, no rebound; no masses, no organomegaly, no hernia BACK: no CVA tenderness EXTREMITIES: atraumatic; no edema NEUROLOGIC: awake; alert and oriented x4; cranial nerves II-XII grossly intact; mild right pronator drift; asterixis PSYCHIATRIC: appropriate mood and affect SKIN: warm, dry, normal color; no rashes Course Course Course Narrative: 09: Patient evaluated in ED ambulance bay and sent to CT Quality Measures Suspected type of Stroke: Non Acute Last known well (date): 09/08/24 Last known well (time): 21:00 Tenecteplase given: Reason(s) TPA not given: Outside the time window not given stroke Orders Category Date Time Status Admit to Inpatient Status Routine Admission 09/09/24 11:11 Active Patient Condition Routine Admission 09/09/24 11:11 Ordered Bedside Blood Glucose NOW Care 09/09/24 09:13 Active Site Inspector NOW Care 09/09/24 09:13 Active Continuous Pulse Oximetry NOW Care 09/09/24 09:13 Completed EKG (ED ONLY) *Do not use* NOW Care 09/09/24 09:13 Completed In and Out Catheter NEEDED Care 09/09/24 09:13 Active Insert IV NOW Care 09/09/24 09:13 Active NIH Stroke Scale now Care 09/09/24 09:13 Active NPO NOW Care 09/09/24 09:13 Active Notify provider NEEDED Care 09/09/24 11:11 Active Nurse Swallow Screen x1 Care 09/09/24 09:13 Active Consult to Neurology / Tele-Neurology Routine Cons 09/09/24 09:[address] angio stroke protocol Stat Exams 09/09/24 09:[address] stroke protocol Stat Exams 09/09/24 09:13 Completed EKG (ED Only) Stat Exams 09/09/24 09:13 Draft XR chest 1V portable Stat Exams 09/09/24 09:13 Completed Alcohol, Blood Medical Stat Lab 09/09/24 10:48 Ordered B-Type Natriuretic Peptide Stat Lab 09/09/24 09:25 Completed CBC Stat Lab 09/09/24 09:25 Completed Comprehensive Metabolic Panel Stat Lab 09/09/24 09:25 Completed Drug Screen,Urine Stat Lab 09/09/24 10:00 Completed Magnesium Stat Lab 09/09/24 09:25 Completed Partial Thromboplastin Time Stat Lab 09/09/24 09:25 Completed Prothrombin Time with INR Stat Lab 09/09/24 09:25 Completed Troponin I Stat Lab 09/09/24 09:25 Completed Urinalysis Stat Lab 09/09/24 10:00 Completed Urine Culture Stat Lab 09/09/24 10:00 Received Labetalol IV [Trandate IV] Med 09/09/24 09:13 Discontinued 10 mg IVP Q15M PRN Ondansetron Inj [Zofran Inj] Med 09/09/24 09:13 Discontinued 4 mg IVP Q4HR PRN Oxygen Delivery NOW RT 09/09/24 09:13 Active Vital Signs Vital signs: Vital Signs Pulse Rate 96 09/09/24 09:17 Respiratory Rate 19 09/09/24 09:17 Blood Pressure 151/113 H 09/09/24 09:17 Pulse Oximetry (%) 94 L 09/09/24 09:17 Oxygen Delivery Method Nasal Cannula 09/09/24 09:17 Oxygen Flow Rate 4 09/09/24 09:17 Neuro Symptoms / Deficit MDM Narrative MDM Narrative:: Britni Bowen am scribing for and in the presence of Dr. Ashley. Patient data External records reviewed:: [facility] previous records (I reviewed admission from 08/14/2024 through 08/19/2024 ), EMS form and [facility] records (I reviewed pmhx and medication list from [facility]) Clinical information provided by:: patient and EMS Social determinants that could affect healthcare access:: housing ([place] resident ) Patient has the following chronic illnesses:: hypertension, diabetes, hyperlipidemia, CKD How is presenting disease/condition affected by chronic disease/condition?: exacerbated by Evaluation data The following diagnostics were reviewed and interpreted by me:: lab results, radiology exam(s) and EKG tracing(s) (09/09/2024 @ 09:57 AM. Incomplete RBBB, rate 85, Q-wave in lead III aVF V1 V2, IVCD, low voltage in lead II, diffuse flattening of the ST segments. ) Lab and/or radiology exams considered but not ordered:: None Interpretation Summary: Ordering Physician: Alyce Ashley MD Date of Service: 09/09/24 Procedure(s): CT stroke protocol Accession Number(s): [id number] cc: Deon Mckeon MD; Alyce Ashley MD~ Examination: CT brain head without contrast. 2-D sagittal coronal reconstructions Date and time of exam:September 09, 2024 0916 hours INDICATIONS: Stroke alert, onset slurred speech generalized body weakness focal neurologic deficits today CTDI: vol (mGy):6 9.3 DLP: (mGycm):1457 Technique: Multiple CT axial sections of the brain have been obtained, 5 mm slice thickness. Contrast has not been administered. 2-D sagittal, coronal reconstructions have been obtained Low dose protocols were performed. One or more of the following dose reduction techniques were used; automated exposure control, adjustment of the mA and/or KV according to patient size, use of iterative reconstruction technique. Findings: No significant ventricular enlargement. Intra-axial or extra-axial hemorrhage density is not seen. No mass effect or midline shift Basal cisterns are not remarkable. Fourth ventricle is midline. Cranial vault intact. Impression: Study is limited because of significant artifacts throughout the posterior fossa No gross hemorrhage mass effect or midline shift or midline shift Dictated By: Deon Mckeon MD Signed By: <Electronically signed by Deon Mckeon MD in OV> 09/09/24 0923 Ordering Physician: Alyce Ashley MD Date of Service: 09/09/24 Procedure(s): XR chest 1V portable Accession Number(s): [id number] cc: Comfort Rojas MD; Deon Mckeon MD; Alyce Ashley MD~ Examination: AP chest single view Technique one AP portable upright chest single view Date and time: September 09, 2024 1005 hours Comparison August 07, 2024 INDICATIONS: Shortness breath today. FINDINGS: Mild enlargement cardiac contour Prominent central pulmonary arteries Moderate vascular congestion. No lobar pneumonia IMPRESSION: Pulmonary artery hypertension pattern Moderate vascular congestion Dictated By: Deon Mckeon MD Signed By: <Electronically signed by Deon Mckeon MD in OV> 09/09/24 1027 Ordering Physician: Alyce Ashley MD Date of Service: 09/09/24 Procedure(s): CT angio stroke protocol Accession Number(s): [id number] cc: Comfort Rojas MD; Deon Mckeon MD; Alyce Ashley MD~ Examination: CTA carotids with intravenous contrast CTA brain, head with intravenous contrast. 2-D sagittal, coronal reconstructions. 3-D reconstructions. Exam date and time: September 09, 2024 0932 hours INDICATIONS: Stroke alert today, onset focal neurologic deficit CTDI: vol (mGy) 39.6 DLP: (mGycm) 543 Technique: Multiple CTA axial brain, head carotid images post intravenous contrast injection 75 cc, [id number]. 2-D sagittal, coronal reconstructions. 3-D reconstructions, 3-D post processing including vascular maximum intensity projection images. Low dose protocols were performed. One or more of the following dose reduction techniques were used; automated exposure control, adjustment of the mA and/or KV according to patient size, use of iterative reconstruction technique. Findings: No significant common carotid carotid bifurcation or internal carotid artery stenoses Dominant left vertebral artery in the neck with no critical vertebral artery stenoses No cerebral large vessel arterial occlusions or thrombus IMPRESSION: No significant neck arterial stenoses No cerebral large vessel arterial occlusions or thrombus Dictated By: Deon Mckeon MD Signed By: <Electronically signed by Deon Mckeon MD in OV> 09/09/24 1030 Medications / Prescriptions Medications or Prescriptions considered but not ordered:: None Medication administrations:: Medication Administration History Discontinued Medications Labetalol HCl (Labetalol Inj 5 Mg/Ml Vial 20 Ml) 10 mg IVP Q15M PRN PRN Reason: HYPER Ondansetron HCl (Ondansetron Inj 2 Mg/Ml Inj 2 Ml) 4 mg IVP Q4HR PRN PRN Reason: NAUSEA OR VOMITING Stop: 10/09/24 09:12 See above Consultations Consultation(s) initiated? (list below): Yes Consultation #1 (Physician, Specialty, Details): I spoke with teleneurologist Dr. Zhang. States patient is not a TNK candidate at this time. Time: 09:45 Consultation #2 (Physician, Specialty, Details): I spoke with resident Dr. Schultz working with hospitalist Dr. Riley. Discussed patients PMHx, HPI, ED course, exam findings, labs, and radiology results. The hospitalist agree to accept the patient for admission. Diagnosis Neuro Differential Diagnosis: subarachnoid hemorrhage, cerebrovascular accident and transient cerebral ischemia Most likely diagnosis given after review of the tests above:: Slurred speech Asterixis Admission Indicated Admission indicated?: indicated Admission Request Was there a request for admission?: Yes Admission Attestation Admission request attestation: Discussed case with [] from Hospitalist service regarding admission. Discussed patients ED course, exam findings, labs, and radiology results. The Hospitalist [agrees,declines] to accept the patient for admission. Disposition Plan Disposition Plan: Admit Critical Care Time Critical Care Time Critical Care Time: Yes Total Critical Care Time (min.): 35 Attestation: The high probability of sudden, clinically significant deterioration in the patient's condition required the highest level of my preparedness to intervene urgently. The services I provided to this patient were to treat and/or prevent clinically significant deterioration. Services included the following: chart data review, reviewing nursing notes and/or old charts, documentation time, store consultant collaboration regarding findings and treatment options, medication orders and management, direct patient care, vital sign assessments and ordering, interpreting and reviewing diagnostic studies and lab tests. Aggregate critical care time includes only time during which I was engaged in work directly related to the patient's care, as described above, whether at bedside or elsewhere in the Emergency Department. It did not include time spent performing other reported procedures or the services of residents, students, nurses or physician assistants. Discharge Plan Plan Patient Disposition: Admit Acute Care w/in Hospital Prescriptions/Referrals Prescriptions/Med Rec: No Action furosemide [Lasix] 40 mg Tablet 80 mg PO QAM atorvastatin 20 mg Tablet 20 mg PO HS sildenafil 25 mg Tablet 20 mg PO .evening PRN (Reason: Lung function) Rx Instructions: administer 30 minutes to 4 hours before activity hydralazine 50 mg Tablet 50 mg PO TID pregabalin 50 mg Capsule 100 mg PO .evening Januvia 100 mg Tablet 100 mg PO QDAY dapagliflozin propanediol [Farxiga] 10 mg Tablet 10 mg PO QDAY Kerendia 20 mg Tablet 20 mg PO .qod aspirin 81 mg Capsule 81 mg PO .evening cholecalciferol (vitamin D3) [Vitamin D3] 25 mcg (1,000 unit) tablet 2,000 unit PO QDAY carvedilol 6.25 mg tablet 6.25 mg PO BID Mounjaro 10 mg/0.5 mL pen injector 10 mg SUBCUT QWEEK Patient Comments: INJECT 10MG SUBCUTANEOUSLY WEEKLY Referrals: Comfort Rojas MD [Primary Care Provider] - In 1 week Problem List Clinical Impression: Slurred speech, Asterixis Patient/Caregiver Discharge Instructions Print Language: Sudanese Stand Alone Forms: [facility] Award Info., Patient Portal Info Letter
[2024-09-09 09:39] LABS: Basophils # (Auto) 0.1 Thou/mm3 (0.0-0.2); Basophils % (Auto) 1 % (0-2.5); Eosinophils # (Auto) 0.2 Thou/mm3 (0.0-0.5); Eosinophils % (Auto) 2 % (0-10); Hematocrit 44.9 % (41.0-53.0); Hemoglobin 15.4 g/dL (13.5-16.0); Immature Granulocytes Auto 0.14 Thou/mm3 (0.00-0.00); Lymphocytes # (Auto) 0.7 Thou/mm3 (1.0-4.8); Lymphocytes % (Auto) 9 % (10-50); Mean Corpuscular HGB Conc 34.3 g/dl (31.0-37.0); Mean Corpuscular Hemoglobin 30.3 pg (25.0-35.0); Mean Corpuscular Volume 88 fL (80-100); Monocytes # (Auto) 0.7 Thou/mm3 (0.0-0.8); Monocytes % (Auto) 8 % (0-12); Neutrophils # (Auto) 6.6 Thou/mm3 (1.8-7.7); Neutrophils % (Auto) 78 % (37-80); Nucleated Red Blood Cell # 0.02 Thou/mm3 (0.00-0.00); Nucleated Red Blood Cell % 0 /100 WBC (0); Platelet Count 206 Thou/mm3 (140-440); RDW Standard Deviation 50.5 fL (35.1-43.9); Red Blood Count 5.09 Miln/mm3 (4.50-5.90); White Blood Count 8.4 Thou/mm3 (3.8-10.6)
[2024-09-09 09:54] LABS: INR 1.1 (0.9-1.3); Partial Thromboplastin Time 26.5 Seconds (22.0-36.0); Prothrombin Time 12.2 Seconds (9.0-12.2)
--- NOTE | 2024-09-09 09:57 | ESCONSULT_ITS ---
Tele Neuro Consultation Consultation Date 09/09/24 Laboratory-Coagulation Panel PT 12.2 Seconds (9.0-12.2) 09/09/24 09:25 INR 1.1 (0.9-1.3) 09/09/24 09:25 APTT 26.5 Seconds (22.0-36.0) 09/09/24 09:25 Consultation Narrative [facility] Tele[facility]rology [facility] Patient Name:???Jimmy Trujillo Date of :???1945 Identification Number:??? Date of Service:???09/09/2024 09:07:30 Diagnosis:?R47.1 - Dysarthria and anarthria Impression: ?Patient is a 79-year-old gentleman past medical history significant for hypertension diabetes presents for evaluation of slurred speech and left-sided weakness. ? ?Assessment ?Dysarthria ?Weakness ? ?Patient presents with weakness and dysarthria. CT head is negative. Not a thrombolytic therapy. CTA head and neck are pending. Patient appears to be encephalopathic. If symptoms do not improve recommend MRI brain. ? ?- Treat Underlying Infection, severe electrolyte, acid base, endocrine or circulatory disturbances ?- Avoid sedating medication ?- Core temp > 36 degrees celsius ?- MAP 65 - 70 ?- [place] appropriate supportive measures ?- Adequate hydration and oxygenation, minimize physical restraints ?- Orienting stimuli to avoid day and night confusion ?- If symptoms do no resolve consider MRI brain ? Our recommendations are outlined below. Recommendations: ? Stroke/Telemetry Floor ? Neuro Checks (Q4) ? Bedside Swallow Eval ? DVT Prophylaxis ? IV Fluids, Normal Saline ? Head of Bed 30 Degrees ? Euglycemia and Avoid Hyperthermia (PRN Acetaminophen) Sign Out: ? Discussed with Emergency Department Provider Advanced Imaging:Advanced imaging has been ordered. Results pending. Metrics: Last Known Well: 09/08/2024 21:00:09 Dispatch Time: 09/09/2024 09:07:29 Arrival Time: 09/09/2024 09:10:26 Initial Response Time: 09/09/2024 09:08:21Symptoms: Slurred speech. Initial patient interaction: 09/09/2024 09:11:44 NIHSS Assessment Completed: 09/09/2024 09:53:38Patient is not a candidate for Thrombolytic. Thrombolytic Medical Decision: 09/09/2024 09:53:40Patient was not deemed candidate for Thrombolytic because of following reasons: LKW outside 4.[address] Head: I personally reviewed all the CT images that were available to me and it showed: no acute abnormalities Primary Provider Notified of Diagnostic Impression and Management Plan on: 09/09/2024 09:46:02 History of Present Illness:Patient is a 79 year old Male. Patient was brought by EMS for symptoms of Slurred speech. Patient is a 79-year-old gentleman past medical history significant for hypertension diabetes presents for evaluation of slurred speech and left-sided weakness. His last known normal at 9 oh 10 PM last night. He was noted to have slurred speech and left-sided weakness this morning. Also noted to have respiratory difficulties. Neurology is consulted to assist in management. ? Past Medical History: ?Hypertension ?Diabetes Mellitus ?Hyperlipidemia Medications: No Anticoagulant use? Antiplatelet use:?Yes?Asa Reviewed EMR for current medications Allergies:? Reviewed Social History: Smoking: No Alcohol Use: No Drug Use: No Family History: There is no family history of premature cerebrovascular disease pertinent to this consultation ROS : 14 Points Review of Systems was performed and was negative except mentioned in HPI. Past Surgical History: There Is No Surgical History Contributory To Today?s Visit ? Examination: BP(150/113),?Pulse(84), 1A: Level of Consciousness - Alert; keenly responsive?+ 0 1B: Ask Month and Age - 1 Question Right?+ 1 1C: Blink Eyes & Squeeze Hands - Performs Both Tasks?+ 0 2: Test Horizontal Extraocular Movements - Normal?+ 0 3: Test Visual [place] - No Visual Loss?+ 0 4: Test Facial Palsy (Use Grimace if Obtunded) - Normal symmetry?+ 0 5A: Test Left Arm Motor Drift - No Drift for 10 Seconds?+ 0 5B: Test Right Arm Motor Drift - No Drift for 10 Seconds?+ 0 6A: Test Left Leg Motor Drift - No Drift for 5 Seconds?+ 0 6B: Test Right Leg Motor Drift - No Drift for 5 Seconds?+ 0 7: Test Limb Ataxia (FNF/Heel-Mcrae) - No Ataxia?+ 0 8: Test Sensation - Normal; No sensory loss?+ 0 9: Test Language/Aphasia - Mild-Moderate Aphasia: Some Obvious Changes, Without Significant Limitation?+ 1 10: Test Dysarthria - Normal?+ 0 11: Test Extinction/Inattention - No abnormality?+ 0 NIHSS Score:?2 NIHSS Free Text :?asterixis Pre-Morbid Modified [place] Scale:0 Points = No symptoms at all Spoke with :?Dr. Ashley This consult was conducted in real time using interactive audio and video technology. Patient was informed of the technology being used for this visit and agreed to proceed. Patient located in hospital and provider located at home/office setting. Patient is being evaluated for possible acute neurologic impairment and high probability of imminent or life-threatening deterioration. I spent total of 40 minutes providing care to this patient, including time for face to face visit via telemedicine, review of medical records, imaging studies and discussion of findings with providers, the patient and/or family. Dr Олег Zhang [facility] For Inpatient follow-up with [facility] physician please call [facility] at . As we are not an outpatient service for any post hospital discharge needs please contact the hospital for assistance. If you have any questions for the [facility] physicians or need to reconsult for clinical or diagnostic changes please contact us via [facility] at . Signature :Carla Zhang
[2024-09-09 10:06] LABS: Collection Type, Urine Clean Catch
[2024-09-09 10:08] LABS: B-Type Natriuretic Peptide 225 pg/mL (0-100)
[2024-09-09 10:17] LABS: Bilirubin,Urine Negative (Negative); Blood,Urine Negative (Negative); Clarity,Urine Clear (Clear/Hazy); Color,Urine Lt-Yellow (Lt Yel-Yel); Glucose, Urine 4+ (Negative); Hyaline Casts,Urine < 1 /hpf (0-1); Ketones,Urine Negative (Negative); Leukocyte Esterase,Urine Negative (Negative); Nitrite,Urine Negative (Negative); PH,Urine 5.5 (5.0-7.0); Protein,Urine Trace (Neg - Trace); RBC,Urine 1 /hpf (0-3); Specific Gravity,Urine 1.019 (1.001-1.035); Squamous Epithelial Cell,Urine 1 /hpf (0-5); Urobilinogen,Urine Negative mg/dL (0.0-1.0); WBC,Urine 5 /hpf (0-5)
[2024-09-09 10:19] LABS: Alanine Aminotransferase < 7 U/L (10-49); Albumin, Serum 3.8 gm/dL (3.4-4.8); Albumin/Globulin Ratio 1.3 (1.2-2.2); Alkaline Phosphatase 109 U/L (46-116); Anion Gap 8 (7-16); Aspartate Amino Transferase < 8 U/L (0-34); BUN/Creatinine Ratio 14 Ratio (12-20); Bilirubin,Total 0.4 mg/dL (0.3-1.2); Blood Urea Nitrogen 31 mg/dL (9-23); Calcium 8.8 mg/dL (8.3-10.6); Calcium (Corrected) 9.0 mg/dL (8.5-10.1); Carbon Dioxide 33.1 mMol/L (20.0-31.0); Chloride 99 mMol/L (98-107); Creatinine (Component) 2.2 mg/dL (0.6-1.3); Globulin 3.0 gm/dL (2.3-3.5); Glucose 167 mg/dL (74-106); Magnesium 1.7 mg/dL (1.6-2.6); Osmolality,Calculated 289 (275-295); Potassium 4.4 mMol/L (3.4-5.1); Sodium 140 mMol/L (136-145); Total Protein 6.8 gm/dL (5.7-8.2); Troponin I 0.024 ng/mL (0.0-0.045); eGFR 30 See Note
[2024-09-09 10:34] LABS: Amphetamine/Methamp Scrn,U Negative (Negative); Barbiturate Screen,Urine Negative (Negative); Benzodiazepines Screen,Urine Negative (Negative); Benzoylecgonine Screen, Ur Negative (Negative); Fentanyl Screen,Urine Negative (Negative); Opiate Screen,Urine Positive (Negative); THC Screen,Urine Negative (Negative)
[2024-09-09 12:43] LABS: Alcohol, Blood Medical < 3.0 mg/dL (0-10.0)
--- NOTE | 2024-09-09 14:33 | PD.RESHP ---
Documentation for date of: 09/09/24 HPI History of Present Illness History of present illness: 79 M with PMHx hypertension, hyperlipidemia, type 2 diabetes mellitus, obesity, CHF, NICOLAS, CKD stage III who was BIBA due to slurred speech and Left sided weakness. His last known normal is 9pm yesterday. Patient is difficult to interview because of slurred speech, but occasionally speaks clearly. Per chart review patient uses CPAP 5L O2. His was called for collateral and she confirms his DNR status. She states that his R-sided shaking/tics began a couple weeks ago when he went to [place]. She states he was last normal yesterday around 9pm and that she was notified by [employer] employees that he had low oxygen levels and began becoming confused and slurring his speech. She confirms this is the first time she has ever heard him mumble like this. ED Course Summary: In the ED he was found to have retained CO2 of 33.1, BNP elevated, Creatinine was elevated but appears to be at baseline. Vitals: HR: 96, RR: 19, BP:151/113, pulse ox: 94, Nasal cannula 4L. EKG: incomplete RBBB, Q wave in lead III, aVF, V1, V2, IVCD, low voltage in lead II, diffuse flattening of the ST segments CT brain w/o con: study is limited b/c of significant artifacts throughout the posterior fossa. No gross hemorrhage mass effect or midline shift CXR: PAH, moderate vascular congestion CTA: No significant neck arterial stenoses. No cerebral large vessel arterial occlusions or thrombus Medical Hx: HTN, diabetes, hyperlipidemia, CKD, intractable back pain Medications: Januvia 100 mg, Farxiga 10 mg, Kerendia 20 mg every other day, Mounjaro 10 mg Monday AM, Furosdemide 80 mg, Hydralazine 50 mg 3x/day, Carvedilol 40 mg am/pm, pregabalin 50 mg x2 qhs, sildenafil 20 mg, atorvastatin 20 mg, aspirin 81 mg, vitamin d3 2000 iu, vitamin b12 1000 mg. 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 Patient admitted for stroke work up. Exam Vital Signs Temp Pulse Resp BP Pulse Ox O2 Del Method O2 Flow Rate 97.8 F 87 22 H 134/85 H 95 Nasal Cannula 4 09/09/24 14:18 09/09/24 14:18 09/09/24 14:18 09/09/24 14:02 09/09/24 14:18 09/09/24 14:18 09/09/24 14:18 Narrative Exam General: Morbidly obese gentleman, orientation status RADHIKA, rhythmic R-sided shaking (chronic) HEENT: Moist mucous membranes, oropharynx clear. L-sided facial droop, flattening of the nasal labial fold. Able to open up his eyes bilaterally Neck: Supple, No masses, No JVD CVS: Irregular rate and rhythm Lungs: Clear to auscultation with no accessory use, no wheeze no rhonchi, saturating 99% on 4 L NC. Abd: Soft, NT/ND, +BS, no organomegaly Back: Mild tenderness over L3-L4 region Ext: No edema, warm and well perfused Skin: No rash Psych: Appropriate mood and affect Results: Labs 09/10/24 05:04 09/10/24 05:04 Labs: Short CBC 09/09/24 Range/Units 09:25 WBC 8.4 (3.8-10.6) Thou/mm3 Hgb 15.4 (13.5-16.0) g/dL Hct 44.9 (41.0-53.0) % Plt Count 206 (140-440) Thou/mm3 BMP 09/09/24 09:25 Sodium 140 Potassium 4.4 Chloride 99 Carbon Dioxide 33.1 H BUN 31 H Creatinine 2.2 H Glucose 167 H Calcium 8.8 Cardiac Enzymes 09/09/24 Range/Units 09:25 Troponin I 0.024 (0.0-0.045) ng/mL Liver Function 09/09/24 Range/Units 09:25 Total Bilirubin 0.4 (0.3-1.2) mg/dL AST < 8 (0-34) U/L ALT < 7 L (10-49) U/L Alkaline Phosphatase 109 (46-116) U/L Albumin 3.8 (3.4-4.8) gm/dL Urine 09/09/24 Range/Units 10:00 Urine Color Lt-Yellow (Lt Yel-Yel) Urine Clarity Clear (Clear/Hazy) Urine pH 5.5 (5.0-7.0) Ur Specific Kramer 1.019 (1.001-1.035) Urine Protein Trace (Neg - Trace) Urine Glucose (UA) 4+ A (Negative) Quality Measures Quality Measures stroke Suspected type of Stroke: Non Acute Last known well (date): 09/08/24 Last known well (time): 21:00 Tenecteplase given: Reason(s) Tenecteplase not given: Outside the time window not given Rehab services: PT evaluation ordered and Speech Language Pathology eval ordered VTE Prophylaxis: pharmaceutical Antithrombotic by day 2:: ordered Statin ordered: >75 y/o moderate or high intensity dose Anticoagulation ordered for A-fib or flutter (current or hx): ordered Advance care planning discussed with:: spouse Medications Home Medications and Allergies Home Medications ?Medication ?Instructions ?Recorded ?Confirmed ?Type aspirin 81 mg capsule 81 mg PO QDAY 12/15/22 09/10/24 History atorvastatin 20 mg tablet 20 mg PO HS 12/15/22 09/10/24 History dapagliflozin propanediol 10 mg 10 mg PO QDAY 12/15/22 09/10/24 History tablet (Farxiga) finerenone 20 mg tablet (Kerendia) 20 mg PO .qod 12/15/22 09/10/24 History furosemide 40 mg tablet (Lasix) 80 mg PO BID 12/15/22 09/10/24 History hydralazine 50 mg tablet 50 mg PO TID 12/15/22 09/10/24 History pregabalin 50 mg capsule 100 mg PO .evening 12/15/22 09/10/24 History sildenafil 25 mg tablet 25 mg PO Q24H Lung function 12/15/22 09/10/24 History sitagliptin phosphate 100 mg 100 mg PO QDAY 12/15/22 09/10/24 History tablet (Januvia) carvedilol 6.25 mg tablet 6.25 mg PO BID 08/07/24 09/10/24 History tirzepatide 10 mg/0.5 mL 10 mg subcut QWEEK 08/07/24 09/10/24 History subcutaneous pen injector (Mounjaro) cholecalciferol (vitamin D3) 25 2,000 unit PO QDAY 08/15/24 09/10/24 History mcg (1,000 unit) tablet (Vitamin D3) acetaminophen 325 mg tablet 325 mg PO Q6H PRN pain (scale 09/10/24 09/10/24 History score 1-3) diphenhydramine 25 1 tab PO Q24H PRN pain (scale 09/10/24 09/10/24 History mg-acetaminophen 500 mg tablet score 1-3) (Acetadryl) hydrocodone 5 mg-acetaminophen 325 1 tab PO Q12H PRN back pain 09/10/24 09/10/24 History mg tablet Allergies Allergy/AdvReac Type Severity Reaction Status Date / Time No Known Allergies Allergy Verified 08/07/24 22:27 Visit Medications Discontinued Medications Labetalol HCl (Labetalol Inj 5 Mg/Ml Vial 20 Ml) 10 mg IVP Q15M PRN PRN Reason: HYPER Ondansetron HCl (Ondansetron Inj 2 Mg/Ml Inj 2 Ml) 4 mg IVP Q4HR PRN PRN Reason: NAUSEA OR VOMITING Stop: 10/09/24 09:12 Assessment & Plan Plan Assessment 79 M with PMHx hypertension, hyperlipidemia, type 2 diabetes mellitus, obesity, CHF, NICOLAS, CKD stage III who was BIBA from SNF and is admitted for stroke rule out. #Acute encephalopathy secondary to hypercapnia #Stroke ruled out New onset left sided facial droop, slurring of words. CT head is difficult to read due to posterior artifacts. CTA of neck showed no stenoses. NIHSS score of 2 with astrexis. Neurologist believe that the patient is encephalopathic rather than having any focal neurological deficit. Recommended to correct underlying cause Plan ? ABG ? Lipitor 40 mg by mouth Hs #Respiratory acidosis with metabolic alkalosis, in setting of #NICOLAS #PAH Pulmonary congestion seen on CXR. No cough noted on exam Weight of 131 kg Pt seems to have baseline of pCO2 in 60s~ -FUP patients cough and plan to diurese if congestion worsens. -biPAP Hs -Trend CMP #Hx of HTN -IV labetalol 10mg for SBP above 180 #HLD -Start Atorvastatin 40mg #Non insulin dependent type II Diabetes mellitus A1c 5.2 Plan: ?Bedside glucose monitoring every 12 hours #Health Maintenance Disposition: Telemetry DVT prophylaxis: Heparin GI prophylaxis: Not indicated at this time Diet: NPO pending swallow eval CODE STATUS: DNR Patient seen and care discussed with my attending physician, Dr. Riley and my senior resident, Dr. Marion Esparza MD PGY-1 Attending Provider Attestation/Addendum After examination of the patient and review of the clinical data I feel that this patient needs admission to the hospital for further treatment/evaluation. I have discussed and was present for the essential components of the history, physical examination, diagnosis, and treatment plan with the resident. I agree with the patient's care as documented by the resident and amended herein by me. Britton Riley DO. Although this document has been carefully reviewed, there may still be some phonetic and other typographical errors. These errors are purely grammatical due to imperfections in the software program and should not be construed in any way to compromise the substance of the patient's medical care during this visit.
[2024-09-09 15:27] LABS: Base Excess 5 (-3-3); HCO3 34 mEq/L (20-26); Inspired O2, VO2 Liters 5 L/min; O2 Saturation 97 % (91-98); PCO2 71 mmHg (32.0-48.0); PO2 84 mmHg (83-108); pH, Arterial 7.29 (7.35-7.45)
[2024-09-09 15:28] LABS: Allen Test Performed/OK; Puncture Site Right Radial
[2024-09-09 18:41] LABS: Base Excess 6 (-3-3); HCO3 35 mEq/L (20-26); Inspired Oxygen, FIO2 21 %; O2 Saturation 98 % (91-98); PCO2 69 mmHg (32.0-48.0); PO2 88 mmHg (83-108); pH, Arterial 7.31 (7.35-7.45)
[2024-09-09 18:44] LABS: Allen Test Performed/OK; Puncture Site Right Radial
[2024-09-09] MEDS: Magnesium Sulfate 4 GM Ivpb 4 GM/50 ML BAG IV (18:47)
[2024-09-09] MEDS: FUROSEMIDE INJ 10 MG/ML 4ML VIAL 40 MG IVP (18:51)
[2024-09-09] MEDS: HEPARIN SOD INJ 5000 UNIT/ML VIAL SC (18:53)
[2024-09-09] MEDS: ATORVASTATIN CALCIUM 20 MG TABLET 40 MG PO (21:43)
[2024-09-10] VITALS (9 sets, daily range): BP systolic 109–128; BP diastolic 57–74; PULSE 61–76; RESP 14–22; TEMP 36–36.7; O2SAT 95–100; BMI 39.2; BMI 12.0
[2024-09-10 05:58] LABS: Basophils # (Auto) 0.1 Thou/mm3 (0.0-0.2); Basophils % (Auto) 1 % (0-2.5); Eosinophils # (Auto) 0.2 Thou/mm3 (0.0-0.5); Eosinophils % (Auto) 2 % (0-10); Hematocrit 46.9 % (41.0-53.0); Hemoglobin 16.2 g/dL (13.5-16.0); Immature Granulocytes Auto 0.10 Thou/mm3 (0.00-0.00); Lymphocytes # (Auto) 0.6 Thou/mm3 (1.0-4.8); Lymphocytes % (Auto) 7 % (10-50); Mean Corpuscular HGB Conc 34.5 g/dl (31.0-37.0); Mean Corpuscular Hemoglobin 30.6 pg (25.0-35.0); Mean Corpuscular Volume 89 fL (80-100); Monocytes # (Auto) 0.8 Thou/mm3 (0.0-0.8); Monocytes % (Auto) 9 % (0-12); Neutrophils # (Auto) 6.8 Thou/mm3 (1.8-7.7); Neutrophils % (Auto) 79 % (37-80); Nucleated Red Blood Cell # 0.00 Thou/mm3 (0.00-0.00); Nucleated Red Blood Cell % 0 /100 WBC (0); Platelet Count 205 Thou/mm3 (140-440); RDW Standard Deviation 51.5 fL (35.1-43.9); Red Blood Count 5.30 Miln/mm3 (4.50-5.90); White Blood Count 8.5 Thou/mm3 (3.8-10.6)
[2024-09-10] MEDS: HEPARIN SOD INJ 5000 UNIT/ML VIAL SC (06:03)
[2024-09-10 06:16] LABS: INR 1.1 (0.9-1.3); Partial Thromboplastin Time 27.1 Seconds (22.0-36.0); Prothrombin Time 11.9 Seconds (9.0-12.2)
[2024-09-10 06:41] LABS: Alanine Aminotransferase < 7 U/L (10-49); Albumin, Serum 3.8 gm/dL (3.4-4.8); Albumin/Globulin Ratio 1.2 (1.2-2.2); Alkaline Phosphatase 108 U/L (46-116); Anion Gap 10 (7-16); Aspartate Amino Transferase < 10 U/L (0-34); BUN/Creatinine Ratio 14 Ratio (12-20); Bilirubin,Total 0.5 mg/dL (0.3-1.2); Blood Urea Nitrogen 27 mg/dL (9-23); Calcium 9.0 mg/dL (8.3-10.6); Calcium (Corrected) 9.2 mg/dL (8.5-10.1); Carbon Dioxide 34.4 mMol/L (20.0-31.0); Chloride 98 mMol/L (98-107); Creatinine (Component) 2.0 mg/dL (0.6-1.3); Globulin 3.1 gm/dL (2.3-3.5); Glucose 118 mg/dL (74-106); Magnesium 2.4 mg/dL (1.6-2.6); Osmolality,Calculated 289 (275-295); Phosphorous 4.0 mg/dL (2.4-5.1); Potassium 4.2 mMol/L (3.4-5.1); Sodium 142 mMol/L (136-145); Total Protein 6.9 gm/dL (5.7-8.2); eGFR 33 See Note
[2024-09-10 07:09] LABS: Thyroid Stimulating Hormone 2.63 uIU/mL (0.55-4.78)
[2024-09-10] MEDS: ASPIRIN EC 81 MG TABEC PO (08:30)
[2024-09-10 08:49] LABS: Base Excess, Venous 7 (-3-3); O2 Saturation, Venous 85 % (96-97); PCO2, Venous 53 mmHg (36-56); PO2, Venous 41 mmHg (15-58); pH, Venous 7.42 (7.33-7.66)
--- NOTE | 2024-09-10 10:57 | PD.TNEUROPRO ---
Tele Neuro Progress Note Progress Note Date 09/10/24 [facility] TeleNeurology Progress Note Date of Service 09/10/2024 Presentation: Based on previous neurology note(s) : 79-year-old gentleman past medical history significant for hypertension diabetes presents for evaluation of slurred speech and left-sided weakness. His last known normal at 9 oh 10 PM last night. He was noted to have slurred speech and left-sided weakness this morning. Also noted to have respiratory difficulties. Neurology is consulted to assist in management. initial NIHSS 2, had asterixis on aspirin prior to admission. Interval history: 09/10/2024: asterixis, altered mental status and slurred speech resolved Impression: asterixis (now resolved) altered mental status, slurred speech (resolved) Recommendations: (Primary Team to order Controlled Medications) Unless specifically noted I Agree with Impression and Plan from previous Neurology note/consult. 1- asterixis is likely due to lyrica in setting of renal impairment, hold for now. No further inpatient testing needed from neurological perspective, patient to follow up with outpatient neurology in 2-3 weeks. Will sign off. Please contact [facility] Navigator to reach me if further questions/concerns arise. Examination: Examination done through interactive audio and video telecommunications with the assist of bedside nursing (when available) awake, alert, oriented x3 speech no aphasia Extraocular movements intact face symmetric arms no drift (10s) coordination intact in finger to nose Patient / Family was informed the Neurology Consult would occur via TeleHealth consult by way of interactive audio and video telecommunications and consented to receiving care in this manner. Patient is being evaluated for possible acute neurologic impairment and high probability of imminent or life - threatening deterioration. I spent total of 15 minutes providing care to this patient, including time for face to face visit via telemedicine, review of medical records, imaging studies and discussion of findings with providers, the patient and / or family. Dr Reji Terrell [facility] For Inpatient follow-up with [facility] physician please call [facility] . This is not an outpatient service. Post hospital discharge, please contact hospital directly. Please do not communicate with [facility] physicians via secure chat. If you have any questions, Please contact [facility]. Please call or reconsult our service if there are any clinical or diagnostic changes. Most Recent Vital Signs Last Vital Signs Temp 96.8 F 09/10/24 08:00 Pulse 76 09/10/24 08:30 Resp 16 09/10/24 08:00 BP 109/57 L 09/10/24 08:30 Pulse Ox 96 09/10/24 08:00 O2 Del Method Nasal Cannula 09/10/24 08:00 O2 Flow Rate 5 09/10/24 08:00 FiO2 50 09/10/24 06:14 Laboratory-Coagulation Panel PT 11.9 Seconds (9.0-12.2) 09/10/24 05:04 INR 1.1 (0.9-1.3) 09/10/24 05:04 APTT 27.1 Seconds (22.0-36.0) 09/10/24 05:04
--- NOTE | 2024-09-10 11:30 | PC.SS ---
CYBER SOFTWARE ENGINEER conducted bedside contact with the patient conduct initial assessment and to discuss discharge planning.? Patient confirmed demographic information.? Patient is a resident at [facility].? Patient has been at [facility] for approximately 3 weeks.? Patient utilizes a walker to assist with ambulation.? Patient utilizes oxygen at facility.? Patient requires assistance with completion of ADL?s.? Patient identified spouse, Christelle Alvarezrobinjanel ; as medical surrogate decision maker.? Facility PCP is Comfort Rojas.? Patient does not participate with dialysis.? Patient?s senior front end engineer is Dr. Ruiz.? Plan is for the patient to return to [place] at the time of discharge.? student services rep to assist with scheduling transportation on behalf of the patient. ?No further discharge needs identified by the patient.? No further intervention required at this time, social services aide will be available to address any further concerns.? Next of Kin: Christelle Murray D/C Plan: [facility]
--- NOTE | 2024-09-10 12:25 | PC.SS ---
Updated clinicals submitted to [facility]. [employer]UCCO PLASTERER confirmed with [facility] staff that facility can accept patient back for placement.
--- NOTE | 2024-09-10 13:55 | ESDS_ITS ---
<Statement entered by Gisel Schultz MD - 09/11/24 15:24> I have reviewed the note and agree with the resident's assessment & plan with exceptions as below. I have personally reviewed labs, imaging, home meds/prior records, examined the patient, formulated and discussed management plan with the IM team. Patient examined at bedside today. Patient reports continual improvement. He is wanting limiting open. We attempted to reach patient's primary care, CPAP company in order to investigate settings for CPAP, however we were unable to access those settings. Encephalopathy likely related to metabolic and carbon dioxide narcosis. Patient will likely need to continue outpatient follow-up and continue using CPAP at night. Patient was then discharged with instructions listed below. Gisel Schultz, PGY-2 Internal Medicine Planned Discharge Date 09/10/24 DS: Providers Provider Date of admission: 09/09/24 11:11 Primary care physician: Comfort Rojas MD Admitting Provider: Tito Riley DO Attending Provider on Admission: Tito Riley DO Consults: 09/09/24 09:13 Consult to Neurology / Tele-Neurology Routine Comment: Consulting Provider: [facility] 09/09/24 16:45 Referral Speech Therapy Routine Comment: Attending Provider on DC: Tito Riley DO Discharging Provider: Tito Riley DO DS: Diagnosis Problem List Completed Was Problem List Reviewed/Reconciled?: Yes Hospital Course Hospital Course Hospital course: 79 M with PMHx CPAP 5L H2O with supplemental oxygen at home, hypertension, hyperlipidemia, type 2 diabetes mellitus, obesity, CHF, NICOLAS, CKD stage III who was BIBA from SNF due to slurred speech and left sided weakness admitted for stroke work up. ED Course Summary: In the ED he had elevated HR and blood pressure. Stroke work up was negative. ABG revealed hypercarbia. Patient started on 4L O2 nasal cannula. Hospital Course: Patient was seen by Neurology NIHSS: 2 with asterixis deemed most likely secondary to lyrica. Repeat ABG confirmed hypercarbia and patient deemed to be encephalopathic due to CO2 retention. Patient improved on CPAP with settings: IPAP: 14, EPAP: 6, FiO2:50% on 4-5 L nasal cannula. Family confirmed back to baseline. Patient encouraged to follow up with electronic publisher to adjust vent settings. Discharge Instructions: Follow-up with PCP within 1 week continue taking medicines as prescribed Continue using BiPAP at home. We were unable to get your exact settings despite calling the [facility] and the SNF. I am stopping your baclofen at this time, speak with your PCP in regards to resuming this medicine. We are concerned for polypharmacy at this time. Return to ED if your symptoms worsen or return #Acute encephalopathy #Stroke ruled out #Respiratory acidosis with metabolic alkalosis, in setting of #NICOLAS #PAH #Hx of HTN #HLD #Non insulin dependent type II Diabetes mellitus Patient's plan and care discussed with my attending, Dr. Riley, and supervising residents Dontrell Celestin MD, and MD Juve Guevara MD Internal Medicine PGY-1 Time Spent with Patient Time attestation: Total time spent providing and/or coordinating discharge services: Time spent: Greater than 30 minutes Quality: Stroke Pt Provided Written Stroke Discharge Instructions: Yes Exam Vital Signs Temp Pulse Resp BP Pulse Ox O2 Del Method O2 Flow Rate 96.8 F 76 16 109/57 L 96 Nasal Cannula 5 09/10/24 08:00 09/10/24 08:30 09/10/24 08:00 09/10/24 08:30 09/10/24 08:00 09/10/24 08:00 09/10/24 08:00 FiO2 50 09/10/24 06:14 Narrative Exam General: Morbidly obese gentleman, AOx3, rhythmic R-sided shaking (chronic) much improved HEENT: Moist mucous membranes, oropharynx clear. Chronic L side facial droop much improved Neck: Supple, No masses, No JVD CVS: RRR, S1 and S2, no murmurs heard. Lungs: Clear to auscultation with no accessory use, no wheeze no rhonchi, saturating 99% on 5 L NC. Abd: Soft, NT/ND, +BS, no organomegaly Back: Mild tenderness over L3-L4 region Ext: No edema, warm and well perfused Skin: No rash Psych: Appropriate mood and affect Discharge Plan Plan Patient Disposition: HOME (Self Care) Patient condition on transfer: Stable Care Plan Goals: Discharge Instructions: Follow-up with PCP within 1 week continue taking medicines as prescribed Continue using BiPAP at home. We were unable to get your exact settings despite calling the company and the SNF. I am stopping your baclofen at this time, speak with your PCP in regards to re suming this medicine. We are concerned for polypharmacy at this time. Return to ED if your symptoms worsen or return Prescriptions/Referrals Prescriptions/Med Rec: Continued furosemide [Lasix] 40 mg Tablet 80 mg PO BID Rx Instructions: Hold of Sbp<100 Dbp<60 HR<60 atorvastatin 20 mg Tablet 20 mg PO HS sildenafil 25 mg Tablet 25 mg PO Q24H Rx Instructions: administer 30 minutes to 4 hours before activity hydralazine 50 mg Tablet 50 mg PO TID Rx Instructions: Hold if SBP<100 DBP<60 HR<60 pregabalin 50 mg Capsule 100 mg PO .evening Januvia 100 mg Tablet 100 mg PO QDAY dapagliflozin propanediol [Farxiga] 10 mg Tablet 10 mg PO QDAY Kerendia 20 mg Tablet 20 mg PO .qod aspirin 81 mg Capsule 81 mg PO QDAY cholecalciferol (vitamin D3) [Vitamin D3] 25 mcg (1,000 unit) tablet 2,000 unit PO QDAY hydrocodone-acetaminophen 5-325 mg tablet 1 tab PO Q12H PRN (Reason: back pain) acetaminophen 325 mg tablet 325 mg PO Q6H PRN (Reason: pain (scale score 1-3)) diphenhydramine-acetaminophen [Acetadryl] 25-500 mg tablet 1 tab PO Q24H PRN (Reason: pain (scale score 1-3)) carvedilol 6.25 mg tablet 6.25 mg PO BID Rx Instructions: Hold if Sbp<100 Dbp <60 HR<60 Mounjaro 10 mg/0.5 mL pen injector 10 mg SUBCUT QWEEK Patient Comments: INJECT 10MG SUBCUTANEOUSLY WEEKLY (every Monday) Discontinued baclofen 5 mg tablet 5 mg PO BID Rx Instructions: Hold for sedation, contact Referrals: Comfort Rojas MD [Primary Care Provider] - Patient/Caregiver Discharge Instructions Discharge Activity: activity as tolerated Education Materials: What Is a BPAP?, Using a BPAP, Heart Failure Sleep Problems Print Language: Belgian Stand Alone Forms: [employer] Award Info., Patient Portal Info Letter Discharge Order Discharge Orders: Discharge (Routine); Ordered 09/10/24 Ordered By: Gisel Schultz Quality Discharge Quality Measures VTE prophylaxis Attestestation Attestation I have discussed and was present for the essential components of the discharge history, physical examination, diagnosis, and discharge treatment plan with the resident. I agree with the patient's discharge care as documented by the resident and amended herein by me. Britton Riley DO. The patient understood all discharge instructions, all questions were answered satisfactorily. The patient was instructed to return to the Emergency Department is symptoms worsened or persisted. Patient was stable, afebrile, tolerating p.o. intake at time of discharge back to SNF. Patient will need close follow-up with primary care physician and likely need his CPAP machine adjusted as he came in hypercarbic. May also need some medication adjustment, we are going to hold the baclofen until he sees his PCP as polypharmacy may be an issue for the patient. All questions were answered, his is at bedside, stable for discharge back to SNF Although this document has been carefully reviewed, there may still be some phonetic and other typographical errors. These errors are purely grammatical due to imperfections in the software program and should not be construed in any way to compromise the substance of the patient's medical care during this visit.
--- NOTE | 2024-09-10 15:26 | PC.SS ---
Ambulance transport scheduled for 06:00 pm. [facility] to transport patient to [facility]. INCIDENT HANDLER notified patient, bedside nurse SNF and patient's family.
== END 2024-09-10 18:15 | disposition home or self-care (01) | DRG 71 ==
LOC: SERX 11:26 → SERHOLD 11:28 → S2NX 15:02
PROVIDERS: Student in an Organized Health Care Education/Training Program; Admitting Provider Student in an Organized Health Care Education/Training Program; Emergency Provider Emergency Medicine; PCP Hospitalist; Visit Provider Student in an Organized Health Care Education/Training Program
DX: G93.41 Metabolic encephalopathy (principal); E87.4 Mixed disorder of acid-base balance; I13.0 Hypertensive heart and chronic kidney disease with heart failure and stage 1 through stage 4 chronic kidney disease, or unspecified chronic kidney disease; R47.1 Dysarthria and anarthria; E78.5 Hyperlipidemia, unspecified; E11.22 Type 2 diabetes mellitus with diabetic chronic kidney disease; N18.30 Chronic kidney disease, stage 3 unspecified; I50.9 Heart failure, unspecified; G47.33 Obstructive sleep apnea (adult) (pediatric); Z66 Do not resuscitate; E66.01 Morbid (severe) obesity due to excess calories; R29.810 Facial weakness; E66.9 Obesity, unspecified; Z78.1 Physical restraint status; Z79.84 Long term (current) use of oral hypoglycemic drugs; Z79.899 Other long term (current) drug therapy; Z99.81 Dependence on supplemental oxygen; R27.8 Other lack of coordination
CPT/HCPCS: 36415; 36600; 70450; 70496; 70498; 71045; 80053; 80307; 80320; 81001; 82803; 83735; 83880; 84100; 84443; 84484; 85025; 85610; 85730; 87081; 87086; 93005; 94660; 97162; 99284; A4649; J1644; J1938; J3475; Q9967; A9270; G0480

== ENCOUNTER 2024-10-05 22:38 | Emergency (ER) | payer MEDICARE, BC, SELFPAY ==
[2024-10-05 23:09] VITALS: BP 127/67; PULSE 87; RESP 20; TEMP 36.7; O2SAT 95
[2024-10-05 23:25] VITALS: PULSE 75; RESP 16; O2SAT 98
--- NOTE | 2024-10-05 23:40 | XR_ITS ---
Examination: Knee, right , 3 views Technique: Knee AP, lateral, oblique 3 views Date and time of exam: October 06, 2024, 0014 hrs. Indications: Patient fell today with injury to the knee, knee pain. Findings: Moderate to advanced narrowing medial joint space Moderate osteoarthritis patellofemoral joint. Severe osteopenia. No acute fracture. Moderate knee effusion. Impression: No acute fracture.
--- NOTE | 2024-10-05 23:40 | PD.EDFALL ---
ED Fall Injury RME/HPI General Chief Complaint: Fall Stated Complaint: RIGHT KNEE PAIN Arrival date/time: 10/05/24 22:38 RME / HPI RME / HPI Narrative: DR. HUSTON MAIN ED EVALUATION: 79 y/o walker dependent male with Hx of Type II DM, Arthritis, and Peripheral Neuropathy presents to ED BIBA from home c/o BL knee pain s/p falling to his knees aftger walker got away from him x over 12 hours ago. Right knee pain is greater than left with pain radiating down to the ankle. Denies any allergies to medications. No other concerns or complaints expressed at this time. Related Data Home Medications ?Medication ?Instructions ?Recorded ?Confirmed aspirin 81 mg capsule 81 mg PO QDAY 12/15/22 09/10/24 atorvastatin 20 mg tablet 20 mg PO HS 12/15/22 09/10/24 dapagliflozin propanediol 10 mg 10 mg PO QDAY 12/15/22 09/10/24 tablet (Farxiga) finerenone 20 mg tablet (Kerendia) 20 mg PO .qod 12/15/22 09/10/24 furosemide 40 mg tablet (Lasix) 80 mg PO BID 12/15/22 09/10/24 hydralazine 50 mg tablet 50 mg PO TID 12/15/22 09/10/24 pregabalin 50 mg capsule 100 mg PO .evening 12/15/22 09/10/24 sildenafil 25 mg tablet 25 mg PO Q24H Lung function 12/15/22 09/10/24 sitagliptin phosphate 100 mg 100 mg PO QDAY 12/15/22 09/10/24 tablet (Januvia) carvedilol 6.25 mg tablet 6.25 mg PO BID 08/07/24 09/10/24 tirzepatide 10 mg/0.5 mL 10 mg subcut QWEEK 08/07/24 09/10/24 subcutaneous pen injector (Dre) cholecalciferol (vitamin D3) 25 2,000 unit PO QDAY 08/15/24 09/10/24 mcg (1,000 unit) tablet (Vitamin D3) acetaminophen 325 mg tablet 325 mg PO Q6H PRN pain (scale 09/10/24 09/10/24 score 1-3) diphenhydramine 25 1 tab PO Q24H PRN pain (scale 09/10/24 09/10/24 mg-acetaminophen 500 mg tablet score 1-3) (Acetadryl) hydrocodone 5 mg-acetaminophen 325 1 tab PO Q12H PRN back pain 09/10/24 09/10/24 mg tablet Allergies Allergy/AdvReac Type Severity Reaction Status Date / Time No Known Allergies Allergy Verified 10/05/24 23:25 Review of Systems Review of Systems Systems Reviewed: All systems reviewed, normal except as documented Past Medical History Past Medical History NEUROLOGIC: Positive Neurological Disorders, Dementia, Brain Tumor and Peripheral Neuropathy CARDIAC: Positive Cardiac Disorders, Hypercholesterolemia, Cardiomyopathy, Edema, Cellulitis, Deep Vein Thrombosis and Hypertension RESPIRATORY: Positive Bronchitis, Pneumonia, Tuberculosis and Sleep Apnea GASTROINTESTINAL: Positive Gastrointestinal Disorders, Ulcer, Hemorrhoids and Obesity GENITOURINARY: Positive Genitourinary Disorders, Renal Disease, Prostate Cancer and Benign Prostatic Hyperplasia MUSCULOSKELETAL: Positive Musculoskeletal Disorders, Arthritis, Scoliosis and Carpal Tunnel Syndrome ENT: Positive Cataracts ENDOCRINE: Positive Endocrine Disorders and Diabetes Mellitus Type 2 PSYCHO/SOCIAL: Positive Post Traumatic Stress Disorder OTHER HISTORY: Positive Autoimmune Disease, Falls, Anesthesia Reactions, Radiation Therapy, Chicken Pox, Measles, Mumps, Cancer and Prostate Cancer Family History FAMILY HISTORY: Positive Family Cardiac Disorders and Family Surgery Social History SMOKING STATUS: Former smoker ED Exam Narrative Physical exam: Generally patient is alert in no obvious distress, heart regular rate and rhythm, lungs clear to auscultation equal bilaterally, abdomen obese soft nontender, extremities show very slight abrasion to the distal portion of the left knee with full range of motion left knee without tenderness. Patient has mild swelling to the right knee with mild tenderness but no deformity or wound. Course Quality Measures none Orders Category Date Time Status XR knee RT 3V Stat Exams 10/05/24 23:40 Taken Ketorolac Inj [Toradol Inj] Med 10/05/24 23:40 Discontinued 60 mg IM X1 ONE Vital Signs Vital signs: Vital Signs Temperature 98.1 F 10/05/24 23:09 Pulse Rate 87 10/05/24 23:09 Respiratory Rate 20 10/05/24 23:09 Blood Pressure 127/67 10/05/24 23:09 Pulse Oximetry (%) 95 10/05/24 23:09 Oxygen Delivery Method Room Air 10/05/24 23:09 Fall MDM Narrative MDM Narrative:: Scribe Attestation: I, Cinthya Bran, am scribing for and in the presence of Dr. Huston. Provider Notation: Although this document has been carefully reviewed, there may still be some phonetic and other typographical errors. These errors are purely grammatical due to imperfections in the software program and should not be construed in any way to compromise the substance of the patient's medical care during this visit. Differential diagnosis: Fracture, sprain, contusion, abrasion Patient received Toradol 60 mg IM with benefit. X-ray of the right knee showed no fracture no dislocation. It does show degenerative joint disease. Patient will be discharged in stable condition to continue home management. Patient data External records reviewed:: [facility] previous records (Reviewed prior ED record from 09/09/24. Patient was seen for [employer].) and EMS form Clinical information provided by:: patient and EMS Social determinants that could affect healthcare access:: none Patient has the following chronic illnesses:: Dementia, Brain Tumor, Peripheral Neuropathy, Hypercholesterolemia, Cardiomyopathy, Edema, Cellulitis, Deep Vein Thrombosis, Hypertension, Tuberculosis, Sleep Apnea, Ulcer, Hemorrhoids, Obesity, Renal Disease, Prostate Cancer, Benign Prostatic Hyperplasia, Arthritis, Scoliosis, Carpal Tunnel Syndrome, Cataracts, Diabetes Mellitus Type 2, Post Traumatic Stress Disorder How is presenting disease/condition affected by chronic disease/condition?: exacerbated by Evaluation data The following diagnostics were reviewed and interpreted by me:: radiology exam(s) Lab and/or radiology exams considered but not ordered:: None Interpretation Summary: RADIOLOGY Right Knee X-Ray: Pending official radiology report. Medications / Prescriptions Medications or Prescriptions considered but not ordered:: None Medication administrations:: Medication Administration History Discontinued Medications Ketorolac Tromethamine (Ketorolac Inj 60 Mg/2 Ml Vial) 60 mg IM X1 ONE Stop: 10/05/24 23:41 Last Admin: 10/06/24 00:00 Dose: 60 mg Documented By: BD See above if any. Consultations Consultation(s) initiated? (list below): No Diagnosis Fall Differential Diagnosis: syncope, compression fracture and other (compression fracture, comminuted fracture, contusion, abrasion) Most likely diagnosis given after review of the tests above:: None Admission Indicated Admission indicated?: not indicated Admission Request Was there a request for admission?: No Disposition Plan Disposition Plan: Discharge Discharge Attestation Discharge Attestation: The patient and all family members were given an opportunity to ask questions and understood the discharge instructions. Discharge instructions specifically effects, indications for sooner follow up or return to the emergency department, and the expected course of current diagnosis. Patient condition: Stable Discharge Plan Plan Patient Disposition: HOME (Self Care) Prescriptions/Referrals Prescriptions/Med Rec: No Action furosemide [Lasix] 40 mg Tablet 80 mg PO BID Rx Instructions: Hold of Sbp<100 Dbp<60 HR<60 atorvastatin 20 mg Tablet 20 mg PO HS sildenafil 25 mg Tablet 25 mg PO Q24H Rx Instructions: administer 30 minutes to 4 hours before activity hydralazine 50 mg Tablet 50 mg PO TID Rx Instructions: Hold if SBP<100 DBP<60 HR<60 pregabalin 50 mg Capsule 100 mg PO .evening Januvia 100 mg Tablet 100 mg PO QDAY dapagliflozin propanediol [Farxiga] 10 mg Tablet 10 mg PO QDAY Kerendia 20 mg Tablet 20 mg PO .qod aspirin 81 mg Capsule 81 mg PO QDAY cholecalciferol (vitamin D3) [Vitamin D3] 25 mcg (1,000 unit) tablet 2,000 unit PO QDAY hydrocodone-acetaminophen 5-325 mg tablet 1 tab PO Q12H PRN (Reason: back pain) acetaminophen 325 mg tablet 325 mg PO Q6H PRN (Reason: pain (scale score 1-3)) diphenhydramine-acetaminophen [Acetadryl] 25-500 mg tablet 1 tab PO Q24H PRN (Reason: pain (scale score 1-3)) carvedilol 6.25 mg tablet 6.25 mg PO BID Rx Instructions: Hold if Sbp<100 Dbp <60 HR<60 Mounjaro 10 mg/0.5 mL pen injector 10 mg SUBCUT QWEEK Patient Comments: INJECT 10MG SUBCUTANEOUSLY WEEKLY (every Monday) Referrals: Ken Guevara MD [Primary Care Provider] - In 1 week Problem List Clinical Impression: Fall, Knee pain Patient/Caregiver Discharge Instructions Additional Instructions: Continue current home management. Follow-up with your doctor as needed. Print Language: Swedish Stand Alone Forms: [employer] Award Info., Patient Portal Info Letter
[2024-10-06] MEDS: KETOROLAC INJ 60 MG/2 ML VIAL IM
[2024-10-06 01:00] VITALS: BP 155/94; PULSE 71; RESP 16; TEMP 36.9; O2SAT 95
== END 2024-10-06 01:41 | disposition home or self-care (01) ==
PROVIDERS: Emergency Provider Emergency Medicine; PCP Internal Medicine
DX: M25.561 Pain in right knee (principal); M17.11 Unilateral primary osteoarthritis, right knee; W19.XXXA Unspecified fall, initial encounter
CPT/HCPCS: 73562; 96372; 99283; J1885